=== PATIENT | male | born 1955 | race Caucasian/White ===

== ENCOUNTER 2025-07-20 14:23 | Inpatient (IN) | payer MEDICARE, MEDICAID, SELFPAY ==
[2025-07-20] VITALS (8 sets, daily range): BP systolic 110–138; BP diastolic 53–72; PULSE 79–101; RESP 16–20; TEMP 36.6–37.2; O2SAT 94–100; BMI 24.8
--- NOTE | ~2025-07-20 | FL_ITS ---
EXAMINATION: FL GUIDANCE ONLY HISTORY: stone COMPARISON: Correlation is made with an unenhanced CT of the abdomen and pelvis dated 07/20/2025. TECHNIQUE: Fluoroscopy time: 35 seconds. Cumulative Dose: 9.60 mGy. DAP: 1989.10 mGycm2 Images: 5. FINDINGS: A right ureterogram demonstrates an ovoid filling defect in the distal ureter consistent with the ureteral calculus noted on CT. The proximal ureter is not opacified. The final images demonstrate placement of a nephroureteral stent. FL/FL guidance in OR IMPRESSION: Fluoroscopy during procedure. Please see procedure report for additional information. Electronically signed by: Hipolito Johnson MD 08/05/2025 07:25 AM [place]
--- NOTE | ~2025-07-20 | CT_ITS ---
CLINICAL HISTORY: pronounced recat bleed, bright red CT angio abdomen pelvis with and without contrast. (GI bleed protocol) Comparison: None provided Findings: Lung bases: Clear. Liver: Subcentimeter hypodensity in inferior segment 3, too small to characterize. No biliary ductal dilatation. Patent portal vein. Gallbladder: Noninflamed gallbladder. Spleen: Splenomegaly measuring 15.4 cm Pancreas: No solid mass or main duct dilation. Adrenal glands: No nodules. Kidneys: Moderate right hydroureteronephrosis secondary to a 6 mm stone in the distal right ureter (series 15, image 597). Pelvic organs: Multiple layering stones in the bladder (series 15, image 669). Prostate calcifications. Peritoneum and Gastrointestinal: Hyperdense material within the rectum. Colonic diverticulosis without acute diverticulitis. No bowel obstruction, pneumoperitoneum, or ascites. Lymph nodes: No lymphadenopathy. Vessels: Atherosclerosis. Bones and soft tissues: Multilevel degenerative changes. IMPRESSION: Hyperdense material within the rectum likely represents hematoma. No true arterial phase was able to be obtained during the CT to evaluate for an active arterial bleed. Moderate right hydroureteronephrosis secondary to a 6 mm stone in the distal right ureter. Multiple layering stones in the bladder. This document has been electronically signed by: Dariana Milligan MD on 07/20/2025 19:39:29
--- NOTE | 2025-07-20 15:18 | ECG_ITS ---
Test Reason : AMS Blood Pressure : */* mmHG Vent. Rate : 89 BPM Atrial Rate : 89 BPM P-R Int : 140 ms QRS Dur : 96 ms QT Int : 368 ms P-R-T Axes : 50 27 43 degrees QTcB Int : 447 ms Normal sinus rhythm Normal ECG When compared with ECG of 19-Jan-2014 09:49, No significant change was found Referred By: Johanna Slater Electronically Signed By: JUAN KIM MD
--- OUTSIDE RECORDS SUMMARY | 2025-07-20 15:49 | XMS_ITS | Encounter Summary ---
Author Organization [facility] Address [address] [place] [address] Care Team Providers Care Book Repairer Name Role Phone Jacek Atwood MD Primary Care Provider [phone]- [phone] Encounter Details Date Type Department Care Team (Late st Contact Info) Description 12/03/2024 Lab Requisition [facility] - Main Lab [address] [facility] [place] [address] Jacek Atwood MD [address] [place] [id number] Type 2 diabetes mellitus without complications (CMS/HCC V24, CMS/HCC V28); Hypothyroidism, unspecified; Essential (primary) hypertension; Hyperlipidemia, unspecified; Encounter for screening for malignant neoplasm of prostate; Elevated prostate specific antigen (PSA) Social History Tobacco Use Types Packs/Day Years Used Date Smoking Tobacco: Never Assessed Sex and Gender Information Value Date Recorded Sex Assigned at Not on file Legal Sex Male 1:06 AM EST Gender Identity Not on file Sexual Orientation Not on file documented as of this encounter Plan of Treatment Not on file documented as of this encounter Procedures Procedure Name Priority Date/Time Associated Diagnosis Comments PSA TOTAL, FREE AND COMPLEXED, DIAGNOSTIC Routine 12/03/2024 8:32 AM EDT Type 2 diabetes mellitus without complications Hypothyroidism, unspecified Essential (primary) hypertension Hyperlipidemia, unspecified Encounter for screening for malignant neoplasm of prostate Elevated prostate specific antigen (PSA) SST - GOLD Routine 12/03/2024 8:32 AM EDT Type 2 diabetes mellitus without complications Hypothyroidism, unspecified Essential (primary) hypertension Hyperlipidemia, unspecified Encounter for screening for malignant neoplasm of prostate Elevated prostate specific antigen (PSA) LIPID PANEL WITH REFLEX TO DIRECT LDL Routine 12/03/2024 8:32 AM EDT Type 2 diabetes mellitus without complications Hypothyroidism, unspecified Essential (primary) hypertension Hyperlipidemia, unspecified Encounter for screening for malignant neoplasm of prostate Elevated prostate specific antigen (PSA) THYROID STIMULATING HORMONE Routine 12/03/2024 8:32 AM EDT Type 2 diabetes mellitus without complications Hypothyroidism, unspecified Essential (primary) hypertension Hyperlipidemia, unspecified Encounter for screening for malignant neoplasm of prostate Elevated prostate specific antigen (PSA) THYROXINE FREE Routine 12/03/2024 8:32 AM EDT Type 2 diabetes mellitus without complications Hypothyroidism, unspecified Essential (primary) hypertension Hyperlipidemia, unspecified Encounter for screening for malignant neoplasm of prostate Elevated prostate specific antigen (PSA) COMPREHENSIVE METABOLIC PANEL Routine 12/03/2024 8:32 AM EDT Type 2 diabetes mellitus without complications Hypothyroidism, unspecified Essential (primary) hypertension Hyperlipidemia, unspecified Encounter for screening for malignant neoplasm of prostate Elevated prostate specific antigen (PSA) documented in this encounter Results * SST tube (12/03/2024 8:32 AM EDT) Extra Tube Hold for add-ons. 12/03/2024 12:02 PM EDT [facility] Comment:Auto resulted. Blood Venous blood specimen / Unknown 12/03/2024 8:32 AM EDT 12/03/2024 10:57 AM EDT us Jacek Atwood MD LAB BLOOD ORDERABLES Final Result [facility] [address] [place] [address], * Thyroxine free (12/03/2024 8:32 AM EDT) Free T4 0.96 0.70 - 1.80 ng/dL LAB CHEMISTRY METHOD 12/03/2024 1:56 PM EDT [facility] Blood Venous blood specimen / Unknown Venipuncture / Unknown 12/03/2024 8:32 AM EDT 12/03/2024 10:38 AM EDT us Jacek Atwood MD LAB BLOOD ORDERABLES Final Result Performing Organization Address City/[facility]/ZIP Co de Phone Number [facility] [address] [place] [address], [place] [phone] * Thyroid stimulating hormone (12/03/2024 8:32 AM EDT) TSH 1.44 0.40 - 4.00 mcIU/mL LAB CHEMISTRY METHOD 12/03/2024 1:58 PM EDT [facility] Blood Venous blood specimen / Unknown Venipuncture / Unknown 12/03/2024 8:32 AM EDT 12/03/2024 10:38 AM EDT us Jacek Atwood MD LAB BLOOD ORDERABLES Final Result Performing Organization Address [facility]/ZIP Co de Phone Number [facility] [address] [place] [address], * PSA total, free and complexed (12/03/2024 8:32 AM EDT) PSA 1.47 0.00 - 4.00 ng/mL LAB CHEMISTRY METHOD 12/03/2024 1:58 PM EDT [facility] PSA, Complexed 0.85 0.00 - 3.00 ng/mL LAB CHEMISTRY METHOD 12/03/2024 1:58 PM EDT [facility] PSA, Free 0.6 ng/mL LAB CHEMISTRY METHOD 12/03/2024 1:58 PM EDT [facility] PSA, Free Pct 40.8 >25.0 % LAB CHEMISTRY METHOD 12/03/2024 1:58 PM EDT [facility] Blood Venous blood specimen / Unknown Venipuncture / Unknown 12/03/2024 8:32 AM EDT 12/03/2024 10:38 AM EDT Narrative [facility] - 12/03/2024 1:58 PM EDT Free PSA is a calculated value. The diagnostic usefulness of % free PSA has not been established in patients with Total PSA below 2.6 or above 10 ng/mL. This test was performed using the Centaur Chemiluminescent method. PSA values obtained with other methods cannot be used interchangeably. Jacek Atwood MD LAB BLOOD ORDERABLES Final Result [facility] [address] [place] [address], [place] [phone] * (ABNORMAL) Lipid panel with reflex to direct LDL (12/03/2024 8:32 AM EDT) Cholesterol 163 0 - 200 mg/dL LAB CHEMISTRY METHOD 12/03/2024 12:14 PM EDT [facility] Triglycerides 305(H) 0 - 150 mg/dL LAB CHEMISTRY METHOD 12/03/2024 12:14 PM [facility] HDL 31(L) >=40 mg/dL LAB CHEMISTRY METHOD 12/03/2024 12:14 PM [facility] LDL Calculated 71 0 - 100 mg/dL LAB CHEMISTRY METHOD 12/03/2024 12:14 PM EDT [facility] VLDL Cholesterol Lonnie 61 mg/dL LAB CHEMISTRY METHOD 12/03/2024 12:14 PM EDT [facility] Non HDL Chol. (LDL+VLDL) 132 <145 mg/dL LAB CHEMISTRY METHOD 12/03/2024 12:14 PM [facility] Chol/HDL Ratio 5.3(H) 0.0 - 4.4 LAB CHEMISTRY METHOD 12/03/2024 12:14 PM [facility] Blood Venous blood specimen / Unknown Venipuncture / Unknown 12/03/2024 8:32 AM EDT 12/03/2024 10:38 AM EDT us Jacek Atwood MD LAB BLOOD ORDERABLES Final Result [facility] [address] [place] [address], [place] [phone] * (ABNORMAL) Comprehensive metabolic panel (12/03/2024 8:32 AM EDT) Sodium 142 133 - 145 mmol/L LAB CHEMISTRY METHOD 12/03/2024 12:14 PM [facility] Potassium 4.1 3.5 - 5.5 mmol/L LAB CHEMISTRY METHOD 12/03/2024 12:14 PM [facility] Chloride 108 96 - 110 mmol/L LAB CHEMISTRY METHOD 12/03/2024 12:14 PM [facility] CO2 25 21 - 32 mmol/L LAB CHEMISTRY METHOD 12/03/2024 12:14 PM [facility] Anion Gap 9 3 - 11 LAB CHEMISTRY METHOD 12/03/2024 12:14 PM [facility] Glucose 112(H) 70 - 100 mg/dL LAB CHEMISTRY METHOD 12/03/2024 12:14 PM [facility] BUN 17 5 - 25 mg/dL LAB CHEMISTRY METHOD 12/03/2024 12:14 PM [facility] Creatinine 1.13 0.70 - 1.30 mg/dL LAB CHEMISTRY METHOD 12/03/2024 12:14 PM [facility] eGFR 70 >=60 mL/min/1. 73m2 LAB CHEMISTRY METHOD 12/03/2024 12:14 PM [facility] Comment:Calculation based on the Chronic Kidney Disease Epidemiology Collaboration (CKD-EPI) equation refit without adjustment for race. BUN/Creatinine Ratio 15.0 LAB CHEMISTRY METHOD 12/03/2024 12:14 PM [facility] Calcium 9.6 8.5 - 10.5 mg/dL LAB CHEMISTRY METHOD 12/03/2024 12:14 PM EDT [facility] AST (SGOT) 23 10 - 42 unit/L LAB CHEMISTRY METHOD 12/03/2024 12:14 PM T [facility] ALT (SGPT) 31 10 - 60 unit/L LAB CHEMISTRY METHOD 12/03/2024 12:14 PM EDT [facility] Alkaline Phosphatase 43 42 - 121 unit/L LAB CHEMISTRY METHOD 12/03/2024 12:14 PM EDT [facility] Total Protein 7.2 6.0 - 8.0 g/dL LAB CHEMISTRY METHOD 12/03/2024 12:14 PM T [facility] Albumin 4.2 3.2 - 5.0 g/dL LAB CHEMISTRY METHOD 12/03/2024 12:14 PM T [facility] Total Bilirubin 0.3 0.0 - 1.4 mg/dL LAB CHEMISTRY METHOD 12/03/2024 12:14 PM T [facility] Blood Venous blood specimen / Unknown Venipuncture / Unknown 12/03/2024 8:32 AM EDT 12/03/2024 10:38 AM EDT us Jacek Atwood MD LAB BLOOD ORDERABLES Final Result [facility] [address] [place] [address], documented in this encounter Visit Diagnoses Diagnosis Type 2 diabetes mellitus without complications (CMS/HCC V24, CMS/HCC V28) Hypothyroidism, unspecified Essential (primary) hypertension Unspecified essential hypertension Hyperlipidemia, unspecified Encounter for screening for malignant neoplasm of prostate Elevated prostate specific antigen (PSA) documented in this encounter Care Teams Book Repairer Relationship Specialty Start Date End Date Jacek Atwood MD [address] [place] [id number] PCP - General Internal Medicine 12/03/24 documented as of this encounter
--- OUTSIDE RECORDS SUMMARY | 2025-07-20 15:49 | XMS_ITS | Encounter Summary ---
Author Organization [facility] Address [address] [place] [address] Care Team Providers Care Chief Of Harbor Patrol Name Role Phone Jacek Atwood MD Primary Care Provider [phone]- [phone] Encounter Details Date Type Department Care Team (Latest Contact Info) Description 12/09/2024 Lab Requisition [facility] [address] [facility] [place] [address] Nubia Carmona MD [facility] [address] [place] [address] Type 2 diabetes mellitus without complications (CMS/HCC V24, CMS/HCC V28); Hypothyroidism, unspecified Social History Tobacco Use Types Packs/Day Years [...] Procedure Name Priority Date/Time Associated Diagnosis Comments COMPLETE BLOOD COUNT Routine 12/10/2024 7:12 AM EDT Type 2 diabetes mellitus without complications Hypothyroidism, unspecified HEMOGLOBIN A1C Routine 12/10/2024 7:12 AM EDT Type 2 diabetes mellitus without complications Hypothyroidism, unspecified documented in this encounter Results * Hemoglobin A1c (12/10/2024 7:12 AM EDT) Hemoglobin A1C 5.4 <6.5 % LAB CHEMISTRY METHOD 12/10/2024 2:21 PM EDT [facility] Mean Bld Glu Estim. 108 mg/dL LAB CHEMISTRY METHOD 12/10/2024 2:21 PM EDT [facility] Blood Venous blood specimen / Unknown Venipuncture / Unknown 12/10/2024 7:12 AM EDT 12/10/2024 9:20 AM EDT us Nubia Carmona MD LAB BLOOD ORDERABLES Final R esult [facility] [address] [place] [address], * (ABNORMAL) Complete blood count (12/10/2024 7:12 AM EDT) WBC 4.4(L) 4.8 - 10.8 K/mcL LAB HEMETOLOGY METHOD 12/10/2024 9:38 AM EDT [facility] RBC 4.20(L) 4.50 - 5.50 M/mcL LAB HEMETOLOGY METHOD 12/10/2024 9:38 AM EDT [facility] Hemoglobin 12.4(L) 13.5 - 17.5 g/dL LAB HEMETOLOGY METHOD 12/10/2024 9:38 AM EDT [facility] Hematocrit 37.8(L) 42.0 - 54.0 % LAB HEMETOLOGY METHOD 12/10/2024 9:38 AM EDT [facility] MCV 89.4 79.0 - 98.0 FL LAB HEMETOLOGY METHOD 12/10/2024 9:38 AM EDT [facility] MCH 29.3 27.0 - 32.0 pcg LAB HEMETOLOGY METHOD 12/10/2024 9:38 AM EDT [facility] MCHC 32.8 32.0 - 37.0 g/dL LAB HEMETOLOGY METHOD 12/10[facility] RDW 14.0 11.0 - 15.0 % LAB HEMETOLOGY METHOD 12/10/2024 9:38 AM EDT [facility] Platelets 134 130 - 400 K/mcL LAB HEMETOLOGY METHOD 12/10/2024 9:38 AM EDT [facility] MPV 10.8 7.0 - 11.0 FL LAB HEMETOLOGY METHOD 12/10/2024 9:38 AM EDT [facility] NRBC 0.0 <1.0 % LAB HEMETOLOGY METHOD 12/10/2024 9:38 AM EDT [facility] NRBC Absolute 0.00 <0.10 K/mcL LAB HEMETOLOGY METHOD 12/10/2024 9:38 AM EDT [facility] Blood Venous blood specimen / Unknown Venipuncture / Unknown 12/10/2024 7:12 AM EDT 12/10/2024 9:20 AM EDT us Nubia Carmona MD LAB BLOOD ORDERABLES Final R esult [facility] [address] [place] [address], documented in this encounter Visit Diagnoses Diagnosis Type 2 diabetes mellitus without complications (CMS/HCC V24, CMS/HCC V28) Hypothyroidism, unspecified documented in this encounter Care Teams Chief Of Harbor Patrol Relationship Specialty Start Date End Date Jacek Atwood MD [address] [place] [phone] PCP - General Internal Medicine 12/03/24 documented as of this encounter
--- OUTSIDE RECORDS SUMMARY | 2025-07-20 15:49 | XMS_ITS | Clinical Summary ---
Author Organization [address] [facility] Address [address] [place] [address] Phone Care Team Providers Care Bank Officer Name Role Phone Jacek Atwood MD Primary Care Provider +1- [phone] Social History Tobacco Use Types Packs/Day Years Used Date Smoking Tobacco: Never Assessed Sex and Gender Information Value Date Recorded Sex Assigned at Not on file Legal Sex Male 1:06 AM EST Gender Identity Not on file Sexual Orientation Not on file Plan of Treatment Health Maintenance Due Date Last Done Comments Colorectal Cancer Screening: Colonoscopy 1955 DTaP,Tdap,and Td Vaccines (1 - Tdap) 1974 Pneumococcal Vaccine: 50+ Ye ars (1 of 2 - PCV) 1974 Zoster Vaccines (1 of 2) 2005 Abdominal Aortic Aneurysm (A AA) Screen 08/14/2022 Falls Risk Assessment 08/14/2022 Hepatitis C Screening 08/14/2022 Medicare Annual Wellness Visit 08/14/2022 Social Influencers of Health Screening 08/14/2022 Depression Screening 09/11/2024 COVID-19 Vaccine (1 - 2023-2 5 season) 2025 Influenza Vaccine (#1) 2025 Cholesterol Screening (Lipid Panel) 12/03/2029 12/03/2024 RSV Immunization Adult Patie nts (1 - 1-dose 75+ series) 2030 HIB Vaccines Aged Out No longer eligi ble based on patient's age to complete this topic HPV Vaccines Aged Out No longer eligi ble based on patient's age to complete this topic Hepatitis A Vaccines Aged Out No long er eligible based on patient's age to complete this topic Hepatitis B Vaccines Aged Out No long er eligible based on patient's age to complete this topic IPV Vaccines Aged Out No longer eligi ble based on patient's age to complete this topic MMR Vaccines Aged Out No longer eligi ble based on patient's age to complete this topic Meningococcal ACWY Vaccine Aged Out N o longer eligible based on patient's age to complete this topic Meningococcal B Vaccine Aged Out No l onger eligible based on patient's age to complete this topic RSV Immunization Patients Un hilton 20 months Aged Out No longer eligible b ased on patient's age to complete this topic Varicella Vaccines Aged Out No longer eligible based on patient's age to complete this topic Procedures Procedure Name Priority Date/Time Associated Diagnosis Comments LIPID PANEL WITH REFLEX TO DIRECT LDL Routine 12/03/2024 8:32 AM EDT Type 2 diabetes mellitus without complications Hypothyroidism, unspecified Essential (primary) hypertension Hyperlipidemia, unspecified Encounter for screening for malignant neoplasm of prostate Elevated prostate specific antigen (PSA) from Last 3 Months or Most Recently Relevant to Health Maintenance Results * (ABNORMAL) Lipid panel with reflex to direct LDL (12/03/2024 8:32 AM EDT) Cholesterol 163 0 - 200 mg/dL LAB CHEMISTRY METHOD 12/03/2024 12:14 PM [facility] Triglycerides 305(H) 0 - 150 mg/dL LAB CHEMISTRY METHOD 12/03/2024 12:14 PM [facility] HDL 31(L) >=40 mg/dL LAB CHEMISTRY METHOD 12/03/2024 12:14 PM [facility] LDL Calculated 71 0 - 100 mg/dL LAB CHEMISTRY METHOD 12/03/2024 12:14 PM [facility] VLDL Cholesterol Lonnie 61 mg/dL LAB CHEMISTRY METHOD 12/03/2024 12:14 PM [facility] Non HDL Chol. (LDL+VLDL) 132 <145 mg/dL LAB CHEMISTRY METHOD 12/03/2024 12:14 PM [facility] Chol/HDL Ratio 5.3(H) 0.0 - 4.4 LAB CHEMISTRY METHOD 12/03/2024 12:14 PM [facility] Blood Venous blood specimen / Unknown Venipuncture / Unknown 12/03/2024 8:32 AM EDT 12/03/2024 10:38 AM EDT Jacek Atwood MD LAB BLOOD ORDERABLES Final Result [facility] [address] [place] [address], from Last 3 Months or Most Recently Relevant to Health Maintenance Insurance MEDICAID - [place] MEDICARE Care Teams Bank Officer Relationship Specialty Start Date End Date Jacek Atwood MD [address] [place] [address] PCP - General Internal Medicine 12/03/24
[2025-07-20 16:18] LABS: MANUAL DIFF FLAG NO
--- NOTE | 2025-07-20 16:35 | PC.NURSE ---
Patient's sister at bedside visiting. Dr. Huynh to evaluate the patient.
--- NOTE | 2025-07-20 16:38 | ED_ITS ---
HPI - General Adult General Chief complaint: Altered Mental Status Stated complaint: DIZZINESS Time Seen by Provider: 07/20/25 16:18 Source: patient and family (sister) Mode of arrival: EMS Limitations: other (Some degree of cognitive disability) History of Present Illness ED Provider: HPI narrative: 70-year-old male here with sister, they presented due to patient falling down and that he has had increased paranoia of his roommate without any SI or HI, he has been stable on his medications, patient states he feels better now, and not until his blood work revealed significant anemia did he disclosed that he has had rectal bleeding when he moves his bowels. Sounds like for the past 1 week. No abdominal pain. Related Data Allergies Allergy/AdvReac Type Severity Reaction Status Date / Time fluphenazine (From PROLIXIN) Allergy Severe SEIZURES Verified 07/20/25 14:58 proxlin AdvReac Unknown seizures Uncoded 07/20/25 14:58 Review of Systems 2 Constitutional: Constitutional: Reports as per [facility] Social History Social History Smoked in Last 30 Days: No Use of substances other than those prescribed or required for medical reasons: No Advance Directives: No Advance Directives Information Provided: Yes Physical Exam ED Exam Exam: General: ?Appears of stated age ? ?pale conjunctiva ? Neck: Supple, no LAD ? ?CV: RRR, no obvious murmurs appreciated ? ?Resp: ?No wheezing rales rhonchi no stridor moving air well ? Abd: ?Bowel sounds are present, no tenderness no rebound no rigidity Rectal exam with empty rectal vault as when I removed my digit there was some bright red blood squirted out of the anus ? ?MSK: FROM, strength 5/5 all extremities ? Skin: Warm, dry, intact, ? ?Neuro: ?Alert and oriented x3, moving upper and lower extremities symmetrically, no obvious facial asymmetry noted, cranial nerves 2-12 intact Vital Signs: Vital Signs - 24 hr 07/20/25 14:50 07/20/25 18:16 07/20/25 18:31 Temperature 97.8 F 97.8 F 98.7 F Pulse Rate 97 95 88 Respiratory Rate 18 18 16 Blood Pressure 122/62 115/53 L 122/62 Pulse Oximetry 94 Oxygen Delivery Method Room Air 07/20/25 18:31 07/20/25 20:02 07/20/25 20:25 Temperature 98.7 F 98.9 F 98.7 F Pulse Rate 88 88 87 Respiratory Rate 16 18 16 Blood Pressure 122/62 124/63 118/59 L Pulse Oximetry 100 Oxygen Delivery Method Room Air BMI result Body Mass Index 24.8 Medications Administered Discontinued Medications Generic Name Dose Route Start Last Admin Trade Name Ortegaq PRN Reason Stop Dose Admin Iohexol 100 ml 07/20/25 17:33 07/20/25 17:36 Iohexol 350 Mg/Ml 100 Ml Infus..Btl IV 07/20/25 17:34 80 ml ONCE ONE Administration Pantoprazole Sodium 80 mg 07/20/25 17:06 07/20/25 17:45 Pantoprazole Sodium 40 Mg/10 Ml Vial IVPUSH 07/20/25 17:07 80 mg ONCE ONE Administration Medical Decision Making Medical Decision Making [facility] Narrative: 5:13 PM 07/20/2025 (Dr. Ervin Huynh): Patient is presenting with what appears to be lower rectal bleeding, we will obtain CT angiography to evaluate for ongoing bleed that can be addressed with interventional radiology, I also sent tiger text to Dr. Townsend who acknowledged my plan for angiography, blood transfusion Blood consent obtained, patient is able to sign for self according to his sister 7:52 PM 07/20/2025 (Dr. Ervin Huynh): Incidental finding of 6 mm ureteral stone with hydro nephrosis, urine without infection, I would like Dr. Navas from Urology no, patient we will be consulted on tomorrow morning, I also updated GI Dr. Townsend regarding CT abdomen and pelvis, there is some collection in the rectum may represent hematoma but arterial phase did not go through, but patient is re-evaluated, he has not had any rectal bleeding. He is receiving blood, blood pressure stable, he is states he is feeling very well. We will repeat CBC after 1st unit and we will trend Differential Diagnosis Differential Diagnoses: The differential diagnosis associated with the presentation includes (Upper GI bleed, lower GI bleed, rectal mass, bleeding polyp) Admission/Observation Consideration of admission/observation: Escalation of care including admission/observation considered Consult Healthcare Provider Management of the patient was discussed with: Rn Obgyn (GI) Lab Data [facility] Lab Attestation statement: I reviewed the patient's lab results. 07/20/25 16:14 07/20/25 16:14 Labs: Lab Results 07/20/25 07/20/25 07/20/25 Range/Units 16:14 17:00 17:06 WBC 6.0 (4.8-10.8) X10*3/uL RBC 1.68 L (4.60-5.80) X10*6/uL Hgb 4.3 L* (14.0-18.0) g/dl Hct 14.0 L* (42.0-52.0) % MCV 83.3 (80.0-98.0) fL MCH 25.6 L (27.0-33.0) pg MCHC 30.7 L (31.0-36.0) g/dl RDW 15.1 (11.0-16.0) % Plt Count 169 (160-400) X10*3/uL MPV 11.4 (9.4-12.4) fL Immature Gran % (Auto) 0.8 H (0.0-0.4) % Neut % (Auto) 79.1 H (45-73) % Lymph % (Auto) 13.1 L (20-40) % [place] % (Auto) 6.8 (2-11) % Eos % (Auto) 0.0 (0-4) % Baso % (Auto) 0.2 (0-2) % Lymph # (Auto) 0.8 L (1.2-4.9) X10*3/uL [place] # (Auto) 0.4 (0.1-1.2) X10*3/uL Eos # (Auto) 0.0 (0.0-0.4) X10*3/uL Baso # (Auto) 0.0 (0.0-0.2) X10*3/uL Abs Immat Gran (auto) 0.05 H (0.00-0.03) X10*3/uL Absolute Neuts (auto) 4.8 (2.0-8.3) x10*3/uL Absolute Nucleated RBC 0.000 (0.0-0.012) X10*3/uL Nucleated RBC % (auto) 0.0 (0.0-0.2) /100WBC Sodium 144 (135-145) mmol/L Potassium 3.9 (3.3-5.1) mmol/L Chloride 116 H (96-108) mmol/L Carbon Dioxide 21 L (22-29) mmol/L Anion Gap 11 L (12-20) BUN 22 H (9-16) mg/dL Creatinine 1.53 H (0.5-1.4) mg/dL Estim Creat Clear Calc 52.2 Estimated GFR 45 Random Glucose 119 H (60-115) mg/dL Calcium 8.2 L (8.4-10.2) mg/dL Magnesium 2.1 (1.6-2.6) mg/dL Total Bilirubin 0.1 (0.0-1.0) mg/dL AST 23 (5-37) U/L ALT 16 (0-40) U/L Alkaline Phosphatase 35 L (39-117) U/L Total Protein 5.9 L (6.5-8.0) g/dL Albumin 4.0 (3.5-5.0) g/dL Urine Color Yellow Urine Appearance Clear Urine pH 7.0 (5.0-9.0) Ur Specific [place] 1.015 (1.005-1.025) Urine Protein Negative (Neg-Trace) mg/dL Urine Glucose (UA) Negative (Negative) mg/dL Urine Ketones Negative (Negative) mg/dL Urine Blood Negative (Negative) Urine Nitrite Negative (Negative) Ur Leukocyte Esterase Trace H (Negative) Urine RBC 0-2 (0-2) /HPF Urine WBC 0-5 (0-5) /HPF Ur Squamous Epith Cells 0-2 (0-2) /HPF Urine Bacteria None Seen (None Seen) Hyaline Casts 0-2 (0-2) /LPF Stool Occult Blood POSITIVE (NEGATIVE) Influenza Type A (PCR) NEGATIVE (Negative) Influenza Type B (PCR) NEGATIVE (Negative) RSV RNA Qual (PCR) NEGATIVE (Negative) SARS-CoV-2 RNA (RT-PCR) NEGATIVE (Negative) Blood Type A Negative Antibody Screen NEGATIVE Crossmatch See Detail Independent Interpretation I performed an independent interpretation of an: EKG (89 beats per minute otherwise normal ECG without dysrhythmia, AV scot blocks or ST-T changes to suspect underlying ACS, my independent interpretation) Radiology Impression Discussion of test interpretation with radiology: I have reviewed the radiologist's reading. ([address] [address] [address] Scan Report Signed with Ana Maríaenda Patient: Joe Morris MR#: [id number] : 1955 Acct:[id number] Age/Sex: 70 / M ADM Date: 07/20/25 Loc: HO.ED Attending Dr: Ordering Physician: Ervin Huynh DO Date of Service: 07/20/25 Pro) Independent Historian Clinical information obtained from an independent historian. History obtained from or confirmed by: Other (sister) Critical Care Time Critical Care Time Critical Care Time: Yes Total Critical Care Time: 45 Attestation: Time is exclusive of separately billable procedures. Time includes: direct patient care, patient reassessment, coordination of patient care, interpretation of data (laboratory data, pulse oximetry, arterial blood gases and chest xrays), review of patient's medical records, medical consultation and documentation of patient care. Procedures excluded from critical care time: central intravenous line placement and electrocardiography. Discharge Plan Discharge Clinical Impression: Bright red rectal bleeding, Anemia requiring transfusions, Hydroureteronephrosis Patient Disposition: Admitted As Inpatient Print Language: Latvian
[2025-07-20 16:42] LABS: Imm Gran Abs Auto 0.05 X10*3/uL (0.00-0.03); Imm Gran Pct Auto 0.8 % (0.0-0.4); Lymphocytes Absolute Auto 0.8 X10*3/uL (1.2-4.9); Mean Corpuscular HGB Conc 30.7 g/dl (31.0-36.0); Mean Corpuscular Hemoglobin 25.6 pg (27.0-33.0); Mean Corpuscular Volume 83.3 fL (80.0-98.0); NRBC Abs Auto 0.000 X10*3/uL (0.0-0.012); NRBC Pct Auto 0.0 /100WBC (0.0-0.2); Platelet Count 169 X10*3/uL (160-400); Red Blood Count 1.68 X10*6/uL (4.60-5.80); White Blood Count 6.0 X10*3/uL (4.8-10.8)
[2025-07-20 16:50] LABS: Alanine Aminotransferase 16 U/L (0-40); Albumin Level 4.0 g/dL (3.5-5.0); Alkaline Phosphatase 35 U/L (39-117); Anion Gap 11 (12-20); Aspartate Amino Transferase 23 U/L (5-37); Blood Urea Nitrogen 22 mg/dL (9-16); Calcium 8.2 mg/dL (8.4-10.2); Carbon Dioxide 21 mmol/L (22-29); Chloride 116 mmol/L (96-108); Creatinine Clr Calc Pharmacy 52.2; Estimated Glomerular Filt Rate 45; Magnesium 2.1 mg/dL (1.6-2.6); Potassium 3.9 mmol/L (3.3-5.1); Sodium 144 mmol/L (135-145); Total Protein 5.9 g/dL (6.5-8.0)
[2025-07-20 16:52] LABS: Hematocrit 14.0 % (42.0-52.0); Hemoglobin 4.3 g/dl (14.0-18.0)
--- NOTE | 2025-07-20 17:00 | PC.NURSE ---
Occult blood stool/rectal exam: positive. Rambo red blood squirted from rectum during rectal exam by Dr. Huynh. Pt reported oh yeah, I've had some blood in my poop for a couple of weeks . Forgetful, needs reminders. Sister reports he doesn't complain or tell people when something is wrong . Pale since arrival. Urine specimen, type & screen, OBSx1, and IV access obtained at this time. Care ongoing by this RN.
[2025-07-20 17:14] LABS: OBS Int Ctl Valid YES; OBS1 POSITIVE (NEGATIVE)
[2025-07-20 17:18] LABS: Appearance Urine Clear; Glucose Urine UA Negative (Negative); PH 7.0 (5.0-9.0); Specific Gravity - Urine 1.015 (1.005-1.025); UMIC TRIGGER UACC YES
[2025-07-20 17:24] LABS: Resp Syncy Virus RNA Qual PCR NEGATIVE (Negative); SARS COV2 PCR INHOUSE NEGATIVE (Negative)
--- NOTE | 2025-07-20 17:32 | PC.NURSE ---
IV access obtained to right forearm (20g) and left AC (20g). Away for CT scan at this time. Type & Screen drawn and sent for analysis at 17:00. Results pending. Plan to initiate blood transfusion upon notification from blood bank. Sister notified. Blood transfusion consent reviewed/signed. Protonix 80mg to be given upon return from CT scan. Care ongoing by this RN.
[2025-07-20] MEDS: iohexoL 350 MG/ML 100 ML INFUS..BTL IV (17:36)
--- NOTE | 2025-07-20 20:21 | P.HPHOSP_ITS ---
History of Present Illness Date of Service: 07/20/25 Attending physician on admission: Alvarado Wade Chief Complaint: fall pt is a 70 yo male with a pmhx significant for intellectual disability, HLD, schizophrenia, anxiety, T2DM s/p right toe amputation, HTN and OAB, who presented to the ED due to fall and altered mental status. the pt reportedly slid down the stairs and caught himself, no head strike. he has not been altered since arriving to the ED. the pt reports weakness and a fall 1 week ago as well. he did not mention rectal bleeding initially, but was found to be profoundly anemic and have active bright red rectal bleeding on exam in the ED. the pt then reported rectal bleeding with BMs for the past month. no abd pain, nausea or vomiting. Review of Systems 2 Constitutional: Constitutional: Denies body ache(s), Denies chills, Reports fatigue, Denies headache(s) and Reports weakness Eyes: Eyes: Denies change in vision ENT: Denies headache(s), Denies nasal congestion and Denies sore throat Cardiovascular: Cardiovascular: Denies chest pain, Denies rapid heart rate, Denies leg edema, Denies lightheadedness and Denies dyspnea Respiratory: Respiratory: Denies chest congestion, Denies cough, Denies dyspnea and Denies wheezing Gastrointestinal: Gastrointestinal: Reports as per HPI Genitourinary: Genitourinary: Denies dysuria, Denies urinary frequency and Denies urinary urgency Musculoskeletal: Musculoskeletal: Denies myalgias Integumentary/Breasts: Skin/Breast: Denies rash Neurologic: Denies confusion, Denies headache(s) and Reports weakness Psychiatric: Psychiatric: Denies confusion Endocrine: Endocrine: Reports fatigue Hematologic/Lymphatic: Hematologic/Lymphatic: Denies easy bruising Allergic/Immunologic: Allergic/Immunologic: Denies wheezing [facility] Medical History (Updated 07/20/25 @ 21:19 by Milena Atkinson PA-C) OAB (overactive bladder) HTN (hypertension) Type 2 diabetes mellitus without complications Anxiety Schizophrenia HLD (hyperlipidemia) Intellectual disability Functional capacity: independent ambulation Surgical History (Updated 07/20/25 @ 21:18 by Milena Atkinson PA-C) Status post amputation of toe of right foot Social History Smoked in Last 30 Days: No Use of substances other than those prescribed or required for medical reasons: No Advance Directives: No Advance Directives Information Provided: Yes Narrative: no smoking, etoh or drug use Meds Allergies Allergy/AdvReac Type Severity Reaction Status Date / Time fluphenazine (From PROLIXIN) Allergy Severe SEIZURES Verified 07/20/25 14:58 proxlin AdvReac Unknown seizures Uncoded 07/20/25 14:58 Physical Exam 2 Vital Signs and Narrative: Vital Signs: Last Vital Signs Temp 98.9 F 07/20/25 20:02 Pulse 88 07/20/25 20:02 Resp 18 07/20/25 20:02 BP 124/63 07/20/25 20:02 Pulse Ox 100 07/20/25 20:02 O2 Del Method Room Air 07/20/25 20:02 BMI result Body Mass Index 24.8 General: AOx3, no acute distress Resp: CTA bilaterally CVS: S1, S2, RRR GI: +BS, NT, no distention Skin: Warm, dry, pallor Neuro: Cranial nerves II-XII grossly intact bilaterally. Motor grossly intact bilaterally Extremities: No pitting edema Psych: Appropriate affect Const: General: No confusion Orientation/consciousness: No confusion Neuro: General: No confusion Results Labs 07/20/25 20:36 07/20/25 16:14 Labs: Laboratory Results - last 24 hr 07/20/25 07/20/25 07/20/25 16:14 17:00 17:06 MCV 83.3 MCH 25.6 L MCHC 30.7 L RDW 15.1 Plt Count 169 MPV 11.4 Immature Gran % (Auto) 0.8 H Neut % (Auto) 79.1 H Lymph % (Auto) 13.1 L [place] % (Auto) 6.8 Eos % (Auto) 0.0 Baso % (Auto) 0.2 Lymph # (Auto) 0.8 L [place] # (Auto) 0.4 Eos # (Auto) 0.0 Baso # (Auto) 0.0 Abs Immat Gran (auto) 0.05 H Absolute Neuts (auto) 4.8 Absolute Nucleated RBC 0.000 Nucleated RBC % (auto) 0.0 Anion Gap 11 L Estim Creat Clear Calc 52.2 Estimated GFR 45 Random Glucose 119 H Calcium 8.2 L Magnesium 2.1 Total Bilirubin 0.1 AST 23 ALT 16 Alkaline Phosphatase 35 L Total Protein 5.9 L Albumin 4.0 Urine Color Yellow Urine Appearance Clear Urine pH 7.0 Ur Specific [place] 1.015 Urine Protein Negative Urine Glucose (UA) Negative Urine Ketones Negative Urine Blood Negative Urine Nitrite Negative Ur Leukocyte Esterase Trace H Urine RBC 0-2 Urine WBC 0-5 Ur Squamous Epith Cells 0-2 Urine Bacteria None Seen Hyaline Casts 0-2 Stool Occult Blood POSITIVE Influenza Type A (PCR) NEGATIVE Influenza Type B (PCR) NEGATIVE RSV RNA Qual (PCR) NEGATIVE SARS-CoV-2 RNA (RT-PCR) NEGATIVE Blood Type A Negative Antibody Screen NEGATIVE Crossmatch See Detail Assessment and Plan (1) ABLA (acute blood loss anemia): Status: Acute (2) Bright red rectal bleeding: Status: Acute (3) Hydroureteronephrosis: Status: Acute (4) MIGUEL (acute kidney injury): Status: Acute Plan pt is a 70 yo male with a pmhx significant for intellectual disability, HLD, schizophrenia, anxiety, T2DM s/p right toe amputation, HTN and OAB, who presented to the ED due to fall and altered mental status. found to be significant anemic with active rectal bleeding. ABLA with BRBPR - hgb 4.3 --> 4.7 after 1U - order 2 additional units - pantoprazole - GI consult - monitor CBC hydroureteronehprosis - urologist reviewed scans in ED, likely incidental no flank pain - urology consult - monitor Is and Os - monior BMP MIGUEL, likely hypoperfusion - transfusion as above - monitor BMP HLD - continue home meds schizophrenia/anxiety - olanzapine T2DM - monitor POC, no home meds - diabetic diet - A1C OAB - continue home meds HTN - normotensive, hold home meds med rec pending DNR/DNI VTE prophy: SCDs Pt with acute blood loss anemia secondary to rectal bleeding, complicated by MIGUEL, requiring admission for at least 2 midnight stay for blood transfusion and specialist consultations. Quality Stroke Does the patient have a stroke diagnosis?: No VTE Prior VTE?: No VTE Risk Level:: Medical - moderate - high VTE Device Contraindication: N/A - Device Ordered VTE Drug Contraindication: Treatment Not Indicated
[2025-07-20 20:40] LABS: MANUAL DIFF FLAG NO
[2025-07-20 20:43] LABS: Imm Gran Abs Auto 0.02 X10*3/uL (0.00-0.03); Imm Gran Pct Auto 0.4 % (0.0-0.4); Lymphocytes Absolute Auto 0.8 X10*3/uL (1.2-4.9); Mean Corpuscular HGB Conc 30.9 g/dl (31.0-36.0); Mean Corpuscular Hemoglobin 26.6 pg (27.0-33.0); Mean Corpuscular Volume 85.9 fL (80.0-98.0); NRBC Abs Auto 0.000 X10*3/uL (0.0-0.012); NRBC Pct Auto 0.0 /100WBC (0.0-0.2); Platelet Count 132 X10*3/uL (160-400); Red Blood Count 1.77 X10*6/uL (4.60-5.80); White Blood Count 5.5 X10*3/uL (4.8-10.8)
[2025-07-20 20:46] LABS: Hematocrit 15.2 % (42.0-52.0); Hemoglobin 4.7 g/dl (14.0-18.0)
--- NOTE | 2025-07-20 23:48 | PC.NURSE ---
Addendum entered by Melissa Li RN 07/20/25 23:55: When attempting to reprocess error states; requisition [id number] locked. Please try again Original Note: TW continues to receive error message stating TAR is locked in BBK. Unable to end transfusion though unit has transfused in its entirety as of 2331. VSS- 123/68, 80hr, 98.4temp, 15rr and 98% RA. Lab work sent down by RAMESH Laughlin.
[2025-07-21] VITALS (15 sets, daily range): BP systolic 105–133; BP diastolic 49–69; PULSE 66–85; RESP 14–22; TEMP 36.4–37.2; O2SAT 96–100
[2025-07-21 01:02] LABS: MANUAL DIFF FLAG NO
[2025-07-21 01:04] LABS: Imm Gran Abs Auto 0.02 X10*3/uL (0.00-0.03); Imm Gran Pct Auto 0.3 % (0.0-0.4); Lymphocytes Absolute Auto 0.9 X10*3/uL (1.2-4.9); Mean Corpuscular HGB Conc 31.2 g/dl (31.0-36.0); Mean Corpuscular Hemoglobin 27.4 pg (27.0-33.0); Mean Corpuscular Volume 87.9 fL (80.0-98.0); NRBC Abs Auto 0.000 X10*3/uL (0.0-0.012); NRBC Pct Auto 0.0 /100WBC (0.0-0.2); Platelet Count 140 X10*3/uL (160-400); Red Blood Count 2.15 X10*6/uL (4.60-5.80); White Blood Count 6.6 X10*3/uL (4.8-10.8)
[2025-07-21 01:10] LABS: Hematocrit 18.9 % (42.0-52.0); Hemoglobin 5.9 g/dl (14.0-18.0); INTERNATIONAL NORM RATIO 1.2 (0.9-1.1); Prothrombin Time 14.1 SEC (11.2-13.5)
--- NOTE | 2025-07-21 01:11 | PC.NURSE ---
PT noted to be dripping blood while ambulating to bathroom and claire noted to be soiled in blood around pts bottom. Critical labs results back- h/h 5.9/18.9. Notified provider. Plan for additional units of RBC, and ICU consult
[2025-07-21] MEDS: 0.9 % Sodium Chloride Flush 3 ML SYRINGE IVFLUSH ×4 (01:38→22:51)
--- NOTE | 2025-07-21 01:53 | PC.NURSE ---
PT assisted on bedpan in attempt to pass bowel. No bm noted, minor amount of blood noted in bed pelaez. Notified provider
[2025-07-21 05:11] LABS: Hematocrit 21.8 % (42.0-52.0); Mean Corpuscular HGB Conc 32.1 g/dl (31.0-36.0); Mean Corpuscular Hemoglobin 28.3 pg (27.0-33.0); Mean Corpuscular Volume 88.3 fL (80.0-98.0); NRBC Abs Auto 0.000 X10*3/uL (0.0-0.012); NRBC Pct Auto 0.0 /100WBC (0.0-0.2); Platelet Count 146 X10*3/uL (160-400); Red Blood Count 2.47 X10*6/uL (4.60-5.80); White Blood Count 7.3 X10*3/uL (4.8-10.8)
[2025-07-21 05:21] LABS: Hemoglobin 7.0 g/dl (14.0-18.0)
[2025-07-21 05:25] LABS: Anion Gap 9 (12-20); Blood Urea Nitrogen 20 mg/dL (9-16); Calcium 8.1 mg/dL (8.4-10.2); Carbon Dioxide 20 mmol/L (22-29); Chloride 118 mmol/L (96-108); Creatinine Clr Calc Pharmacy 64.4; Estimated Glomerular Filt Rate 58; Potassium 4.2 mmol/L (3.3-5.1); Sodium 143 mmol/L (135-145)
--- NOTE | 2025-07-21 06:29 | P.CNGI_ITS ---
History of Present Illness Data of Consult Service Date: 07/21/25 Requesting physician: Milena Atkinson Primary Care Provider: Jacek Atwood MD HPI 70 YM with intellectual disability, HLD, schizophrenia, anxiety, T2DM s/p right toe amputation, HTN and OAB seen at [facility] on 07/20/25 after a fall and altered mental status. The pt reportedly slid down the stairs and caught himself, no head strike. he has not been altered since arriving to the ED. He reported weakness and a fall 1 week ago as well. Pt did not mention rectal bleeding initially, and was found to be profoundly anemic (H & H of 4.3 & 14) and have active bright red rectal bleeding on exam in the ED. He then reported rectal bleeding with BMs for the past month. Pt denied abd pain, nausea or vomiting. H& H improved to 7 & 21 after 3 Units PRBC Pt is receiving 4th unit of PRBC. 07/20/25 CTA SHOWED: Hyperdense material within the rectum likely represents hematoma. No true arterial phase was able to be obtained during the CT to evaluate for an active arterial bleed. Moderate right hydroureteronephrosis secondary to a 6 mm stone in the distal right ureter. Multiple layering stones in the bladder. Review of Systems 2 Review of Systems: Yes all other systems are reviewed and are negative PMFSH Past Medical History Medical History (Updated 07/20/25 @ 21:19 by Milena Atkinson PA-C) OAB (overactive bladder) HTN (hypertension) Type 2 diabetes mellitus without complications Anxiety Schizophrenia HLD (hyperlipidemia) Intellectual disability Surgical History Surgical History (Updated 07/20/25 @ 21:18 by Milena Atkinson PA-C) Status post amputation of toe of right foot Social History Social History Smoked in Last 30 Days: No Use of substances other than those prescribed or required for medical reasons: No Advance Directives: No Advance Directives Information Provided: Yes Meds Allergies Allergy/AdvReac Type Severity Reaction Status Date / Time fluphenazine (From PROLIXIN) Allergy Severe SEIZURES Verified 07/20/25 14:58 proxlin AdvReac Unknown seizures Uncoded 07/20/25 14:58 Active Medications: Current Medications Acetaminophen (Acetaminophen 325 Mg Tablet) 975 mg PO Q6H PRN PRN Reason: Pain, Mild 1-3,fever,headache Calcium Carbonate (Calcium Carbonate 750 Mg Tab.Chew) 750 mg PO Q4H PRN PRN Reason: Heartburn Magnesium Hydroxide (Milk Of Magnesia 30 Ml Oral.Susp) 30 ml PO DAILY PRN PRN Reason: Constipation Melatonin (Melatonin 3 Mg Tablet) 6 mg PO BEDTIME PRN PRN Reason: Insomnia Ondansetron HCl (Ondansetron Hcl 4 Mg/2 Ml Vial) 4 mg IVPUSH Q8H PRN PRN Reason: Nausea and Vomiting Oxycodone HCl (Oxycodone Hcl Immed Release 5 Mg Tablet) 5 mg PO Q6H PRN PRN Reason: Pain, Severe (Pain Scale 7-10) Pantoprazole Sodium (Pantoprazole Sodium 40 Mg/10 Ml Vial) 40 mg IVPUSH BID@0630,1630 [facility] Sodium Chloride (0.9 % Sodium Chloride Flush 3 Ml Syringe) 3 ml IVFLUSH QSHIFT [facility] Last Admin: 07/21/25 01:38 Dose: 3 ml Tramadol HCl (Tramadol Hcl 50 Mg Tablet) 50 mg PO Q6H PRN PRN Reason: Pain, Moderate(Pain Scale 4-6) Physical Exam 2 Vital Signs: Vital Signs: Last Vital Signs Temp 97.9 F 07/21/25 05:02 Pulse 74 07/21/25 05:02 Resp 17 07/21/25 05:02 BP 130/69 07/21/25 05:02 Pulse Ox 99 07/21/25 04:57 O2 Del Method Room Air 07/21/25 01:55 BMI result Body Mass Index 24.8 Const: General: no acute distress Nutritional Appearance: average body habitus Orientation/consciousness: patient oriented x3 Limitations: other limitations (Schizophrenia) HEENT: Head: Yes normal to inspection Ears: hearing grossly normal bilaterally Mouth: Normal oral and palatal mucosa present Eyes: Sclerae: sclerae normal Pupils: Equal, round and reactive pupils present Neck: Neck: Yes normal visual inspection Chest: Chest palpation & inspection: normal inspection of the chest Resp: Effort & Inspection: normal respiratory effort Auscultation: clear to auscultation bilaterally Cardio: Palpation: normal PMI Rate: regular rate Rhythm: regular rhythm Heart sounds: S1 normal heart sound present, S2 normal heart sound present and no murmurs GI: Palpation (GI): Soft to palpation, nontender and No hepatosplenomegaly present Auscultation: normal bowel sounds Rectal Exam - Male: Yes deferred Skin: General skin exam: no rashes or lesions noted Neuro: General: patient oriented x3, gait normal and moves all extremities Cranial nerves: Yes Equal, round and reactive pupils present Psych: Appearance: grossly normal Mental Status: mental status grossly normal Results Labs 07/21/25 04:58 07/21/25 04:58 Labs: Short CBC 07/20/25 07/20/25 07/21/25 Range/Units 16:14 20:36 00:58 WBC 6.0 5.5 6.6 (4.8-10.8) X10*3/uL Hgb 4.3 L* 4.7 L* 5.9 L* D (14.0-18.0) g/dl Hct 14.0 L* 15.2 L* 18.9 L* D (42.0-52.0) % Plt Count 169 132 L 140 L (160-400) X10*3/uL 07/21/25 Range/Units 04:58 WBC 7.3 (4.8-10.8) X10*3/uL Hgb 7.0 L* (14.0-18.0) g/dl Hct 21.8 L (42.0-52.0) % Plt Count 146 L (160-400) X10*3/uL BMP 07/20/25 07/21/25 16:14 04:58 Sodium 144 143 Potassium 3.9 4.2 Chloride 116 H 118 H Carbon Dioxide 21 L 20 L BUN 22 H 20 H Creatinine 1.53 H 1.24 Calcium 8.2 L 8.1 L Liver Function 07/20/25 Range/Units 16:14 Total Bilirubin 0.1 (0.0-1.0) mg/dL AST 23 (5-37) U/L ALT 16 (0-40) U/L Alkaline Phosphatase 35 L (39-117) U/L Albumin 4.0 (3.5-5.0) g/dL Urine 07/20/25 Range/Units 17:06 Urine Color Yellow Urine Appearance Clear Urine pH 7.0 (5.0-9.0) Ur Specific [place] 1.015 (1.005-1.025) Urine Protein Negative (Neg-Trace) mg/dL Urine Glucose (UA) Negative (Negative) mg/dL Assessment and Plan (1) Bright red rectal bleeding: Status: Acute (2) Anemia requiring transfusions: Status: Acute Plan 70 YM with intellectual disability, HLD, schizophrenia, anxiety, T2DM s/p right toe amputation, HTN and OAB admitted to [facility] on 07/[place] after a fall and altered mental status. Pt was found to be profoundly anemic (H & H of 4.3 & 14) and have active bright red rectal bleeding on exam in the ED. He then reported rectal bleeding with BMs for the past month. H& H improved to 7 & 21 after 3 Units PRBC. Pt is receiving 4th unit of PRBC. Abd CT scan showed hyperdense material within the rectum likely represents hematoma. No true arterial phase was able to be obtained during the CT to evaluate for an active arterial bleed. LGI bleeding with severe anemia likely from large colon polyp or mass, AVM. Less likely to be from diverticulosis given prolonged course. RECOMMENDATIONS: 1. Check CBC 1 hour post blood transfusion and then Q 12 hrly x 24 hrs 2. Agree with IV PPI and anti-emetics 3. Clear liquid diet and GoLYTELY prep today for colonoscopy tomorrow. Procedures Date of Service Date of Service: 07/21/25
[2025-07-21 07:43] LABS: Iron 13 mcg/dL (45-160); Percent Iron Saturation 4 % (15-50); Total Iron Binding Capacity 323 mcg/dL (228-428); Unsaturated Iron Binding 310 ug/dL
[2025-07-21 07:56] LABS: Ferritin 6 ng/mL (20-250)
--- NOTE | 2025-07-21 07:56 | PC.NURSE ---
Dr Townsend to bedside for eval/plan. Pt request for colonoscopy tomorrow instead of today at noon. Will initiate prep today. Pharmacy notified and will bring prep when available. Pt is alert/oriented. Denies pain with rest but reports some tenderness to abd with palpation. Able to make needs known. NSR on tele. RBC infusing at this time. Skin pale, warm and dry. Speaking full sentences.
--- NOTE | 2025-07-21 08:50 | P.PNIM_ITS ---
Subjective Subjective Date of Service: 07/21/25 Interval History: No new complaints Physical Exam 2 Exam: Exam: General: AO X 3, no acute distress, pallor Resp: CTA bilateral, no accessory muscles used CVS: S1,S2,RRR GI: soft, non tender, non distended Neuro: motor grossly intact, alert Psych: appropriate affect, poor insight Vital Signs: Vital Signs: Last Vital Signs Temp 98.4 F 07/21/25 06:48 Pulse 75 07/21/25 07:47 Resp 16 07/21/25 07:47 BP 124/66 07/21/25 07:47 Pulse Ox 100 07/21/25 07:47 O2 Del Method Room Air 07/21/25 07:47 BMI result Body Mass Index 24.8 Objective Data Active Medications Acetaminophen (Acetaminophen 325 Mg Tablet) 975 mg PO Q6H PRN PRN Reason: Pain, Mild 1-3,fever,headache Calcium Carbonate (Calcium Carbonate 750 Mg Tab.Chew) 750 mg PO Q4H PRN PRN Reason: Heartburn Magnesium Hydroxide (Milk Of Magnesia 30 Ml Oral.Susp) 30 ml PO DAILY PRN PRN Reason: Constipation Melatonin (Melatonin 3 Mg Tablet) 6 mg PO BEDTIME PRN PRN Reason: Insomnia Ondansetron HCl (Ondansetron Hcl 4 Mg/2 Ml Vial) 4 mg IVPUSH Q8H PRN PRN Reason: Nausea and Vomiting Oxycodone HCl (Oxycodone Hcl Immed Release 5 Mg Tablet) 5 mg PO Q6H PRN PRN Reason: Pain, Severe (Pain Scale 7-10) Pantoprazole Sodium (Pantoprazole Sodium 40 Mg/10 Ml Vial) 40 mg IVPUSH BID@0630,1630 [facility] Last Admin: 07/21/25 06:56 Dose: 40 mg Documented By: SADIE Sodium Chloride (0.9 % Sodium Chloride Flush 3 Ml Syringe) 3 ml IVFLUSH QSHIFT [facility] Last Admin: 07/21/25 07:47 Dose: 3 ml Documented By: MIKEL Tramadol HCl (Tramadol Hcl 50 Mg Tablet) 50 mg PO Q6H PRN PRN Reason: Pain, Moderate(Pain Scale 4-6) Labs 07/21/25 04:58 07/21/25 04:58 Labs: Laboratory Results - last 24 hr 07/20/25 07/20/2525 16:14 17:00 17:06 MCV 83.3 MCH 25.6 L MCHC 30.7 L RDW 15.1 Plt Count 169 MPV 11.4 Immature Gran % (Auto) 0.8 H Neut % (Auto) 79.1 H Lymph % (Auto) 13.1 L [place] % (Auto) 6.8 Eos % (Auto) 0.0 Baso % (Auto) 0.2 Lymph # (Auto) 0.8 L [place] # (Auto) 0.4 Eos # (Auto) 0.0 Baso # (Auto) 0.0 Abs Immat Gran (auto) 0.05 H Absolute Neuts (auto) 4.8 Absolute Nucleated RBC 0.000 Nucleated RBC % (auto) 0.0 PT INR Anion Gap 11 L Estim Creat Clear Calc 52.2 Estimated GFR 45 Random Glucose 119 H Estimat Average Glucose Hemoglobin A1c % Calcium 8.2 L Magnesium 2.1 Iron 13 L TIBC 323 % Saturation 4 L Unsat Iron Binding 310 Ferritin 6 L Total Bilirubin 0.1 AST 23 ALT 16 Alkaline Phosphatase 35 L Total Protein 5.9 L Albumin 4.0 Urine Color Yellow Urine Appearance Clear Urine pH 7.0 Ur Specific [place] 1.015 Urine Protein Negative Urine Glucose (UA) Negative Urine Ketones Negative Urine Blood Negative Urine Nitrite Negative Ur Leukocyte Esterase Trace H Urine RBC 0-2 Urine WBC 0-5 Ur Squamous Epith Cells 0-2 Urine Bacteria None Seen Hyaline Casts 0-2 Stool Occult Blood POSITIVE Influenza Type A (PCR) NEGATIVE Influenza Type B (PCR) NEGATIVE RSV RNA Qual (PCR) NEGATIVE SARS-CoV-2 RNA (RT-PCR) NEGATIVE Blood Type A Negative Antibody Screen NEGATIVE Crossmatch See Detail 07/20/25 07/21/25 07/21/25 20:36 00:58 04:58 MCV 85.9 87.9 88.3 MCH 26.6 L 27.4 28.3 MCHC 30.9 L 31.2 32.1 RDW 15.5 16.2 H 15.5 Plt Count 132 L 140 L 146 L MPV 11.2 11.6 11.4 Immature Gran % (Auto) 0.4 0.3 Neut % (Auto) 76.5 H 76.1 H Lymph % (Auto) 14.1 L 13.9 L [place] % (Auto) 8.8 9.4 Eos % (Auto) 0.0 0.0 Baso % (Auto) 0.2 0.3 Lymph # (Auto) 0.8 L 0.9 L [place] # (Auto) 0.5 0.6 Eos # (Auto) 0.0 0.0 Baso # (Auto) 0.0 0.0 Abs Immat Gran (auto) 0.02 0.02 Absolute Neuts (auto) 4.2 5.0 Absolute Nucleated RBC 0.000 0.000 0.000 Nucleated RBC % (auto) 0.0 0.0 0.0 PT 14.1 H INR 1.2 H Anion Gap 9 L Estim Creat Clear Calc 64.4 Estimated GFR 58 Random Glucose 106 Estimat Average Glucose TNP Hemoglobin A1c % TNP Calcium 8.1 L Magnesium Iron TIBC % Saturation Unsat Iron Binding Ferritin Total Bilirubin AST ALT Alkaline Phosphatase Total Protein Albumin Urine Color Urine Appearance Urine pH Ur Specific [place] Urine Protein Urine Glucose (UA) Urine Ketones Urine Blood Urine Nitrite Ur Leukocyte Esterase Urine RBC Urine WBC Ur Squamous Epith Cells Urine Bacteria Hyaline Casts Stool Occult Blood Influenza Type A (PCR) Influenza Type B (PCR) RSV RNA Qual (PCR) SARS-CoV-2 RNA (RT-PCR) Blood Type Antibody Screen Crossmatch Assessment and Plan (1) Schizophrenia: Status: Acute Plan 70M PMH intellectual disability, hyperlipidemia, schizophrenia, anxiety, diabetes status post right toe amputation, hypertension presented with fall, bright red blood per rectum, found to have severe anemia Acute on chronic blood loss anemia with bright red blood per rectum Hemoglobin improved after 3 units from 4.3 to 7 Plan for colonoscopy 07/22/2025 Monitor hemoglobin Continue PPI Right hydronephrosis due to obstructing stone Appears asymptomatic, monitor Acute kidney injury Due to hypoperfusion from anemia Monitored Schizophrenia Olanzapine Diabetes Insulin sliding scale DVT prophylaxis-mechanical due to severe anemia and bright red blood per rectum DNR/DNI reason for continued hospitalization: Working up GI bleed Quality Stroke Does the patient have a stroke diagnosis?: No VTE Prior VTE?: No VTE Risk Level:: Medical - moderate - high VTE Device Contraindication: N/A - Device Ordered VTE Drug Contraindication: Treatment Not Indicated
--- NOTE | 2025-07-21 08:51 | PM.UROCN ---
History of Present Illness Consult details Consult date: 07/21/25 Narrative: CC: Distal right ureteric stone 70-year-old male with past medical history significant for intellectual disability, schizophrenia, anxiety, type 2 diabetes. Admission through emergency room following fall and altered mental status During evaluation in emergency room a found to be profoundly anemic. Active bright red rectal bleeding on exam. Did report rectal bleeding for past month. No associated nausea or abdominal pain. Incidental finding on CT scan with 6 mm obstructing distal right ureteric stone. Bladder also shows calcium layering. Creatinine at evaluation 1.2 although baseline is unknown. BMI 24. CT scan - Moderate right hydroureteronephrosis secondary to a 6 mm stone in the distal right ureter. Multiple layering stones in the bladder. Has been admitted for transfusion and further investigation Would recommend stone intervention with minimum stent placement. Given creatinine 1.2 would suggest completing blood transfusion and colonoscopy prior. Review of Systems Constitutional: Constitutional: Reports as per HPI and Reports no additional constitutional complaints Cardiovascular: Cardiovascular: Reports as per HPI and Reports no additional cardiovascular complaints Respiratory: Respiratory: Reports as per HPI and Reports no additional respiratory complaints Gastrointestinal: Gastrointestinal: Reports as per HPI and Reports no additional gastrointestinal complaints Genitourinary: Genitourinary: Reports as per HPI Musculoskeletal: Musculoskeletal: Reports no additional musculoskeletal complaints and Reports as per HPI Neurologic: Reports system reviewed and no additional complaints, except as documented and Reports as per HPI PMFSH Past Medical History Medical History (Updated 07/20/25 @ 21:19 by Milena Atkinson PA-C) OAB (overactive bladder) HTN (hypertension) Type 2 diabetes mellitus without complications Anxiety Schizophrenia HLD (hyperlipidemia) Intellectual disability Surgical History Surgical History (Updated 07/20/25 @ 21:18 by Milena Atkinson PA-C) Status post amputation of toe of right foot Social History Social History Smoked in Last 30 Days: No Use of substances other than those prescribed or required for medical reasons: No Advance Directives: No Advance Directives Information Provided: Yes Meds Allergies Allergy/AdvReac Type Severity Reaction Status Date / Time fluphenazine (From PROLIXIN) Allergy Severe SEIZURES Verified 07/20/25 14:58 proxlin AdvReac Unknown seizures Uncoded 07/20/25 14:58 Active Medications: Current Medications Acetaminophen (Acetaminophen 325 Mg Tablet) 975 mg PO Q6H PRN PRN Reason: Pain, Mild 1-3,fever,headache Calcium Carbonate (Calcium Carbonate 750 Mg Tab.Chew) 750 mg PO Q4H PRN PRN Reason: Heartburn Magnesium Hydroxide (Milk Of Magnesia 30 Ml Oral.Susp) 30 ml PO DAILY PRN PRN Reason: Constipation Melatonin (Melatonin 3 Mg Tablet) 6 mg PO BEDTIME PRN PRN Reason: Insomnia Ondansetron HCl (Ondansetron Hcl 4 Mg/2 Ml Vial) 4 mg IVPUSH Q8H PRN PRN Reason: Nausea and Vomiting Oxycodone HCl (Oxycodone Hcl Immed Release 5 Mg Tablet) 5 mg PO Q6H PRN PRN Reason: Pain, Severe (Pain Scale 7-10) Pantoprazole Sodium (Pantoprazole Sodium 40 Mg/10 Ml Vial) 40 mg IVPUSH BID@0630,1630 [facility] Last Admin: 07/21/25 06:56 Dose: 40 mg Sodium Chloride (0.9 % Sodium Chloride Flush 3 Ml Syringe) 3 ml IVFLUSH QSHIFT [facility] Last Admin: 07/21/25 07:47 Dose: 3 ml Tramadol HCl (Tramadol Hcl 50 Mg Tablet) 50 mg PO Q6H PRN PRN Reason: Pain, Moderate(Pain Scale 4-6) Physical Exam Vital Signs: Vital Signs: Last Vital Signs Temp 98.4 F 07/21/25 06:48 Pulse 75 07/21/25 07:47 Resp 16 07/21/25 07:47 BP 124/66 07/21/25 07:47 Pulse Ox 100 07/21/25 07:47 O2 Del Method Room Air 07/21/25 07:47 BMI result Body Mass Index 24.8 Const: General: cooperative, healthy appearing, comfortable and no acute distress Orientation/consciousness: patient oriented x3 HEENT: Face and sinus: Yes normal facial exam Mouth: moist mucous membranes Neck: Neck: Yes normal visual inspection, Yes full ROM and Yes trachea midline Chest: Chest palpation & inspection: normal inspection of the chest Resp: Effort & Inspection: normal respiratory effort, able to speak in complete sentences and no respiratory distress GI: Inspection: Yes normal to inspection Back/Spine/Pelvis: Cervical Spine: normal cervical lordosis Thoracic/Lumbar Spine: thoracic and lumbar spine normal to inspection Skin: General skin exam: no rashes or lesions noted Neuro: General: patient oriented x3, tone normal and moves all extremities Extrem: General: Yes normal to inspection and Yes capillary refill normal Results Labs 07/21/25 04:58 07/21/25 04:58 Labs: Abnormal lab results 07/20/25 07/20/25 07/20/25 Range/Units 16:14 17:00 17:06 RBC 1.68 L (4.60-5.80) X10*6/uL Hgb 4.3 L* (14.0-18.0) g/dl Hct 14.0 L* (42.0-52.0) % MCH 25.6 L (27.0-33.0) pg MCHC 30.7 L (31.0-36.0) g/dl RDW (11.0-16.0) % Plt Count (160-400) X10*3/uL Immature Gran % (Auto) 0.8 H (0.0-0.4) % Neut % (Auto) 79.1 H (45-73) % Lymph % (Auto) 13.1 L (20-40) % Lymph # (Auto) 0.8 L (1.2-4.9) X10*3/uL Abs Immat Gran (auto) 0.05 H (0.00-0.03) X10*3/uL PT (11.2-13.5) SEC INR (0.9-1.1) Chloride 116 H (96-108) mmol/L Carbon Dioxide 21 L (22-29) mmol/L Anion Gap 11 L (12-20) BUN 22 H (9-16) mg/dL Creatinine 1.53 H (0.5-1.4) mg/dL Random Glucose 119 H (60-115) mg/dL Calcium 8.2 L (8.4-10.2) mg/dL Iron 13 L (45-160) mcg/dL % Saturation 4 L (15-50) % Ferritin 6 L (20-250) ng/mL Alkaline Phosphatase 35 L (39-117) U/L Total Protein 5.9 L (6.5-8.0) g/dL Ur Leukocyte Esterase Trace H (Negative) Crossmatch See Detail 07/20/25 07/21/25 07/21/25 Range/Units 20:36 00:58 04:58 RBC 1.77 L 2.15 L D 2.47 L (4.60-5.80) X10*6/uL Hgb 4.7 L* 5.9 L* D 7.0 L* (14.0-18.0) g/dl Hct 15.2 L* 18.9 L* D 21.8 L (42.0-52.0) % MCH 26.6 L (27.0-33.0) pg MCHC 30.9 L (31.0-36.0) g/dl RDW 16.2 H (11.0-16.0) % Plt Count 132 L 140 L 146 L (160-400) X10*3/uL Immature Gran % (Auto) (0.0-0.4) % Neut % (Auto) 76.5 H 76.1 H (45-73) % Lymph % (Auto) 14.1 L 13.9 L (20-40) % Lymph # (Auto) 0.8 L 0.9 L (1.2-4.9) X10*3/uL Abs Immat Gran (auto) (0.00-0.03) X10*3/uL PT 14.1 H (11.2-13.5) SEC INR 1.2 H (0.9-1.1) Chloride 118 H (96-108) mmol/L Carbon Dioxide 20 L (22-29) mmol/L Anion Gap 9 L (12-20) BUN 20 H (9-16) mg/dL Creatinine (0.5-1.4) mg/dL Random Glucose (60-115) mg/dL Calcium 8.1 L (8.4-10.2) mg/dL Iron (45-160) mcg/dL % Saturation (15-50) % Ferritin (20-250) ng/mL Alkaline Phosphatase (39-117) U/L Total Protein (6.5-8.0) g/dL Ur Leukocyte Esterase (Negative) Crossmatch Short CBC 07/20/25 07/20/25 07/21/25 Range/Units 16:14 20:36 00:58 WBC 6.0 5.5 6.6 (4.8-10.8) X10*3/uL Hgb 4.3 L* 4.7 L* 5.9 L* D (14.0-18.0) g/dl Hct 14.0 L* 15.2 L* 18.9 L* D (42.0-52.0) % Plt Count 169 132 L 140 L (160-400) X10*3/uL 07/21/25 Range/Units 04:58 WBC 7.3 (4.8-10.8) X10*3/uL Hgb 7.0 L* (14.0-18.0) g/dl Hct 21.8 L (42.0-52.0) % Plt Count 146 L (160-400) X10*3/uL BMP 07/20/25 07/21/25 16:14 04:58 Sodium 144 143 Potassium 3.9 4.2 Chloride 116 H 118 H Carbon Dioxide 21 L 20 L BUN 22 H 20 H Creatinine 1.53 H 1.24 Calcium 8.2 L 8.1 L Liver Function 07/20/25 Range/Units 16:14 Total Bilirubin 0.1 (0.0-1.0) mg/dL AST 23 (5-37) U/L ALT 16 (0-40) U/L Alkaline Phosphatase 35 L (39-117) U/L Albumin 4.0 (3.5-5.0) g/dL Urine 07/20/25 Range/Units 17:06 Urine Color Yellow Urine Appearance Clear Urine pH 7.0 (5.0-9.0) Ur Specific [place] 1.015 (1.005-1.025) Urine Protein Negative (Neg-Trace) mg/dL Urine Glucose (UA) Negative (Negative) mg/dL All other labs normal. Assessment and Plan (1) Hydroureteronephrosis: Status: Acute Plan Cystoscopy with right retrograde and stent placement following completion of GI evaluation and blood transfusion Procedures Date of Service Date of Service: 07/21/25
--- NOTE | 2025-07-21 09:07 | PC.NURSE ---
Repeat hemoglobin and hematocrit ordered, phelb called and made aware
--- NOTE | 2025-07-21 09:09 | PHA.MEDREC ---
Pharmacy Consult ? Medication Reconciliation Pharmacy has completed the medication reconciliation.UTILIZED CLAIM HISTORY AND LSIT FROM [facility]
[2025-07-21 09:50] LABS: Hematocrit 23.3 % (42.0-52.0); Hemoglobin 7.5 g/dl (14.0-18.0)
[2025-07-21] MEDS: PEG 3350/Na Sulf,Bicarb,Cl/KCL 4,000 ML SOLN.RECON 4000 ML PO (12:46)
--- NOTE | 2025-07-21 12:53 | HO.ANESPROP2 ---
Documented by User: Kaylin Blanca NP 07/22/25 07:47 HPI - Anesthesia Eval Consult details Narrative: 70 yr old male for colonoscopy *DNR/DNI Acute anemia 2/2 rectal bleeding: came to [facility] ED 07/20/25 after fall, H/H 4.3/14.0; s/p 4 units PRBCs; labs 07/22: H/H 7.9/24.1, platelets 141 Intellectual disability PMF Active Problems Active Problems: All Active Problems MIGUEL (acute kidney injury) (Acute) OAB (overactive bladder) (Acute) HTN (hypertension) (Acute) Status post amputation of toe of right foot (Acute) Type 2 diabetes mellitus without complications (Acute) Anxiety (Acute) Schizophrenia (Acute) HLD (hyperlipidemia) (Acute) Intellectual disability (Acute) ABLA (acute blood loss anemia) (Acute) Hydroureteronephrosis (Acute) Anemia requiring transfusions (Acute) Bright red rectal bleeding (Acute) Past Medical History Medical History OAB (overactive bladder) HTN (hypertension) Type 2 diabetes mellitus without complications Anxiety Schizophrenia HLD (hyperlipidemia) Intellectual disability Functional capacity: independent ambulation Surgical History Surgical History Hx of cholecystectomy Status post amputation of toe of right foot Social History Social History Household Members: Other Household Members Other:: [facility] Housing: Snf Housing Other:: [facility] Patient Tobacco Use Status: Never used Tobacco service: No Meds Allergies Allergy/AdvReac Type Severity Reaction Status Date / Time fluphenazine (From PROLIXIN) Allergy Severe SEIZURES Verified 07/20/25 14:58 proxlin AdvReac Unknown seizures Uncoded 07/20/25 14:58 Active Medications: Current Medications Acetaminophen (Acetaminophen 325 Mg Tablet) 975 mg PO Q6H PRN PRN Reason: Pain, Mild 1-3,fever,headache Calcium Carbonate (Calcium Carbonate 750 Mg Tab.Chew) 750 mg PO Q4H PRN PRN Reason: Heartburn Fenofibrate (Fenofibrate 54 Mg Tablet) 54 mg PO DAILY [facility] Magnesium Hydroxide (Milk Of Magnesia 30 Ml Oral.Susp) 30 ml PO DAILY PRN PRN Reason: Constipation Melatonin (Melatonin 3 Mg Tablet) 6 mg PO BEDTIME PRN PRN Reason: Insomnia Olanzapine (Olanzapine 10 Mg Tablet) 20 mg PO BEDTIME [facility] Ondansetron HCl (Ondansetron Hcl 4 Mg/2 Ml Vial) 4 mg IVPUSH Q8H PRN PRN Reason: Nausea and Vomiting Oxycodone HCl (Oxycodone Hcl Immed Release 5 Mg Tablet) 5 mg PO Q6H PRN PRN Reason: Pain, Severe (Pain Scale 7-10) Pantoprazole Sodium (Pantoprazole Sodium 40 Mg/10 Ml Vial) 40 mg IVPUSH BID@0630,1630 [facility] Last Admin: 07/21/25 06:56 Dose: 40 mg Pravastatin Sodium (Pravastatin Sodium 40 Mg Tablet) 40 mg PO DAILY [facility] Sertraline HCl (Sertraline Hcl 100 Mg Tablet) 100 mg PO DAILY [facility] Sertraline HCl (Sertraline Hcl 25 Mg Tablet) 25 mg PO DAILY [facility] Sodium Chloride (0.9 % Sodium Chloride Flush 3 Ml Syringe) 3 ml IVFLUSH QSHIFT [facility] Last Admin: 07/21/25 07:47 Dose: 3 ml Tramadol HCl (Tramadol Hcl 50 Mg Tablet) 50 mg PO Q6H PRN PRN Reason: Pain, Moderate(Pain Scale 4-6) Home Medications ?Medication ?Instructions ?Recorded ?Confirmed ?Last Taken ?Type acetaminophen 500 mg tablet 500 mg PO Q6H PRN Pain 07/21/25 07/21/25 Unknown History aluminum-mag hydroxide-simethicone 30 ml PO Q4H PRN GI DISTRESS 07/21/25 07/21/25 Unknown History 200 mg-200 mg-20 mg/5 mL oral susp aspirin 81 mg tablet,delayed 81 mg PO DAILY 07/21/25 07/21/25 Unknown History release fenofibrate 54 mg tablet 54 mg PO DAILY 07/21/25 07/21/25 Unknown History icosapent ethyl 1 gram capsule 1 g PO DAILY 07/21/25 07/21/25 Unknown History (Vascepa) lisinopril 5 mg tablet 5 mg PO DAILY 07/21/25 07/21/25 Unknown History loperamide 2 mg tablet 2 mg PO Q4H PRN Diarrhea 07/21/25 07/21/25 Unknown History lovastatin 40 mg tablet 40 mg PO DAILY 07/21/25 07/21/25 Unknown History magnesium hydroxide 400 mg/5 mL 30 ml PO DAILY PRN Constipation 07/21/25 07/21/25 Unknown History oral suspension (Milk of Magnesia) olanzapine 20 mg tablet 20 mg PO BEDTIME 07/21/25 07/21/25 Unknown History oxybutynin chloride 5 mg tablet 5 mg PO BID 07/21/25 07/21/25 Unknown History sertraline 100 mg tablet 100 mg PO DAILY 07/21/25 07/21/25 Unknown History sertraline 50 mg tablet 25 mg PO DAILY 07/21/25 07/21/25 Unknown History Exam Height,Weight and Vital Signs: Height 6 ft 2 in Weight 87.7 kg Last Vital Signs Temp 98.6 F 07/21/25 09:09 Pulse 68 07/21/25 09:09 Resp 14 07/21/25 09:09 BP 114/64 07/21/25 09:09 Pulse Ox 100 07/21/25 08:55 O2 Del Method Room Air 07/21/25 08:55 Pertinent Lab Results Pertinent Lab Results: Laboratory Tests 07/20/25 07/20/25 07/20/25 16:14 17:00 17:06 WBC 6.0 RBC 1.68 L Hgb 4.3 L* Hct 14.0 L* MCV 83.3 MCH 25.6 L MCHC 30.7 L RDW 15.1 Plt Count 169 MPV 11.4 Immature Gran % (Auto) 0.8 H Neut % (Auto) 79.1 H Lymph % (Auto) 13.1 L Mcdonough % (Auto) 6.8 Eos % (Auto) 0.0 Baso % (Auto) 0.2 Lymph # (Auto) 0.8 L Mcdonough # (Auto) 0.4 Eos # (Auto) 0.0 Baso # (Auto) 0.0 Abs Immat Gran (auto) 0.05 H Absolute Neuts (auto) 4.8 Absolute Nucleated RBC 0.000 Nucleated RBC % (auto) 0.0 Smear Path Review SEE NOTE PT INR Sodium 144 Potassium 3.9 Chloride 116 H Carbon Dioxide 21 L Anion Gap 11 L BUN 22 H Creatinine 1.53 H Estim Creat Clear Calc 52.2 Estimated GFR 45 Random Glucose 119 H Estimat Average Glucose Hemoglobin A1c % Calcium 8.2 L Magnesium 2.1 Iron 13 L TIBC 323 % Saturation 4 L Unsat Iron Binding 310 Ferritin 6 L Total Bilirubin 0.1 AST 23 ALT 16 Alkaline Phosphatase 35 L Total Protein 5.9 L Albumin 4.0 Urine Color Yellow Urine Appearance Clear Urine pH 7.0 Ur Specific [place] 1.015 Urine Protein Negative Urine Glucose (UA) Negative Urine Ketones Negative Urine Blood Negative Urine Nitrite Negative Ur Leukocyte Esterase Trace H Urine RBC 0-2 Urine WBC 0-5 Ur Squamous Epith Cells 0-2 Urine Bacteria None Seen Hyaline Casts 0-2 Stool Occult Blood POSITIVE Influenza Type A (PCR) NEGATIVE Influenza Type B (PCR) NEGATIVE RSV RNA Qual (PCR) NEGATIVE SARS-CoV-2 RNA (RT-PCR) NEGATIVE Blood Type A Negative Antibody Screen NEGATIVE Crossmatch See Detail 07/20/25 07/21/25 07/21/25 20:36 00:58 04:58 WBC 5.5 6.6 7.3 RBC 1.77 L 2.15 L D 2.47 L Hgb 4.7 L* 5.9 L* D 7.0 L* Hct 15.2 L* 18.9 L* D 21.8 L MCV 85.9 87.9 88.3 MCH 26.6 L 27.4 28.3 MCHC 30.9 L 31.2 32.1 RDW 15.5 16.2 H 15.5 Plt Count 132 L 140 L 146 L MPV 11.2 11.6 11.4 Immature Gran % (Auto) 0.4 0.3 Neut % (Auto) 76.5 H 76.1 H Lymph % (Auto) 14.1 L 13.9 L Mcdonough % (Auto) 8.8 9.4 Eos % (Auto) 0.0 0.0 Baso % (Auto) 0.2 0.3 Lymph # (Auto) 0.8 L 0.9 L Mcdonough # (Auto) 0.5 0.6 Eos # (Auto) 0.0 0.0 Baso # (Auto) 0.0 0.0 Abs Immat Gran (auto) 0.02 0.02 Absolute Neuts (auto) 4.2 5.0 Absolute Nucleated RBC 0.000 0.000 0.000 Nucleated RBC % (auto) 0.0 0.0 0.0 Smear Path Review PT 14.1 H INR 1.2 H Sodium 143 Potassium 4.2 Chloride 118 H Carbon Dioxide 20 L Anion Gap 9 L BUN 20 H Creatinine 1.24 Estim Creat Clear Calc 64.4 Estimated GFR 58 Random Glucose 106 Estimat Average Glucose TNP Hemoglobin A1c % TNP Calcium 8.1 L Magnesium Iron TIBC % Saturation Unsat Iron Binding Ferritin Total Bilirubin AST ALT Alkaline Phosphatase Total Protein Albumin Urine Color Urine Appearance Urine pH Ur Specific [place] Urine Protein Urine Glucose (UA) Urine Ketones Urine Blood Urine Nitrite Ur Leukocyte Esterase Urine RBC Urine WBC Ur Squamous Epith Cells Urine Bacteria Hyaline Casts Stool Occult Blood Influenza Type A (PCR) Influenza Type B (PCR) RSV RNA Qual (PCR) SARS-CoV-2 RNA (RT-PCR) Blood Type Antibody Screen Crossmatch 07/21/25 09:33 WBC RBC Hgb 7.5 L Hct 23.3 L MCV MCH MCHC RDW Plt Count MPV Immature Gran % (Auto) Neut % (Auto) Lymph % (Auto) Mcdonough % (Auto) Eos % (Auto) Baso % (Auto) Lymph # (Auto) Mcdonough # (Auto) Eos # (Auto) Baso # (Auto) Abs Immat Gran (auto) Absolute Neuts (auto) Absolute Nucleated RBC Nucleated RBC % (auto) Smear Path Review PT INR Sodium Potassium Chloride Carbon Dioxide Anion Gap BUN Creatinine Estim Creat Clear Calc Estimated GFR Random Glucose Estimat Average Glucose Hemoglobin A1c % Calcium Magnesium Iron TIBC % Saturation Unsat Iron Binding Ferritin Total Bilirubin AST ALT Alkaline Phosphatase Total Protein Albumin Urine Color Urine Appearance Urine pH Ur Specific [place] Urine Protein Urine Glucose (UA) Urine Ketones Urine Blood Urine Nitrite Ur Leukocyte Esterase Urine RBC Urine WBC Ur Squamous Epith Cells Urine Bacteria Hyaline Casts Stool Occult Blood Influenza Type A (PCR) Influenza Type B (PCR) RSV RNA Qual (PCR) SARS-CoV-2 RNA (RT-PCR) Blood Type Antibody Screen Crossmatch Narrative Narrative: EKG 07/20/25 Vent. Rate : 89 BPM Atrial Rate : 89 BPM P-R Int : 140 ms QRS Dur : 96 ms QT Int : 368 ms P-R-T Axes : 50 27 43 degrees QTcB Int : 447 ms Normal sinus rhythm Normal ECG When compared with ECG of 19-Jan-2014 09:49, No significant change was found Documented by User: Arthur Palmer MD 07/22/25 12:24 [facility] Past Medical History Medical History OAB (overactive bladder) HTN (hypertension) Type 2 diabetes mellitus without complications Anxiety Schizophrenia HLD (hyperlipidemia) Intellectual disability Family History Family history of problems with anesthesia: No Surgical History Surgical History Hx of cholecystectomy Status post amputation of toe of right foot History of Problems with Anesthesia: No Social History Social History Household Members: Other Household Members Other:: [facility] Housing: Snf Housing Other:: [facility] Patient Tobacco Use Status: Never used Tobacco service: No Meds Allergies Allergy/AdvReac Type Severity Reaction Status Date / Time fluphenazine (From PROLIXIN) Allergy Severe SEIZURES Verified 07/20/25 14:58 proxlin AdvReac Unknown seizures Uncoded 07/20/25 14:58 Home Medications ?Medication ?Instructions ?Recorded ?Confirmed ?Last Taken ?Type acetaminophen 500 mg tablet 500 mg PO Q6H PRN Pain 07/21/25 07/21/25 Unknown History aluminum-mag hydroxide-simethicone 30 ml PO Q4H PRN GI DISTRESS 07/21/25 07/21/25 Unknown History 200 mg-200 mg-20 mg/5 mL oral susp aspirin 81 mg tablet,delayed 81 mg PO DAILY 07/21/25 07/21/25 Unknown History release fenofibrate 54 mg tablet 54 mg PO DAILY 07/21/25 07/21/25 Unknown History icosapent ethyl 1 gram capsule 1 g PO DAILY 07/21/25 07/21/25 Unknown History (Vascepa) lisinopril 5 mg tablet 5 mg PO DAILY 07/21/25 07/21/25 Unknown History loperamide 2 mg tablet 2 mg PO Q4H PRN Diarrhea 07/21/25 07/21/25 Unknown History lovastatin 40 mg tablet 40 mg PO DAILY 07/21/25 07/21/25 Unknown History magnesium hydroxide 400 mg/5 mL 30 ml PO DAILY PRN Constipation 07/21/25 07/21/25 Unknown History oral suspension (Milk of Magnesia) olanzapine 20 mg tablet 20 mg PO BEDTIME 07/21/25 07/21/25 Unknown History oxybutynin chloride 5 mg tablet 5 mg PO BID 07/21/25 07/21/25 Unknown History sertraline 100 mg tablet 100 mg PO DAILY 07/21/25 07/21/25 Unknown History sertraline 50 mg tablet 25 mg PO DAILY 07/21/25 07/21/25 Unknown History Exam Exam Date and Time: 07/22/2025 Airway Neck ROM: Full Loose/Missing/Broken Teeth: Yes (only 2 teeth remaining) Heart: normal Lungs: normal Other: normal Assessment and Plan Assessment Anesthesia Assessment: Anesthesia Plan Discussed and Chart Reviewed Final Anesthetic Review Family History of Problems with Anesthesia: No History of Problems with Anesthesia: No Final Preanesthetic Review: DNR Form (If Appl.) (suspended for the hospitalization . consent from sister) Patient Risk: Low Procedure Risk: Low Anesthetic Plan Anesthetic Plan: MAC: Disposition: Standard PACU
--- NOTE | 2025-07-21 12:54 | PC.NURSE ---
Colonoscopy prep started. Pt alert and oriented, tolerating well so far.
--- NOTE | 2025-07-21 13:52 | PC.NURSE ---
Pt had one bowel movement so far, bloody.
--- NOTE | 2025-07-21 17:17 | HO.NURTONUR ---
PER MD: pt is a 70 yo male with a pmhx significant for intellectual disability, HLD, schizophrenia, anxiety, T2DM s/p right toe amputation, HTN and OAB, who presented to the ED due to fall and altered mental status. the pt reportedly slid down the stairs and caught himself, no head strike. he has not been altered since arriving to the ED. the pt reports weakness and a fall 1 week ago as well. he did not mention rectal bleeding initially, but was found to be profoundly anemic and have active bright red rectal bleeding on exam in the ED. the pt then reported rectal bleeding with BMs for the past month. no abd pain, nausea or vomiting. PER RN: Alert and oriented but has some confusion and repetition (intellectual disability) 1 assist to commode or uses urinal in bed IV: 20 G in right AC, 20G in left AC. Nothing running right now Admit: Rectal hematoma, blood in stool, low H/H (received 4 units RBCs). GI consult. Kidney stone on right side Plan: Colonoscopy tomorrow, currently still drinking the prep (needs lots of encouragement), Went to bathroom twice, bloody stool. Plan for cysto and stent after colonoscopy No pain VSS
--- NOTE | 2025-07-21 17:58 | PC.NURSE ---
Pt reporting the prep is hard to drink large volume of, upsetting his stomach. Pt drinking slowly, needs lots of encouragement.
--- NOTE | 2025-07-21 18:28 | PC.NURSE ---
Pt medicated with zofran to help with nausea, still drinking prep slowly
[2025-07-22] VITALS (10 sets, daily range): BP systolic 99–137; BP diastolic 54–68; PULSE 64–93; RESP 14–20; TEMP 36–37.2; O2SAT 94–100
[2025-07-22 07:03] LABS: Hematocrit 24.1 % (42.0-52.0); Hemoglobin 7.9 g/dl (14.0-18.0); Mean Corpuscular HGB Conc 32.8 g/dl (31.0-36.0); Mean Corpuscular Hemoglobin 29.2 pg (27.0-33.0); Mean Corpuscular Volume 88.9 fL (80.0-98.0); NRBC Abs Auto 0.000 X10*3/uL (0.0-0.012); NRBC Pct Auto 0.0 /100WBC (0.0-0.2); Platelet Count 141 X10*3/uL (160-400); Red Blood Count 2.71 X10*6/uL (4.60-5.80); White Blood Count 4.7 X10*3/uL (4.8-10.8)
[2025-07-22 07:16] LABS: Anion Gap 11 (12-20); Blood Urea Nitrogen 17 mg/dL (9-16); Calcium 7.9 mg/dL (8.4-10.2); Carbon Dioxide 21 mmol/L (22-29); Chloride 116 mmol/L (96-108); Creatinine Clr Calc Pharmacy 80.7; Estimated Glomerular Filt Rate > 60; Potassium 3.8 mmol/L (3.3-5.1); Sodium 144 mmol/L (135-145)
[2025-07-22] MEDS: 0.9 % Sodium Chloride Flush 3 ML SYRINGE IVFLUSH ×3 (11:05→22:01)
--- NOTE | 2025-07-22 11:14 | P.PNIM_ITS ---
Subjective Subjective Date of Service: 07/22/25 Interval History: no further bleeding Physical Exam 2 Vital Signs: Vital Signs: Last Vital Signs Temp 96.8 F 07/22/25 07:56 Pulse 75 07/22/25 07:56 Resp 20 07/22/25 07:56 BP 105/56 L 07/22/25 07:56 Pulse Ox 96 07/22/25 07:56 O2 Del Method Room Air 07/22/25 07:56 BMI result Body Mass Index 24.8 Const: General: cooperative, healthy appearing, comfortable and no acute distress Orientation/consciousness: patient oriented x3 HEENT: Face and sinus: Yes normal facial exam Mouth: moist mucous membranes Neck: Neck: Yes normal visual inspection, Yes full ROM and Yes trachea midline Chest: Chest palpation & inspection: normal inspection of the chest Resp: Effort & Inspection: normal respiratory effort, able to speak in complete sentences and no respiratory distress GI: Inspection: Yes normal to inspection Back/Spine/Pelvis: Cervical Spine: normal cervical lordosis Thoracic/Lumbar Spine: thoracic and lumbar spine normal to inspection Skin: General skin exam: no rashes or lesions noted Neuro: General: patient oriented x3, tone normal and moves all extremities Extrem: General: Yes normal to inspection and Yes capillary refill normal Objective Data Active Medications Acetaminophen (Acetaminophen 325 Mg Tablet) 975 mg PO Q6H PRN PRN Reason: Pain, Mild 1-3,fever,headache Calcium Carbonate (Calcium Carbonate 750 Mg Tab.Chew) 750 mg PO Q4H PRN PRN Reason: Heartburn Fenofibrate (Fenofibrate 54 Mg Tablet) 54 mg PO DAILY [facility] Last Admin: 07/22/25 10:56 Dose: 54 mg Documented By: JAYJAY Magnesium Hydroxide (Milk Of Magnesia 30 Ml Oral.Susp) 30 ml PO DAILY PRN PRN Reason: Constipation Melatonin (Melatonin 3 Mg Tablet) 6 mg PO BEDTIME PRN PRN Reason: Insomnia Olanzapine (Olanzapine 10 Mg Tablet) 20 mg PO BEDTIME [facility] Last Admin: 07/21/25 22:50 Dose: 20 mg Documented By: IVELISSE Ondansetron HCl (Ondansetron Hcl 4 Mg/2 Ml Vial) 4 mg IVPUSH Q8H PRN PRN Reason: Nausea and Vomiting Last Admin: 07/21/25 18:10 Dose: 4 mg Documented By: RIMMA Oxycodone HCl (Oxycodone Hcl Immed Release 5 Mg Tablet) 5 mg PO Q6H PRN PRN Reason: Pain, Severe (Pain Scale 7-10) Pantoprazole Sodium (Pantoprazole Sodium 40 Mg/10 Ml Vial) 40 mg IVPUSH BID@0630,1630 [facility] Last Admin: 07/22/25 05:59 Dose: 40 mg Documented By: IVELISSE Pravastatin Sodium (Pravastatin Sodium 40 Mg Tablet) 40 mg PO DAILY [facility] Last Admin: 07/22/25 10:56 Dose: 40 mg Documented By: JAYJAY Sertraline HCl (Sertraline Hcl 100 Mg Tablet) 100 mg PO DAILY [facility] Last Admin: 07/22/25 10:56 Dose: 100 mg Documented By: JAYJAY Sertraline HCl (Sertraline Hcl 25 Mg Tablet) 25 mg PO DAILY [facility] Last Admin: 07/22/25 10:56 Dose: 25 mg Documented By: JAYJAY Sodium Biphosphate/Sodium Phosphate (Sodium Phosphate,[place]-Dibasic 133 Ml Enema) 133 ml HI ONCE PRN PRN Reason: Poor Colonoscopy Prep Results Last Admin: 07/22/25 10:59 Dose: 133 ml Documented By: JAYJAY Sodium Biphosphate/Sodium Phosphate (Sodium Phosphate,[place]-Dibasic 133 Ml Enema) 133 ml HI ONCE PRN PRN Reason: Poor Colonoscopy Prep Results Sodium Chloride (0.9 % Sodium Chloride Flush 3 Ml Syringe) 3 ml IVFLUSH QSHIFT [facility] Last Admin: 07/22/25 11:05 Dose: 3 ml Documented By: JAYJAY Tramadol HCl (Tramadol Hcl 50 Mg Tablet) 50 mg PO Q6H PRN PRN Reason: Pain, Moderate(Pain Scale 4-6) Labs 07/22/25 06:40 07/22/25 06:40 Labs: Laboratory Results - last 24 hr 07/22/25 06:40 MCV 88.9 MCH 29.2 MCHC 32.8 RDW 15.9 Plt Count 141 L MPV 11.2 Absolute Nucleated RBC 0.000 Nucleated RBC % (auto) 0.0 Anion Gap 11 L Estim Creat Clear Calc 80.7 Estimated GFR > 60 Random Glucose 92 Calcium 7.9 L Assessment and Plan (1) Schizophrenia: Status: Acute Plan 70M PMH intellectual disability, hyperlipidemia, schizophrenia, anxiety, diabetes status post right toe amputation, hypertension presented with fall, bright red blood per rectum, found to have severe anemia Acute on chronic blood loss anemia with bright red blood per rectum Hemoglobin improved after 3 units from 4.3 to 7, now 7.9 Plan for colonoscopy 07/22/2025 had no bleeding after prep Monitor hemoglobin Continue PPI Right hydronephrosis due to obstructing stone Appears asymptomatic, planning on eventual cysto Acute kidney injury Due to hypoperfusion from anemia Monitored Schizophrenia Olanzapine Diabetes Insulin sliding scale DVT prophylaxis-mechanical due to severe anemia and bright red blood per rectum DNR/DNI reason for continued hospitalization: Working up GI bleed Quality Stroke Does the patient have a stroke diagnosis?: No VTE Prior VTE?: No VTE Risk Level:: Medical - moderate - high VTE Device Contraindication: N/A - Device Ordered VTE Drug Contraindication: Treatment Not Indicated
--- NOTE | 2025-07-22 11:36 | MHC.CM.PN ---
IMM 07/22/25, Pt. lives at [facility], he said they assist him with personal care. HCP is his sister, Josi. Pt. said he does not use DME, or VNA services at this time. Transport home may be by his sister. DCP: home, resume rest home care. CM to follow for DC needs.
[2025-07-22] MEDS: Lactated Ringers 1,000 ML 50 ML IVCONT (12:04)
--- NOTE | 2025-07-22 12:14 | MHC.SHP ---
Pre-Procedural Eval Section A - 24 Hr Update-Section A only Date of Service: 07/22/25 The patient is an INPATIENT: Yes The patient has been examined within 24 hours of the surgical procedure. The History & Physical has been completed within 30 days and I have reviewed it.: Yes Section B - Complete if H&P > 30 days Chief Complaint: GI Bleed Allergies: Allergies Allergy/AdvReac Type Severity Reaction Status Date / Time fluphenazine (From PROLIXIN) Allergy Severe SEIZURES Verified 07/20/25 14:58 proxlin AdvReac Unknown seizures Uncoded 07/20/25 14:58 Plan Diagnosis/Plan: Unchanged I have reviewed the history and physical and performed a pertinent physical examination on my patient. No changes have occurred unless specified. Consent obtained over the phone with Josi (sister/legal guardian) as per pt's preference. Time Spent With Patient Time: Total time managing care of this patient today ____ minutes.
--- NOTE | 2025-07-22 12:15 | P.OPN-COLO_ITS ---
Colonoscopy Operative Note Operative Note Date of Service: 07/22/25 Narrative: Procedure: Colonoscopy Indication: Rectal bleeding Endoscopist: Martha Mott MD Anesthesia Provider: Dr Palmer Anesthesia type: MAC Instrument: Olympus [id number] Consent: Indication, risks vs benefits, and alternatives were discussed with the patient who gave written informed consent to proceed. EKG, pulse, pulse oximetry and blood pressure were monitored throughout the procedure. Please see anesthesia flowsheet. Procedure: The patient was brought to the procedure room and placed in the left lateral decubitus position. IV medications were administered by the anesthesia provider in attendance. A digital rectal exam was performed which was abnormal for nodular mass in the posterior rectum. A distal attachment cap was affixed to the tip of the colonoscope which was then inserted through the anus and adv anced through the colon to the cecum at 75 cm, and terminal ileum. Appendiceal orifice and ileocecal valve were identified. Mucosa was carefully examined under high definition white light as the instrument was slowly withdrawn in a retrograde panoramic fashion. Retroflexion was performed in rectum. The procedure was not difficult. There were no immediate obvious complications. The quality of the prep was BBPS: 1+1+2 = inadequate Withdrawal time 15 minutes. Limitations: Poor prep. Findings: Mucosa: Villous appearing friable and ulcerated mass with spontaneous bleeding extending from 3 cm to 13 cm from the anal verge. Nonobstructing, involving at least 1/3rd circumference. Mass does not appear to be arising from the dentate line. Cold forceps biopsies were taken for histology. Protruding lesions: * 1 sessile polyp of size 5 mm in ascending colon. Cold snare polypectomy was performed. The polyp was completely removed and retrieved. Additional intervention: At the end of the procedure, hemospray was applied to the bleeding mass to temporize the bleeding. Impression: 1. 10 cm bleeding, low lying rectal mass (biopsy, hemospray) 2. Additionally a polyp was removed as well 3.Internal hemorrhoids 4. Poor prep Recommendations: - Follow path results. - IV iron 200 mg once - Monitor H/H and transfuse to keep goal Hb 8. - Avoid MT interventions such as temps, suppositories, enema etc. - Surgery consult requested - Please keep the pt on clears for now until evaluated by surgery team - Sister updated over the phone. Of note- sister reports hx of breast ca in her 40s and is pos for BRCA gene. - Depending on overall clinical course, pt will need a completion colonoscopy within 6-12 months
--- NOTE | 2025-07-22 13:53 | P.CONGS_ITS ---
History of Present Illness Consult details Consult date: 07/22/25 <Eve Tong PA-C - Last Filed: 07/22/25 14:42> Requesting physician: Martha Mott <ELVER Hart Last Filed: 07/22/25 14:42> Narrative: 70 year old male with PMH significant for intellectual disability, HLD, schizophrenia, anxiety, T2DM, HTN and OAB who presented to the ED following a fall with altered mental status. In the ED he was found to be profoundly anemic with a Hgb of 4.3 and had active bright red rectal bleeding on exam. He was admitted to the hospitalist service for further work up and treatment of the acute blood loss anemia and LGIB. He has received 4U PRBC since admission now with a stable H/H of 7.9/24.1. CT scan on admission showed hyperdense material within the rectum, suggestive of hematoma. He was seen by GI and underwent colonoscopy today with Dr. Mott and was found to have a villous appearing friable and ulcerated mass with spontaneous bleeding extending from 3 cm to 13 cm from the anal verge, nonobstructing. Patient reports he has bleeding for maybe a year. He denies any abdominal pain. He has been tolerating a solid diet with good intake and has been passing flatus and moving his bowels normally at home prior to presentation. He is a somewhat of a poor historian and history is obtained from him as well as the EMR. He reports his grandmother has a history of colon CA. His sister has a history of breast CA and tested positive for BRCA. He has a history of laparoscopic cholecystectomy and right toe amputation. <ELVER Hart Last Filed: 07/22/25 14:42> Review of Systems 2 Constitutional: Constitutional: Denies chills, Denies fever(s) and Denies malaise <ELVER Hart Last Filed: 07/22/25 14:42> ENT: Denies dizziness <ELVER Hart Last Filed: 07/22/25 14:42> Cardiovascular: Cardiovascular: Denies chest pain and Denies dyspnea < ELVER Hart Last Filed: 07/22/25 14:42> Respiratory: Respiratory: Denies dyspnea <Eve Tong PA-C Last Filed: 07/22/25 14:42> Gastrointestinal: Gastrointestinal: Reports as per HPI <Eve Tong PA-C Last Filed: 07/22/25 14:42> Integumentary/Breasts: Skin/Breast: Denies rash <ELVER Hart Last Filed: 07/22/25 14:42> Neurologic: Denies dizziness <Eve Tong PA-C Last Filed: 07/22/25 14:42> [facility] Past Medical History Medical History: Medical History OAB (overactive bladder) HTN (hypertension) Type 2 diabetes mellitus without complications Anxiety Schizophrenia HLD (hyperlipidemia) Intellectual disability <Eve Tong PA-C Last Filed: 07/22/25 14:42> Surgical History Surgical History: Surgical History Hx of cholecystectomy Status post amputation of toe of right foot <ELVER Hart Last Filed: 07/22/25 14:42> Social History Social History: Social History Household Members: Other Household Members Other:: [facility] Housing: Senior Living Housing Other:: [facility] Patient Tobacco Use Status: Never used Tobacco service: No <Eve Tong PA-C Last Filed: 07/22/25 14:42> Meds Allergies/Adverse reactions: Allergies Allergy/AdvReac Type Severity Reaction Status Date / Time fluphenazine (From PROLIXIN) Allergy Severe SEIZURES Verified 07/20/25 14:58 proxlin AdvReac Unknown seizures Uncoded 07/20/25 14:58 <ELVER Hart Last Filed: 07/22/25 14:42> Active Medications: Current Medications Acetaminophen (Acetaminophen 325 Mg Tablet) 975 mg PO Q6H PRN PRN Reason: Pain, Mild 1-3,fever,headache Calcium Carbonate (Calcium Carbonate 750 Mg Tab.Chew) 750 mg PO Q4H PRN PRN Reason: Heartburn Fenofibrate (Fenofibrate 54 Mg Tablet) 54 mg PO DAILY [facility] Last Admin: 07/22/25 10:56 Dose: 54 mg Lactated Ringer's (Lr) 1,000 mls @ 50 mls/hr IVCONT .Q20H [facility] Last Admin: 07/22/25 12:04 Dose: 50 mls/hr Magnesium Hydroxide (Milk Of Magnesia 30 Ml Oral.Susp) 30 ml PO DAILY PRN PRN Reason: Constipation Melatonin (Melatonin 3 Mg Tablet) 6 mg PO BEDTIME PRN PRN Reason: Insomnia Naloxone HCl (Naloxone Hcl 0.4 Mg/Ml Vial) 0.04 mg IVPUSH Q5M PRN PRN Reason: Excessive sedation or RR < 8 Olanzapine (Olanzapine 10 Mg Tablet) 20 mg PO BEDTIME [facility] Last Admin: 07/21/25 22:50 Dose: 20 mg Ondansetron HCl (Ondansetron Hcl 4 Mg/2 Ml Vial) 4 mg IVPUSH Q8H PRN PRN Reason: Nausea and Vomiting Last Admin: 07/21/25 18:10 Dose: 4 mg Oxycodone HCl (Oxycodone Hcl Immed Release 5 Mg Tablet) 5 mg PO Q6H PRN PRN Reason: Pain, Severe (Pain Scale 7-10) Pantoprazole Sodium (Pantoprazole Sodium 40 Mg/10 Ml Vial) 40 mg IVPUSH BID@0630,1630 [facility] Last Admin: 07/22/25 05:59 Dose: 40 mg Pravastatin Sodium (Pravastatin Sodium 40 Mg Tablet) 40 mg PO DAILY [facility] Last Admin: 07/22/25 10:56 Dose: 40 mg Sertraline HCl (Sertraline Hcl 100 Mg Tablet) 100 mg PO DAILY [facility] Last Admin: 07/22/25 10:56 Dose: 100 mg Sertraline HCl (Sertraline Hcl 25 Mg Tablet) 25 mg PO DAILY [facility] Last Admin: 07/22/25 10:56 Dose: 25 mg Sodium Biphosphate/Sodium Phosphate (Sodium Phosphate,[place]-Dibasic 133 Ml Enema) 133 ml [place] ONCE PRN PRN Reason: Poor Colonoscopy Prep Results Last Admin: 07/22/25 10:59 Dose: 133 ml Sodium Biphosphate/Sodium Phosphate (Sodium Phosphate,[place]-Dibasic 133 Ml Enema) 133 ml [place] ONCE PRN PRN Reason: Poor Colonoscopy Prep Results Sodium Chloride (0.9 % Sodium Chloride Flush 3 Ml Syringe) 3 ml IVFLUSH QSHIFT [facility] Last Admin: 07/22/25 11:05 Dose: 3 ml Tramadol HCl (Tramadol Hcl 50 Mg Tablet) 50 mg PO Q6H PRN PRN Reason: Pain, Moderate(Pain Scale 4-6) <Eve Tong PA-C - Last Filed: 07/22/25 14:42> Home medications: Home Medications ?Medication ?Instructions ?Recorded ?Confirmed ?Last Taken ?Type acetaminophen 500 mg tablet 500 mg PO Q6H PRN Pain 07/0507/21/25 Unknown History aluminum-mag hydroxide-simethicone 30 ml PO Q4H PRN GI DISTRESS 07/21/25 07/21/25 Unknown History 200 mg-200 mg-20 mg/5 mL oral susp aspirin 81 mg tablet,delayed 81 mg PO DAILY 07/21/25 1 09/20/24 Unknown History release fenofibrate 54 mg tablet 54 mg PO DAILY 07/21/2507/12 Unknown History icosapent ethyl 1 gram capsule 1 g PO DAILY 07/21/25 1 09/20/24 Unknown History (Vascepa) lisinopril 5 mg tablet 5 mg PO DAILY 07/21/2507/21 Unknown History loperamide 2 mg tablet 2 mg PO Q4H PRN Diarrhea 07/0507/21/25 Unknown History lovastatin 40 mg tablet 40 mg PO DAILY 07/21/2507/12 Unknown History magnesium hydroxide 400 mg/5 mL 30 ml PO DAILY PRN Con stipation 07/21/25 07/21/25 Unknown History oral suspension (Milk of Magnesia) olanzapine 20 mg tablet 20 mg PO BEDTIME 07/21/25 Unknown History oxybutynin chloride 5 mg tablet 5 mg PO BID 07/21/25 1 09/20/24 Unknown History sertraline 100 mg tablet 100 mg PO DAILY 07/21/2507/05 Unknown History sertraline 50 mg tablet 25 mg PO DAILY 07/21/2507/12 Unknown History <Eve Tong PA-C - Last Filed: 07/22/25 14:42> Physical Exam 2 Vital Signs: Vital Signs: Last Vital Signs Temp 99 F 07/22/25 13:30 Pulse 64 07/22/25 13:30 Resp 16 07/22/25 13:30 BP 123/68 07/22/25 13:30 Pulse Ox 100 07/22/25 13:30 O2 Del Method Room Air 07/22/25 13:30 BMI result Body Mass Index 24.8 <Eve Tong PA-C - Last Filed: 07/22/25 14:42> Const: General: comfortable, no acute distress and alert <Eve Tong PA-C - Last Filed: 07/22/25 14:42> Orientation/consciousness: patient oriented x3 <Eve Tong PA-C - Last Filed: 07/22/25 14:42> Resp: Effort & Inspection: normal respiratory effort <ELVER Hart Last Filed: 07/22/25 14:42> GI: Inspection: No distended and No scar (no visible scars) <Eve Tong PA-C - Last Filed: 07/22/25 14:42> Palpation (GI): Soft to palpation, nontender, no guarding and not rigid < Eve Tong PA-C - Last Filed: 07/22/25 14:42> Rectal Exam - Male: Yes visual inspection normal and Yes mass (palpable mass at about 3-4cm from anal verge, no blood noted on exam ) <ELVER Hart Last Filed: 07/22/25 14:42> Skin: Other: warm and dry <ELVER Hart Last Filed: 07/22/25 14:42> General skin exam: no rashes or lesions noted <ELVER Hart Last Filed: 07/22/25 14:42> Neuro: General: patient oriented x3 and moves all extremities <Eve Tong PA-C - Last Filed: 07/22/25 14:42> Extrem: General: Yes no clubbing, cyanosis or edema <ELVER Hart Last Filed: 07/22/25 14:42> Results Labs Result diagrams: 07/23/25 06:27 07/23/25 06:27 <Eve Tong PA-C - Last Filed: 07/22/25 14:42> Labs: Abnormal lab results 07/22/25 Range/Units 06:40 WBC 4.7 L (4.8-10.8) X10*3/uL RBC 2.71 L (4.60-5.80) X10*6/uL Hgb 7.9 L (14.0-18.0) g/dl Hct 24.1 L (42.0-52.0) % Plt Count 141 L (160-400) X10*3/uL Chloride 116 H (96-108) mmol/L Carbon Dioxide 21 L (22-29) mmol/L Anion Gap 11 L (12-20) BUN 17 H (9-16) mg/dL Calcium 7.9 L (8.4-10.2) mg/dL Short CBC 07/22/25 Range/Units 06:40 WBC 4.7 L (4.8-10.8) X10*3/uL Hgb 7.9 L (14.0-18.0) g/dl Hct 24.1 L (42.0-52.0) % Plt Count 141 L (160-400) X10*3/uL BMP 07/22/25 06:40 Sodium 144 Potassium 3.8 Chloride 116 H Carbon Dioxide 21 L BUN 17 H Creatinine 0.99 Calcium 7.9 L Urine 07/20/25 Range/Units 17:06 Urine Color Yellow Urine Appearance Clear Urine pH 7.0 (5.0-9.0) Ur Specific [place] 1.015 (1.005-1.025) Urine Protein Negative (Neg-Trace) mg/dL Urine Glucose (UA) Negative (Negative) mg/dL All other labs normal. <Eve Tong PA-C - Last Filed: 07/22/25 14:42> Imaging Abdomen CT scan report/results: report reviewed and image reviewed <ELVER Hart Last Filed: 07/22/25 14:42> Additional studies: labs reviewed <ELVER Hart Last Filed: 07/22/25 14:42> Assessment and Plan (1) ABLA (acute blood loss anemia): Status: Acute <Eve Tong PA-C - Last Filed: 07/22/25 14:42> (2) Intellectual disability: Status: Acute <Eve Tong PA-C - Last Filed: 07/22/25 14:42> (3) Rectal mass: Status: Acute <Eve Togn PA-C - Last Filed: 07/22/25 14:42> 70-year-old male admitted for anemia with blood per rectum Colonoscopy shows large low-lying rectal mass, suggestive of adenocarcinoma Abdomen is soft and benign Await path report Would start metastatic workup We will follow Seen and examined independently <Jefferson Anderson MD - Last Filed: 07/23/25 09:24> 70 year old male with PMH significant for intellectual disability, HLD, schizophrenia, anxiety, T2DM, HTN and OAB presenting with acute blood loss anemia and LGIB found to have low lying rectal mass on colonoscopy today. CT scan reviewed which does not show much as it was without IV contrast. He does not appear to be obstructing and H/H is currently stable. Will await biopsy results. Ideally he would undergo neoadjuvant treatment prior to any surgical resection. Would recommend oncology consult as he may need chemo/radiation on a more urgent basis if he has continued symptoms. Can consult IR for embolization as well if he has continued bleeding from the rectal mass. Will continue to follow. <Eve Tong PA-C - Last Filed: 07/22/25 14:42> Procedures Date of Service Date of Service: 07/22/25 <Eve Tong PA-C - Last Filed: 07/22/25 14:42> 07/23/25 <Jefferson Anderson MD - Last Filed: 07/23/25 09:24>
--- NOTE | 2025-07-22 13:53 | PM.EVENT ---
Event Note Date of Service: 07/22/25 Event Note: rectal mass, surgery eval, defer cysto for now Time Spent With Patient Time: Total time managing care of this patient today ____ minutes.
[2025-07-23] VITALS (7 sets, daily range): BP systolic 96–123; BP diastolic 44–60; PULSE 61–87; RESP 16–20; TEMP 36.2–37.1; O2SAT 95–99
[2025-07-23 07:03] LABS: Hematocrit 24.1 % (42.0-52.0); Hemoglobin 7.9 g/dl (14.0-18.0); Mean Corpuscular HGB Conc 32.8 g/dl (31.0-36.0); Mean Corpuscular Hemoglobin 29.0 pg (27.0-33.0); Mean Corpuscular Volume 88.6 fL (80.0-98.0); NRBC Abs Auto 0.000 X10*3/uL (0.0-0.012); NRBC Pct Auto 0.0 /100WBC (0.0-0.2); Platelet Count 135 X10*3/uL (160-400); Red Blood Count 2.72 X10*6/uL (4.60-5.80); White Blood Count 4.4 X10*3/uL (4.8-10.8)
[2025-07-23 07:18] LABS: Anion Gap 9 (12-20); Blood Urea Nitrogen 15 mg/dL (9-16); Calcium 7.9 mg/dL (8.4-10.2); Carbon Dioxide 22 mmol/L (22-29); Chloride 115 mmol/L (96-108); Creatinine Clr Calc Pharmacy 79.1; Estimated Glomerular Filt Rate > 60; Potassium 3.7 mmol/L (3.3-5.1); Sodium 142 mmol/L (135-145)
[2025-07-23] MEDS: 0.9 % Sodium Chloride Flush 3 ML SYRINGE IVFLUSH ×2 (08:05→20:41)
--- NOTE | 2025-07-23 08:09 | HO.POSTANES ---
Post Anesthesia Evaluation Post Anesthesia Evaluation Date of Service: 07/23/25 Vital Signs: Vital Signs Temp Pulse Resp BP Pulse Ox O2 Del Method 07/23/25 07:40 97.8 F 69 18 123/60 97 Room Air 07/23/25 03:44 97.2 F 61 18 103/52 L 99 Room Air 07/23/25 00:00 97.4 F 68 18 104/60 98 Room Air Anesthesia: Monitored Mental Status: Sedated (resting comfortably) Pain Control: Satisfactory Nausea/Vomiting: None Hydration: Adequate Anesthesia-Related Issues: No Anes. Related Issues
--- NOTE | 2025-07-23 09:24 | PM.PNGS ---
Subjective Subjective Date of Service: 07/23/25 Interval history: The patient says he feels well Describes episode of bright blood per rectum at 06:00 this morning Denies abdominal pain No denies nausea or vomiting Physical Exam Vital Signs: Vital Signs: Last Vital Signs Temp 97.8 F 07/23/25 07:40 Pulse 69 07/23/25 07:40 Resp 18 07/23/25 07:40 BP 123/60 07/23/25 07:40 Pulse Ox 97 07/23/25 07:40 O2 Del Method Room Air 07/23/25 07:40 BMI result Body Mass Index 24.8 Const: Other: Answers simple questions General: comfortable and no acute distress Resp: Effort & Inspection: normal respiratory effort Cardio: Rate: regular rate GI: Palpation (GI): Soft to palpation, not firm and nontender Objective Data Active Medications Acetaminophen (Acetaminophen 325 Mg Tablet) 975 mg PO Q6H PRN PRN Reason: Pain, Mild 1-3,fever,headache Calcium Carbonate (Calcium Carbonate 750 Mg Tab.Chew) 750 mg PO Q4H PRN PRN Reason: Heartburn Fenofibrate (Fenofibrate 54 Mg Tablet) 54 mg PO DAILY [facility] Last Admin: 07/23/25 08:06 Dose: 54 mg Documented By: CHRISTIANO Magnesium Hydroxide (Milk Of Magnesia 30 Ml Oral.Susp) 30 ml PO DAILY PRN PRN Reason: Constipation Melatonin (Melatonin 3 Mg Tablet) 6 mg PO BEDTIME PRN PRN Reason: Insomnia Naloxone HCl (Naloxone Hcl 0.4 Mg/Ml Vial) 0.04 mg IVPUSH Q5M PRN PRN Reason: Excessive sedation or RR < 8 Olanzapine (Olanzapine 10 Mg Tablet) 20 mg PO BEDTIME [facility] Last Admin: 07/22/25 22:01 Dose: 20 mg Documented By: EDY Ondansetron HCl (Ondansetron Hcl 4 Mg/2 Ml Vial) 4 mg IVPUSH Q8H PRN PRN Reason: Nausea and Vomiting Last Admin: 07/21/25 18:10 Dose: 4 mg Documented By: RIMMA Oxycodone HCl (Oxycodone Hcl Immed Release 5 Mg Tablet) 5 mg PO Q6H PRN PRN Reason: Pain, Severe (Pain Scale 7-10) Pantoprazole Sodium (Pantoprazole Sodium 40 Mg/10 Ml Vial) 40 mg IVPUSH BID@0630,1630 [facility] Last Admin: 07/23/25 05:37 Dose: 40 mg Documented By: EDY Pravastatin Sodium (Pravastatin Sodium 40 Mg Tablet) 40 mg PO DAILY [facility] Last Admin: 07/23/25 08:06 Dose: 40 mg Documented By: CHRISTIANO Sertraline HCl (Sertraline Hcl 100 Mg Tablet) 100 mg PO DAILY [facility] Last Admin: 07/23/25 08:06 Dose: 100 mg Documented By: CHRISTIANO Sertraline HCl (Sertraline Hcl 25 Mg Tablet) 25 mg PO DAILY [facility] Last Admin: 07/23/25 08:06 Dose: 25 mg Documented By: CHRISTIANO Sodium Biphosphate/Sodium Phosphate (Sodium Phosphate,[place]-Dibasic 133 Ml Enema) 133 ml [place] ONCE PRN PRN Reason: Poor Colonoscopy Prep Results Last Admin: 07/22/25 10:59 Dose: 133 ml Documented By: JAYJAY Sodium Biphosphate/Sodium Phosphate (Sodium Phosphate,[place]-Dibasic 133 Ml Enema) 133 ml [place] ONCE PRN PRN Reason: Poor Colonoscopy Prep Results Sodium Chloride (0.9 % Sodium Chloride Flush 3 Ml Syringe) 3 ml IVFLUSH QSHIFT [facility] Last Admin: 07/23/25 08:05 Dose: 3 ml Documented By: CHRISTIANO Tramadol HCl (Tramadol Hcl 50 Mg Tablet) 50 mg PO Q6H PRN PRN Reason: Pain, Moderate(Pain Scale 4-6) Labs 07/23/25 06:27 07/23/25 06:27 Labs: Laboratory Results - last 24 hr 07/23/25 06:27 MCV 88.6 MCH 29.0 MCHC 32.8 RDW 16.2 H Plt Count 135 L MPV 11.3 Absolute Nucleated RBC 0.000 Nucleated RBC % (auto) 0.0 Anion Gap 9 L Estim Creat Clear Calc 79.1 Estimated GFR > 60 Random Glucose 90 Calcium 7.9 L Procedures Date of Service Date of Service: 07/23/25 Progress Note: A&P Assessment and plan (1) Rectal mass: Status: Acute Assessment and Plan: With passage of blood per rectum Suspicious for rectal adenocarcinoma Await path report Follow H&H Metastatic workup; also, MRI of pelvis to evaluate extent of tumor Likely to benefit from neoadjuvant treatment if adenocarcinoma confirmed Oncology consult If bleeding secondary to trauma from BMs, may benefit from diverting stoma If with severe bleeding, IR may be beneficial I will discuss the above with the healthcare proxy We will follow along Time Spent With Patient Time: Total time managing care of this patient today ____ minutes. Quality Stroke Does the patient have a stroke diagnosis?: No VTE Prior VTE?: No VTE Risk Level:: Medical - moderate - high VTE Device Contraindication: N/A - Device Ordered VTE Drug Contraindication: Treatment Not Indicated
--- NOTE | 2025-07-23 12:16 | P.CNHO_ITS ---
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 Patient was found to be extremely anemic he was admitted for blood transfusions and further management. Patient now admits to ongoing rectal bleeding since the summer. He also reports difficulty moving his bowel on occasions. He had CT abdomen which revealed hyperdense material within rectum likely represents hematoma. Moderate right hydroureteronephrosis secondary to a 6 mm stone in the distal right ureter. Multiple stones in the bladder. He underwent colonoscopy on 07/22/2025 which revealed low-lying 10 cm rectal mass which was bleeding, 3 cm to 13 cm from the anal verge. This was nonobstructing, involving at least 1/3 circumference. Patient states that his sister is his guardian. His mother was also treated for some type of cancer. He has never had a previous colonoscopy. Review of Systems - Constitutional Reports as per HPI, Reports fatigue, Reports malaise, Reports poor appetite, Reports weight loss - Cardiovascular Reports no additional cardiovascular complaints - Respiratory Reports no additional respiratory complaints - Gastrointestinal Reports no additional gastrointestinal complaints, Reports bright, red blood in stools, Reports change in bowel habits, Reports constipation - Neurologic Reports no additional neurologic complaints, Reports as per HPI, Denies confusion, Denies dizziness, Denies headache(s), Reports weakness Oncology Screenings - ECOG Performance Status ECOG Performance Status: 2 [facility] Medical History: Medical History (Last Reviewed 07/22/25 @ 12:21 by Arthur Palmer MD) Anxiety HLD (hyperlipidemia) HTN (hypertension) Intellectual disability OAB (overactive bladder) Schizophrenia Type 2 diabetes mellitus without complications Functional capacity: independent ambulation Surgical History: Surgical History (Last Reviewed 07/22/25 @ 12:21 by Arthur Palmer MD) Hx of cholecystectomy Status post amputation of toe of right foot Social History: Social History (Last Reviewed 07/22/25 @ 12:21 by Arthur Palmer MD) Living Situation History: Household Members: Other Household Members Other:: [facility] Housing: Prison Housing Other:: [facility] Tobacco History: Patient Tobacco Use Status: Never used Tobacco Occupation Assessmet: service: No Home Medications and Allergies Current Medications: Current Medications Acetaminophen (Acetaminophen 325 Mg Tablet) 975 mg PO Q6H PRN PRN Reason: Pain, Mild 1-3,fever,headache Calcium Carbonate (Calcium Carbonate 750 Mg Tab.Chew) 750 mg PO Q4H PRN PRN Reason: Heartburn Fenofibrate (Fenofibrate 54 Mg Tablet) 54 mg PO DAILY [facility] Last Admin: 07/23/25 08:06 Dose: 54 mg Magnesium Hydroxide (Milk Of Magnesia 30 Ml Oral.Susp) 30 ml PO DAILY PRN PRN Reason: Constipation Melatonin (Melatonin 3 Mg Tablet) 6 mg PO BEDTIME PRN PRN Reason: Insomnia Naloxone HCl (Naloxone Hcl 0.4 Mg/Ml Vial) 0.04 mg IVPUSH Q5M PRN PRN Reason: Excessive sedation or RR < 8 Olanzapine (Olanzapine 10 Mg Tablet) 20 mg PO BEDTIME [facility] Last Admin: 07/22/25 22:01 Dose: 20 mg Ondansetron HCl (Ondansetron Hcl 4 Mg/2 Ml Vial) 4 mg IVPUSH Q8H PRN PRN Reason: Nausea and Vomiting Last Admin: 07/21/25 18:10 Dose: 4 mg Oxycodone HCl (Oxycodone Hcl Immed Release 5 Mg Tablet) 5 mg PO Q6H PRN PRN Reason: Pain, Severe (Pain Scale 7-10) Pantoprazole Sodium (Pantoprazole Sodium 40 Mg/10 Ml Vial) 40 mg IVPUSH BID@0630,1630 [facility] Last Admin: 07/23/25 05:37 Dose: 40 mg Pravastatin Sodium (Pravastatin Sodium 40 Mg Tablet) 40 mg PO DAILY [facility] Last Admin: 07/23/25 08:06 Dose: 40 mg Sertraline HCl (Sertraline Hcl 100 Mg Tablet) 100 mg PO DAILY [facility] Last Admin: 07/23/25 08:06 Dose: 100 mg Sertraline HCl (Sertraline Hcl 25 Mg Tablet) 25 mg PO DAILY [facility] Last Admin: 07/23/25 08:06 Dose: 25 mg Sodium Biphosphate/Sodium Phosphate (Sodium Phosphate,[place]-Dibasic 133 Ml Enema) 133 ml [place] ONCE PRN PRN Reason: Poor Colonoscopy Prep Results Last Admin: 07/22/25 10:59 Dose: 133 ml Sodium Biphosphate/Sodium Phosphate (Sodium Phosphate,[place]-Dibasic 133 Ml Enema) 133 ml [place] ONCE PRN PRN Reason: Poor Colonoscopy Prep Results Sodium Chloride (0.9 % Sodium Chloride Flush 3 Ml Syringe) 3 ml IVFLUSH QSHIFT [facility] Last Admin: 07/23/25 08:05 Dose: 3 ml Tramadol HCl (Tramadol Hcl 50 Mg Tablet) 50 mg PO Q6H PRN PRN Reason: Pain, Moderate(Pain Scale 4-6) Home Medications ?Medication ?Instructions ?Recorded ?Confirmed ?Type acetaminophen 500 mg tablet 500 mg PO Q6H PRN Pain 07/21/25 07/21/25 History aluminum-mag hydroxide-simethicone 30 ml PO Q4H PRN GI DISTRESS 07/21/25 07/21/25 History 200 mg-200 mg-20 mg/5 mL oral susp aspirin 81 mg tablet,delayed 81 mg PO DAILY 07/21/25 07/21/25 History release fenofibrate 54 mg tablet 54 mg PO DAILY 07/21/25 07/21/25 History icosapent ethyl 1 gram capsule 1 g PO DAILY 07/21/25 07/21/25 History (Vascepa) lisinopril 5 mg tablet 5 mg PO DAILY 07/21/25 07/21/25 History loperamide 2 mg tablet 2 mg PO Q4H PRN Diarrhea 07/21/25 History lovastatin 40 mg tablet 40 mg PO DAILY 07/21/25 07/21/25 History magnesium hydroxide 400 mg/5 mL 30 ml PO DAILY PRN Constipation 07/21/25 07/21/25 History oral suspension (Milk of Magnesia) olanzapine 20 mg tablet 20 mg PO BEDTIME 07/21/25 07/21/25 Histo ry oxybutynin chloride 5 mg tablet 5 mg PO BID 07/21/25 07/21/25 History sertraline 100 mg tablet 100 mg PO DAILY 07/21/25 07/21/25 Histor y sertraline 50 mg tablet 25 mg PO DAILY 07/21/25 07/21/25 History Allergies Allergy/AdvReac Type Severity Reaction Status Date / Time fluphenazine (From PROLIXIN) Allergy Severe SEIZURES Verified 07/20/25 14:58 proxlin AdvReac Unknown seizures Uncoded 07/20/25 14:58 Physical Exam Vital signs: Vital Signs Temp 97.8 F 07/23/25 07:40 Pulse 69 07/23/25 07:40 Resp 18 07/23/25 07:40 BP 123/60 07/23/25 07:40 Pulse Ox 97 07/23/25 07:40 O2 Del Method Room Air 07/23/25 07:40 Intake & Output 07/22/25 07/23/25 07/23/25 18:59 06:59 18:59 Intake Total 250 / 250 0 / 250 1000 / 1000 Output Total 200 / 200 Balance 250 / 50 -200 / 50 1000 / 1000 Urine Output (Average ml/kg/hr) 0.19 0.19 Intake: Intake, Oral Amount 0 / 0 IV Intake, Intraoperative 250 / 250 Amount Intake, IV Amount 1000 / 1000 Lactated Ringers 1,000 ml @ 50 1000 / 1000 mls/hr IVCONT .Q20H [facility] Rx#: [id number] Output: Output, Urine Amount 200 / 200 Other: Meal Refused No NPO No Number of Unmeasured Voids 0 Number of Bowel Movements 0 Last Bowel Movement 07/22/25 07/22/25 07/23/25 Weight 87.7 kg - Constitutional Present: no acute distress, average body habitus, chronically ill appearing - Routine HEENT Exam Head: Present: normal inspection Eye: Present: conjunctivae pale - Routine Neck Exam Present: supple. Absent: lymphadenopathy - Routine Respiratory Exam Present: CTAB. Absent: wheezes - Routine Cardiovascular Exam Cardiovascular: Present: RRR, S1, S2 - Routine Abdominal Exam Present: soft - Routine Extremities Exam Present: pulses intact. Absent: pedal edema - Routine Skin Exam Present: intact - Routine Neurological Exam Present: alert, oriented X3 Hem/Onc Consult Result - Labs CBC & Chem 7: 07/23/25 06:27 07/23/25 06:27 Labs: Short CBC 07/23/25 Range/Units 06:27 WBC 4.4 L (4.8-10.8) X10*3/uL Hgb 7.9 L (14.0-18.0) g/dl Hct 24.1 L (42.0-52.0) % Plt Count 135 L (160-400) X10*3/uL BMP 07/23/25 06:27 Sodium 142 Potassium 3.7 Chloride 115 H Carbon Dioxide 22 BUN 15 Creatinine 1.01 Calcium 7.9 L Assessment and Plan Patient Active problem list reviewed?: Yes (1) Rectal mass Status: Acute Assessment and plan: 1. This is a 78-year-old male presenting with large rectal mass, severe iron- deficiency anemia secondary to rectal bleeding and weight loss worrisome for malignancy. He has undergone colonoscopy on 07/22/2025 which revealed low-lying 10 cm rectal mass which was bleeding, 3 cm to 13 cm from the anal verge. This was nonobstructing, involving at least 1/3 circumference. Biopsy results pending. CEA level elevated at 10.90 NG/mL. Patient is a nonsmoker. Once biopsy is confirmed treatment plan can be determined. He will also need a staging workup with chest CT or PET scan. If tumor is confined to rectum, neoadjuvant chemotherapy or immunotherapy depending on molecular markers followed by chemo RT/surgery as definitive treatment for localized disease would be planned. If he has metastatic disease, palliative systemic therapy will be offered. I have explained this briefly with the patient. I will get in touch with his sister who is the guardian to discuss further once biopsy is confirmed. Thank you for the consultation. - Time Spent With Patient Time Spent with Patient (in minutes): 30 Additional Coding: - Additional E/M codes Complex E/M visit Add On: CPT G2211
[2025-07-23 12:56] LABS: Carcinoembryonic Antigen 10.90 ng/mL
--- NOTE | 2025-07-23 15:11 | MHC.CM.PN ---
Per rounds, pt is not yet ready to DC, he will be seen by surgery and oncology.
--- NOTE | 2025-07-23 17:10 | P.PNIM_ITS ---
Subjective Subjective Date of Service: 07/24/25 Interval History: rectal mass Describes episode of bright blood per rectum at 06:00 this morning Review of Systems as above. asking for food Review of Systems: Yes all other systems are reviewed and are negative Physical Exam 2 Exam: Exam: Appearance: Alert.? Oriented X3.? cvs: rrr, [id number] . res: clear to auscultation ,no rhonchii or wheezing abd: no rebound or guarding ,nt, bs present. ext pulses present , no cyanosis . neuro: axo3 , nonfocal. For Vital Signs: Vital Signs: Last Vital Signs Temp 98.8 F 07/23/25 16:00 Pulse 73 07/23/25 16:00 Resp 20 07/23/25 16:00 BP 96/55 L 07/23/25 16:00 Pulse Ox 96 07/23/25 16:00 O2 Del Method Room Air 07/23/25 16:00 BMI result Body Mass Index 24.8 Objective Data Active Medications Acetaminophen (Acetaminophen 325 Mg Tablet) 975 mg PO Q6H PRN PRN Reason: Pain, Mild 1-3,fever,headache Calcium Carbonate (Calcium Carbonate 750 Mg Tab.Chew) 750 mg PO Q4H PRN PRN Reason: Heartburn Fenofibrate (Fenofibrate 54 Mg Tablet) 54 mg PO DAILY [facility] Last Admin: 07/23/25 08:06 Dose: 54 mg Documented By: CHRISTIANO Magnesium Hydroxide (Milk Of Magnesia 30 Ml Oral.Susp) 30 ml PO DAILY PRN PRN Reason: Constipation Melatonin (Melatonin 3 Mg Tablet) 6 mg PO BEDTIME PRN PRN Reason: Insomnia Naloxone HCl (Naloxone Hcl 0.4 Mg/Ml Vial) 0.04 mg IVPUSH Q5M PRN PRN Reason: Excessive sedation or RR < 8 Olanzapine (Olanzapine 10 Mg Tablet) 20 mg PO BEDTIME [facility] Last Admin: 07/22/25 22:01 Dose: 20 mg Documented By: EDY Ondansetron HCl (Ondansetron Hcl 4 Mg/2 Ml Vial) 4 mg IVPUSH Q8H PRN PRN Reason: Nausea and Vomiting Last Admin: 07/21/25 18:10 Dose: 4 mg Documented By: RIMMA Oxycodone HCl (Oxycodone Hcl Immed Release 5 Mg Tablet) 5 mg PO Q6H PRN PRN Reason: Pain, Severe (Pain Scale 7-10) Pantoprazole Sodium (Pantoprazole Sodium 40 Mg/10 Ml Vial) 40 mg IVPUSH BID@0630,1630 [facility] Last Admin: 07/23/25 16:30 Dose: 40 mg Documented By: CHRISTIANO Pravastatin Sodium (Pravastatin Sodium 40 Mg Tablet) 40 mg PO DAILY [facility] Last Admin: 07/23/25 08:06 Dose: 40 mg Documented By: CHRISTIANO Sertraline HCl (Sertraline Hcl 100 Mg Tablet) 100 mg PO DAILY [facility] Last Admin: 07/23/25 08:06 Dose: 100 mg Documented By: CHRISTIANO Sertraline HCl (Sertraline Hcl 25 Mg Tablet) 25 mg PO DAILY [facility] Last Admin: 07/23/25 08:06 Dose: 25 mg Documented By: CHRISTIANO Sodium Biphosphate/Sodium Phosphate (Sodium Phosphate,[place]-Dibasic 133 Ml Enema) 133 ml [place] ONCE PRN PRN Reason: Poor Colonoscopy Prep Results Last Admin: 07/22/25 10:59 Dose: 133 ml Documented By: JAYJAY Sodium Biphosphate/Sodium Phosphate (Sodium Phosphate,[place]-Dibasic 133 Ml Enema) 133 ml [place] ONCE PRN PRN Reason: Poor Colonoscopy Prep Results Sodium Chloride (0.9 % Sodium Chloride Flush 3 Ml Syringe) 3 ml IVFLUSH QSHIFT [facility] Last Admin: 07/23/25 15:00 Dose: Not Given Documented By: CHRISTIANO Non-Admin Reason: Previously Administered Tramadol HCl (Tramadol Hcl 50 Mg Tablet) 50 mg PO Q6H PRN PRN Reason: Pain, Moderate(Pain Scale 4-6) Labs 07/23/25 06:27 07/23/25 06:27 Labs: Laboratory Results - last 24 hr 07/23/25 06:27 MCV 88.6 MCH 29.0 MCHC 32.8 RDW 16.2 H Plt Count 135 L MPV 11.3 Absolute Nucleated RBC 0.000 Nucleated RBC % (auto) 0.0 Anion Gap 9 L Estim Creat Clear Calc 79.1 Estimated GFR > 60 Random Glucose 90 Calcium 7.9 L Lactate Dehydrogenase 132 Carcinoembryonic Ag 10.90 Assessment and Plan (1) Rectal mass: Status: Acute Assessment and Plan: 70M PMH intellectual disability, hyperlipidemia, schizophrenia, anxiety, diabetes status post right toe amputation, hypertension presented with fall, bright red blood per rectum, found to have severe anemia Acute on chronic blood loss anemia with bright red blood per rectum Hemoglobin improved after 3 units from 4.3 to 7, now 7.9 Plan for colonoscopy 07/22/2025 had no bleeding after prep Monitor hemoglobin Continue PPI surgery eval noted:Suspicious for rectal adenocarcinoma Await path report Follow H&H Metastatic workup; also, MRI of pelvis to evaluate extent of tumor Likely to benefit from neoadjuvant treatment if adenocarcinoma confirmed Oncology consult If bleeding secondary to trauma from BMs, may benefit from diverting stoma If with severe bleeding, IR may be beneficial Right hydronephrosis due to obstructing stone Appears asymptomatic, planning on eventual cysto Acute kidney injury Due to hypoperfusion from anemia Monitored Schizophrenia Olanzapine Diabetes Insulin sliding scale DVT prophylaxis-mechanical due to severe anemia and bright red blood per rectum DNR/DNI reason for continued hospitalization: Working up GI bleed Quality Stroke Does the patient have a stroke diagnosis?: No VTE Prior VTE?: No VTE Risk Level:: Medical - moderate - high VTE Device Contraindication: N/A - Device Ordered VTE Drug Contraindication: Treatment Not Indicated
[2025-07-24 03:15] VITALS: BP 114/66; PULSE 79; RESP 18; TEMP 36.5; O2SAT 98
[2025-07-24 07:01] VITALS: BP 123/63; PULSE 79; RESP 18; TEMP 36.4; O2SAT 95
[2025-07-24] MEDS: 0.9 % Sodium Chloride Flush 3 ML SYRINGE IVFLUSH ×3 (08:55→21:58)
[2025-07-24 10:58] VITALS: BP 108/63; PULSE 74; RESP 18; TEMP 37.2; O2SAT 92
--- NOTE | 2025-07-24 15:33 | P.PNGS_ITS ---
Subjective Subjective Date of Service: 07/24/25 Interval history: Denies new complaints Says he has had no bleeding today He feels well overall Physical Exam 2 Vital Signs: Vital Signs: Last Vital Signs Temp 98.9 F 07/24/25 10:58 Pulse 74 07/24/25 10:58 Resp 18 07/24/25 10:58 BP 108/63 07/24/25 10:58 Pulse Ox 92 07/24/25 10:58 O2 Del Method Room Air 07/24/25 10:58 BMI result Body Mass Index 24.8 Const: Other: Mental status was unchanged General: comfortable and no acute distress Resp: Effort & Inspection: normal respiratory effort GI: Palpation (GI): Soft to palpation, not firm and nontender Objective Data Active Medications Acetaminophen (Acetaminophen 325 Mg Tablet) 975 mg PO Q6H PRN PRN Reason: Pain, Mild 1-3,fever,headache Calcium Carbonate (Calcium Carbonate 750 Mg Tab.Chew) 750 mg PO Q4H PRN PRN Reason: Heartburn Fenofibrate (Fenofibrate 54 Mg Tablet) 54 mg PO DAILY [facility] Last Admin: 07/24/25 08:54 Dose: 54 mg Documented By: YRIS Magnesium Hydroxide (Milk Of Magnesia 30 Ml Oral.Susp) 30 ml PO DAILY PRN PRN Reason: Constipation Melatonin (Melatonin 3 Mg Tablet) 6 mg PO BEDTIME PRN PRN Reason: Insomnia Naloxone HCl (Naloxone Hcl 0.4 Mg/Ml Vial) 0.04 mg IVPUSH Q5M PRN PRN Reason: Excessive sedation or RR < 8 Olanzapine (Olanzapine 10 Mg Tablet) 20 mg PO BEDTIME [facility] Last Admin: 07/23/25 20:40 Dose: 20 mg Documented By: ARNOLD Ondansetron HCl (Ondansetron Hcl 4 Mg/2 Ml Vial) 4 mg IVPUSH Q8H PRN PRN Reason: Nausea and Vomiting Last Admin: 07/21/25 18:10 Dose: 4 mg Documented By: RIMMA Oxycodone HCl (Oxycodone Hcl Immed Release 5 Mg Tablet) 5 mg PO Q6H PRN PRN Reason: Pain, Severe (Pain Scale 7-10) Pantoprazole Sodium (Pantoprazole Sodium 40 Mg/10 Ml Vial) 40 mg IVPUSH BID@0630,1630 [facility] Last Admin: 07/24/25 05:52 Dose: 40 mg Documented By: ARNOLD Pravastatin Sodium (Pravastatin Sodium 40 Mg Tablet) 40 mg PO DAILY [facility] Last Admin: 07/24/25 08:55 Dose: 40 mg Documented By: YRIS Sertraline HCl (Sertraline Hcl 100 Mg Tablet) 100 mg PO DAILY [facility] Last Admin: 07/24/25 08:54 Dose: 100 mg Documented By: YRIS Sertraline HCl (Sertraline Hcl 25 Mg Tablet) 25 mg PO DAILY [facility] Last Admin: 07/24/25 08:54 Dose: 25 mg Documented By: YRIS Sodium Biphosphate/Sodium Phosphate (Sodium Phosphate,[place]-Dibasic 133 Ml Enema) 133 ml [place] ONCE PRN PRN Reason: Poor Colonoscopy Prep Results Last Admin: 07/22/25 10:59 Dose: 133 ml Documented By: JAYJAY Sodium Biphosphate/Sodium Phosphate (Sodium Phosphate,[place]-Dibasic 133 Ml Enema) 133 ml [place] ONCE PRN PRN Reason: Poor Colonoscopy Prep Results Sodium Chloride (0.9 % Sodium Chloride Flush 3 Ml Syringe) [facility] Admin: 07/24/25 08:55 Dose: 3 ml Documented By: YRIS Tramadol HCl (Tramadol Hcl 50 Mg Tablet) 50 mg PO Q6H PRN PRN Reason: Pain, Moderate(Pain Scale 4-6) Labs 07/23/25 06:27 07/23/25 06:27 Procedures Date of Service Date of Service: 07/24/25 Progress Note: A&P Assessment and plan (1) Rectal mass: Status: Acute Assessment and Plan: Likely adenocarcinoma Await path report of biopsy Hemoglobin has been stable Oncology consult for neoadjuvant treatment Abdomen is soft and benign We will follow okay to advance diet as tolerated Stool softeners Time Spent With Patient Time: Total time managing care of this patient today ____ minutes. Quality Stroke Does the patient have a stroke diagnosis?: No VTE Prior VTE?: No VTE Risk Level:: Medical - moderate - high VTE Device Contraindication: N/A - Device Ordered VTE Drug Contraindication: Treatment Not Indicated
[2025-07-24 15:37] VITALS: BP 131/71; PULSE 80; RESP 18; TEMP 37.1; O2SAT 95
--- NOTE | 2025-07-24 16:32 | HO.PM.IMPN ---
Subjective Subjective Date of Service: 07/24/25 Interval History: Rectal mass. Review of Systems No new bleeding Denies abdominal pain or nausea vomiting Review of Systems: Yes all other systems are reviewed and are negative Physical Exam Exam: Exam: Appearance: Alert.? Oriented X3.? cvs: rrr, [id number] . res: clear to auscultation ,no rhonchii or wheezing abd: no rebound or guarding ,nt, bs present. ext pulses present , no cyanosis . neuro: axo3 , nonfocal. Vital Signs: Vital Signs: Last Vital Signs Temp 98.8 F 07/24/25 15:37 Pulse 80 07/24/25 15:37 Resp 18 07/24/25 15:37 BP 131/71 07/24/25 15:37 Pulse Ox 95 07/24/25 15:37 O2 Del Method Room Air 07/24/25 15:37 BMI result Body Mass Index 24.8 Objective Data Active Medications Acetaminophen (Acetaminophen 325 Mg Tablet) 975 mg PO Q6H PRN PRN Reason: Pain, Mild 1-3,fever,headache Calcium Carbonate (Calcium Carbonate 750 Mg Tab.Chew) 750 mg PO Q4H PRN PRN Reason: Heartburn Fenofibrate (Fenofibrate 54 Mg Tablet) 54 mg PO DAILY [facility] Last Admin: 07/24/25 08:54 Dose: 54 mg Documented By: YRIS Magnesium Hydroxide (Milk Of Magnesia 30 Ml Oral.Susp) 30 ml PO DAILY PRN PRN Reason: Constipation Melatonin (Melatonin 3 Mg Tablet) 6 mg PO BEDTIME PRN PRN Reason: Insomnia Naloxone HCl (Naloxone Hcl 0.4 Mg/Ml Vial) 0.04 mg IVPUSH Q5M PRN PRN Reason: Excessive sedation or RR < 8 Olanzapine (Olanzapine 10 Mg Tablet) 20 mg PO BEDTIME [facility] Last Admin: 07/23/25 20:40 Dose: 20 mg Documented By: ARNOLD Ondansetron HCl (Ondansetron Hcl 4 Mg/2 Ml Vial) 4 mg IVPUSH Q8H PRN PRN Reason: Nausea and Vomiting Last Admin: 07/21/25 18:10 Dose: 4 mg Documented By: RIMMA Oxycodone HCl (Oxycodone Hcl Immed Release 5 Mg Tablet) 5 mg PO Q6H PRN PRN Reason: Pain, Severe (Pain Scale 7-10) Pantoprazole Sodium (Pantoprazole Sodium 40 Mg/10 Ml Vial) 40 mg IVPUSH BID@0630,1630 [facility] Last Admin: 07/24/25 15:34 Dose: 40 mg Documented By: YRIS Pravastatin Sodium (Pravastatin Sodium 40 Mg Tablet) 40 mg PO DAILY [facility] Last Admin: 07/24/25 08:55 Dose: 40 mg Documented By: YRIS Sertraline HCl (Sertraline Hcl 100 Mg Tablet) 100 mg PO DAILY [facility] Last Admin: 07/24/25 08:54 Dose: 100 mg Documented By: YRIS Sertraline HCl (Sertraline Hcl 25 Mg Tablet) 25 mg PO DAILY [facility] Last Admin: 07/24/25 08:54 Dose: 25 mg Documented By: YRIS Sodium Biphosphate/Sodium Phosphate (Sodium Phosphate,[place]-Dibasic 133 Ml Enema) 133 ml [place] ONCE PRN PRN Reason: Poor Colonoscopy Prep Results Last Admin: 07/22/25 10:59 Dose: 133 ml Documented By: JAYJAY Sodium Biphosphate/Sodium Phosphate (Sodium Phosphate,[place]-Dibasic 133 Ml Enema) 133 ml [place] ONCE PRN PRN Reason: Poor Colonoscopy Prep Results Sodium Chloride (0.9 % Sodium Chloride Flush 3 Ml Syringe) 3 ml IVFLUSH QSHIFT [facility] Last Admin: 07/24/25 15:42 Dose: 3 ml Documented By: YRIS Tramadol HCl (Tramadol Hcl 50 Mg Tablet) 50 mg PO Q6H PRN PRN Reason: Pain, Moderate(Pain Scale 4-6) Labs 07/23/25 06:27 07/23/25 06:27 Assessment and Plan (1) Rectal mass: Status: Acute Assessment and Plan: 70M PMH intellectual disability, hyperlipidemia, schizophrenia, anxiety, diabetes status post right toe amputation, hypertension presented with fall, bright red blood per rectum, found to have severe anemia Acute on chronic blood loss anemia with bright red blood per rectum Hemoglobin improved after 3 units from 4.3 to 7, now 7.9 Plan for colonoscopy 07/22/2025 had no bleeding after prep Monitor hemoglobin Continue PPI surgery eval noted:Suspicious for rectal adenocarcinoma Await path report Follow H&H Metastatic workup; also, MRI of pelvis to evaluate extent of tumor Likely to benefit from neoadjuvant treatment if adenocarcinoma confirmed Oncology consult If bleeding secondary to trauma from BMs, may benefit from diverting stoma If with severe bleeding, IR may be beneficial Right hydronephrosis due to obstructing stone Appears asymptomatic, planning on eventual cysto Acute kidney injury Due to hypoperfusion from anemia Monitored Schizophrenia Olanzapine Diabetes Insulin sliding scale DVT prophylaxis-mechanical due to severe anemia and bright red blood per rectum DNR/DNI reason for continued hospitalization: Working up GI bleed/hemonc eval ,path pending Quality Stroke Does the patient have a stroke diagnosis?: No VTE Prior VTE?: No VTE Risk Level:: Medical - moderate - high VTE Device Contraindication: N/A - Device Ordered VTE Drug Contraindication: Treatment Not Indicated
[2025-07-24 19:28] VITALS: BP 132/74; PULSE 73; RESP 16; TEMP 37; O2SAT 97
[2025-07-24 22:58] VITALS: BP 100/55; PULSE 71; RESP 18; TEMP 36.6; O2SAT 95
[2025-07-25 03:24] VITALS: BP 133/67; PULSE 71; RESP 16; TEMP 36.7; O2SAT 96
[2025-07-25 07:42] VITALS: BP 102/59; PULSE 73; RESP 18; TEMP 36.7; O2SAT 95
[2025-07-25] MEDS: 0.9 % Sodium Chloride Flush 3 ML SYRINGE IVFLUSH ×3 (07:59→21:16)
[2025-07-25 11:52] VITALS: BP 100/63; PULSE 87; RESP 20; TEMP 37.2; O2SAT 96
--- NOTE | 2025-07-25 13:22 | P.PNGS_ITS ---
Subjective Subjective Date of Service: 07/25/25 Interval history: Denies complaints No further bleeding he says Denies abdominal pain Physical Exam 2 Vital Signs: Vital Signs: Last Vital Signs Temp 98.9 F 07/25/25 11:52 Pulse 87 07/25/25 11:52 Resp 20 07/25/25 11:52 BP 100/63 07/25/25 11:52 Pulse Ox 96 07/25/25 11:52 O2 Del Method Room Air 07/25/25 11:52 BMI result Body Mass Index 24.8 Const: General: comfortable and no acute distress Resp: Effort & Inspection: normal respiratory effort GI: Other: Refused rectal exam Palpation (GI): Soft to palpation, not firm and nontender Objective Data Active Medications Acetaminophen (Acetaminophen 325 Mg Tablet) 975 mg PO Q6H PRN PRN Reason: Pain, Mild 1-3,fever,headache Calcium Carbonate (Calcium Carbonate 750 Mg Tab.Chew) 750 mg PO Q4H PRN PRN Reason: Heartburn Fenofibrate (Fenofibrate 54 Mg Tablet) 54 mg PO DAILY [facility] Last Admin: 07/25/25 07:58 Dose: 54 mg Documented By: YRIS Magnesium Hydroxide (Milk Of Magnesia 30 Ml Oral.Susp) 30 ml PO DAILY PRN PRN Reason: Constipation Melatonin (Melatonin 3 Mg Tablet) 6 mg PO BEDTIME PRN PRN Reason: Insomnia Naloxone HCl (Naloxone Hcl 0.4 Mg/Ml Vial) 0.04 mg IVPUSH Q5M PRN PRN Reason: Excessive sedation or RR < 8 Olanzapine (Olanzapine 10 Mg Tablet) 20 mg PO BEDTIME [facility] Last Admin: 07/24/25 21:55 Dose: 20 mg Documented By: GENOVEVA Ondansetron HCl (Ondansetron Hcl 4 Mg/2 Ml Vial) 4 mg IVPUSH Q8H PRN PRN Reason: Nausea and Vomiting Last Admin: 07/21/25 18:10 Dose: 4 mg Documented By: RIMMA Oxycodone HCl (Oxycodone Hcl Immed Release 5 Mg Tablet) 5 mg PO Q6H PRN PRN Reason: Pain, Severe (Pain Scale 7-10) Pantoprazole Sodium (Pantoprazole Sodium 40 Mg/10 Ml Vial) 40 mg IVPUSH BID@0630,1630 [facility] Last Admin: 07/25/25 05:45 Dose: 40 mg Documented By: ARNOLD Pravastatin Sodium (Pravastatin Sodium 40 Mg Tablet) 40 mg PO DAILY [facility] Last Admin: 07/25/25 07:59 Dose: 40 mg Documented By: YRIS Sertraline HCl (Sertraline Hcl 100 Mg Tablet) 100 mg PO DAILY [facility] Last Admin: 07/25/25 07:58 Dose: 100 mg Documented By: YRIS Sertraline HCl (Sertraline Hcl 25 Mg Tablet) 25 mg PO DAILY [facility] Last Admin: 07/25/25 07:59 Dose: 25 mg Documented By: YRIS Sodium Biphosphate/Sodium Phosphate (Sodium Phosphate,[place]-Dibasic 133 Ml Enema) 133 ml [place] ONCE PRN PRN Reason: Poor Colonoscopy Prep Results Last Admin: 07/22/25 10:59 Dose: 133 ml Documented By: JAYJAY Sodium Biphosphate/Sodium Phosphate (Sodium Phosphate,[place]-Dibasic 133 Ml Enema) 133 ml [place] ONCE PRN PRN Reason: Poor Colonoscopy Prep Results Sodium Chloride (0.9 % Sodium Chloride Flush 3 Ml Syringe) 3 ml IVFLUSH QSHIFT [facility] Last Admin: 07/25/25 07:59 Dose: 3 ml Documented By: YRIS Tramadol HCl (Tramadol Hcl 50 Mg Tablet) 50 mg PO Q6H PRN PRN Reason: Pain, Moderate(Pain Scale 4-6) Labs 07/23/25 06:27 07/23/25 06:27 Procedures Date of Service Date of Service: 07/25/25 Progress Note: A&P Assessment and plan (1) Rectal mass: Status: Acute Assessment and Plan: Appearance of the rectal mass on colonoscopy was suggestive of adenocarcinoma However path report shows tubulovillous adenoma We will plan on doing an exam under anesthesia and more biopsies Probably will do this early next week Continue to follow H&H No further significant bleeding episodes as per patient Avoid anticoagulation Time Spent With Patient Time: Total time managing care of this patient today ____ minutes. Quality Stroke Does the patient have a stroke diagnosis?: No VTE Prior VTE?: No VTE Risk Level:: Medical - moderate - high VTE Device Contraindication: N/A - Device Ordered VTE Drug Contraindication: Treatment Not Indicated
--- NOTE | 2025-07-25 15:23 | HO.PM.IMPN ---
Subjective Subjective Date of Service: 07/25/25 Interval History: rectal mass ,bleed Review of Systems no new episode of bleeding no abd pain Physical Exam Exam: Exam: Appearance: Alert.? Oriented X3.? cvs: [id number], [id number] . res: clear to auscultation ,no rhonchii or wheezing abd: no rebound or guarding ,nt, bs present. ext pulses present , no cyanosis . neuro: axo3 , nonfocal. Vital Signs: Vital Signs: Last Vital Signs Temp 98.9 F 07/25/25 11:52 Pulse 87 07/25/25 11:52 Resp 20 07/25/25 11:52 BP 100/63 07/25/25 11:52 Pulse Ox 96 07/25/25 11:52 O2 Del Method Room Air 07/25/25 11:52 BMI result Body Mass Index 24.8 Objective Data Active Medications Acetaminophen (Acetaminophen 325 Mg Tablet) 975 mg PO Q6H PRN PRN Reason: Pain, Mild 1-3,fever,headache Last Admin: 07/25/25 15:02 Dose: 975 mg Documented By: YRIS Calcium Carbonate (Calcium Carbonate 750 Mg Tab.Chew) 750 mg PO Q4H PRN PRN Reason: Heartburn Fenofibrate (Fenofibrate 54 Mg Tablet) 54 mg PO DAILY [facility] Last Admin: 07/25/25 07:58 Dose: 54 mg Documented By: YRIS Magnesium Hydroxide (Milk Of Magnesia 30 Ml Oral.Susp) 30 ml PO DAILY PRN PRN Reason: Constipation Melatonin (Melatonin 3 Mg Tablet) 6 mg PO BEDTIME PRN PRN Reason: Insomnia Naloxone HCl (Naloxone Hcl 0.4 Mg/Ml Vial) 0.04 mg IVPUSH Q5M PRN PRN Reason: Excessive sedation or RR < 8 Olanzapine (Olanzapine 10 Mg Tablet) 20 mg PO BEDTIME [facility] Last Admin: 07/24/25 21:55 Dose: 20 mg Documented By: GENOVEVA Ondansetron HCl (Ondansetron Hcl 4 Mg/2 Ml Vial) 4 mg IVPUSH Q8H PRN PRN Reason: Nausea and Vomiting Last Admin: 07/21/25 18:10 Dose: 4 mg Documented By: RIMMA Oxycodone HCl (Oxycodone Hcl Immed Release 5 Mg Tablet) 5 mg PO Q6H PRN PRN Reason: Pain, Severe (Pain Scale 7-10) Pantoprazole Sodium (Pantoprazole Sodium 40 Mg/10 Ml Vial) 40 mg IVPUSH BID@0630,1630 [facility] Last Admin: 07/25/25 05:45 Dose: 40 mg Documented By: ARNOLD Pravastatin Sodium (Pravastatin Sodium 40 Mg Tablet) 40 mg PO DAILY [facility] Last Admin: 07/25/25 07:59 Dose: 40 mg Documented By: YRIS Sertraline HCl (Sertraline Hcl 100 Mg Tablet) 100 mg PO DAILY [facility] Last Admin: 07/25/25 07:58 Dose: 100 mg Documented By: YRIS Sertraline HCl (Sertraline Hcl 25 Mg Tablet) 25 mg PO DAILY [facility] Last Admin: 07/25/25 07:59 Dose: 25 mg Documented By: YRIS Sodium Biphosphate/Sodium Phosphate (Sodium Phosphate,[place]-Dibasic 133 Ml Enema) 133 ml [place] ONCE PRN PRN Reason: Poor Colonoscopy Prep Results Last Admin: 07/22/25 10:59 Dose: 133 ml Documented By: JAYJAY Sodium Biphosphate/Sodium Phosphate (Sodium Phosphate,[place]-Dibasic 133 Ml Enema) 133 ml [place] ONCE PRN PRN Reason: Poor Colonoscopy Prep Results Sodium Chloride (0.9 % Sodium Chloride Flush 3 Ml Syringe) 3 ml IVFLUSH QSHIFT [facility] Last Admin: 07/25/25 07:59 Dose: 3 ml Documented By: YRIS Tramadol HCl (Tramadol Hcl 50 Mg Tablet) 50 mg PO Q6H PRN PRN Reason: Pain, Moderate(Pain Scale 4-6) Labs 07/23/25 06:27 07/23/25 06:27 Assessment and Plan (1) Rectal mass: Status: Acute Assessment and Plan: 70M PMH intellectual disability, hyperlipidemia, schizophrenia, anxiety, diabetes status post right toe amputation, hypertension presented with fall, bright red blood per rectum, found to have severe anemia Acute on chronic blood loss anemia with bright red blood per rectum Hemoglobin improved after 3 units from 4.3 to 7, now 7.9 Plan for colonoscopy 07/22/2025 had no bleeding after prep h/h stable Continue PPI surgery eval noted:Suspicious for rectal adenocarcinoma However path report shows tubulovillous adenoma Patient will need another biopsy earlier next week. Right hydronephrosis due to obstructing stone Appears asymptomatic, planning on eventual cysto Acute kidney injury Due to hypoperfusion from anemia Monitored Schizophrenia Olanzapine Diabetes Insulin sliding scale DVT prophylaxis-mechanical due to severe anemia and bright red blood per rectum DNR/DNI reason for continued hospitalization: Working up GI bleed/hemonc eval ,path pending, awaiting repeat biopsy Quality Stroke Does the patient have a stroke diagnosis?: No VTE Prior VTE?: No VTE Risk Level:: Medical - moderate - high VTE Device Contraindication: N/A - Device Ordered VTE Drug Contraindication: Treatment Not Indicated
[2025-07-25 15:55] VITALS: BP 100/66; PULSE 97; RESP 18; TEMP 37.2; O2SAT 96
[2025-07-25 19:43] VITALS: BP 120/64; PULSE 85; RESP 18; TEMP 36.7; O2SAT 94
[2025-07-26] VITALS (7 sets, daily range): BP systolic 101–148; BP diastolic 53–75; PULSE 70–88; RESP 15–18; TEMP 36–36.6; O2SAT 93–99
[2025-07-26] MEDS: 0.9 % Sodium Chloride Flush 3 ML SYRINGE IVFLUSH ×3 (07:35→19:57)
--- NOTE | 2025-07-26 09:10 | P.PNGS_ITS ---
Subjective Subjective Date of Service: 07/27/25 Interval history: pt doing ok says no further bleeding -knows scheduled for bx early next week and agrees Physical Exam 2 Vital Signs: Vital Signs: Last Vital Signs Temp 96.8 F 07/26/25 07:38 Pulse 70 07/26/25 07:38 Resp 16 07/26/25 07:38 BP 108/55 L 07/26/25 07:38 Pulse Ox 96 07/26/25 07:38 O2 Del Method Room Air 07/26/25 07:38 BMI result Body Mass Index 24.8 GI: Other: abdomen - benign Objective Data Active Medications Acetaminophen (Acetaminophen 325 Mg Tablet) 975 mg PO Q6H PRN PRN Reason: Pain, Mild 1-3,fever,headache Last Admin: 07/26/25 07:34 Dose: 975 mg Documented By: KATINA Calcium Carbonate (Calcium Carbonate 750 Mg Tab.Chew) 750 mg PO Q4H PRN PRN Reason: Heartburn Fenofibrate (Fenofibrate 54 Mg Tablet) 54 mg PO DAILY [facility] Last Admin: 07/26/25 07:34 Dose: 54 mg Documented By: KATINA Magnesium Hydroxide (Milk Of Magnesia 30 Ml Oral.Susp) 30 ml PO DAILY PRN PRN Reason: Constipation Melatonin (Melatonin 3 Mg Tablet) 6 mg PO BEDTIME PRN PRN Reason: Insomnia Naloxone HCl (Naloxone Hcl 0.4 Mg/Ml Vial) 0.04 mg IVPUSH Q5M PRN PRN Reason: Excessive sedation or RR < 8 Olanzapine (Olanzapine 10 Mg Tablet) 20 mg PO BEDTIME [facility] Last Admin: 07/25/25 21:14 Dose: 20 mg Documented By: JR Ondansetron HCl (Ondansetron Hcl 4 Mg/2 Ml Vial) 4 mg IVPUSH Q8H PRN PRN Reason: Nausea and Vomiting Last Admin: 07/21/25 18:10 Dose: 4 mg Documented By: RIMMA Oxycodone HCl (Oxycodone Hcl Immed Release 5 Mg Tablet) 5 mg PO Q6H PRN PRN Reason: Pain, Severe (Pain Scale 7-10) Pantoprazole Sodium (Pantoprazole Sodium 40 Mg/10 Ml Vial) 40 mg IVPUSH BID@0630,1630 [facility] Last Admin: 07/26/25 05:56 Dose: 40 mg Documented By: EVERARDO Pravastatin Sodium (Pravastatin Sodium 40 Mg Tablet) 40 mg PO DAILY [facility] Last Admin: 07/26/25 07:34 Dose: 40 mg Documented By: KATINA Sertraline HCl (Sertraline Hcl 100 Mg Tablet) 100 mg PO DAILY [facility] Last Admin: 07/26/25 07:34 Dose: 100 mg Documented By: KATINA Sertraline HCl (Sertraline Hcl 25 Mg Tablet) 25 mg PO DAILY [facility] Last Admin: 07/26/25 07:34 Dose: 25 mg Documented By: KTAINA Sodium Biphosphate/Sodium Phosphate (Sodium Phosphate,[place]-Dibasic 133 Ml Enema) 133 ml [place] ONCE PRN PRN Reason: Poor Colonoscopy Prep Results Last Admin: 07/22/25 10:59 Dose: 133 ml Documented By: JAYJAY Sodium Biphosphate/Sodium Phosphate (Sodium Phosphate,[place]-Dibasic 133 Ml Enema) 133 ml [place] ONCE PRN PRN Reason: Poor Colonoscopy Prep Results Sodium Chloride (0.9 % Sodium Chloride Flush 3 Ml Syringe) 3 ml IVFLUSH QSHIFT [facility] Last Admin: 07/26/25 07:35 Dose: 3 ml Documented By: KATINA Tramadol HCl (Tramadol Hcl 50 Mg Tablet) 50 mg PO Q6H PRN PRN Reason: Pain, Moderate(Pain Scale 4-6) Labs 07/23/25 06:27 07/23/25 06:27 Procedures Date of Service Date of Service: 07/27/25 Progress Note: A&P Assessment and plan (1) Rectal mass: Status: Acute Assessment and Plan: pt with signifiant rectal mass but bx only showing TVA - will need EUA and biopsies in OR and he agrees. will make npo after midnight Monday Time Spent With Patient Time: Total time managing care of this patient today ____ minutes. Quality Stroke Does the patient have a stroke diagnosis?: No VTE Prior VTE?: No VTE Risk Level:: Medical - moderate - high VTE Device Contraindication: N/A - Device Ordered VTE Drug Contraindication: Treatment Not Indicated
--- NOTE | 2025-07-26 15:34 | P.PNIM_ITS ---
Subjective Subjective Date of Service: 07/26/25 Interval History: rectal mass ,bleed Review of Systems no new episode of bleeding no abd pain Review of Systems: Yes all other systems are reviewed and are negative Physical Exam 2 Exam: Exam: Appearance: Alert.? Oriented X3.? cvs: [id number], [id number] . res: clear to auscultation ,no rhonchii or wheezing abd: no rebound or guarding ,nt, bs present. ext pulses present , no cyanosis . neuro: axo3 , nonfocal. Vital Signs: Vital Signs: Last Vital Signs Temp 97.4 F 07/26/25 12:00 Pulse 80 07/26/25 12:00 Resp 16 07/26/25 12:00 BP 148/75 H 07/26/25 12:00 Pulse Ox 97 07/26/25 12:00 O2 Del Method Room Air 07/26/25 12:00 BMI result Body Mass Index 24.8 Objective Data Active Medications Acetaminophen (Acetaminophen 325 Mg Tablet) 975 mg PO Q6H PRN PRN Reason: Pain, Mild 1-3,fever,headache Last Admin: 07/26/25 07:34 Dose: 975 mg Documented By: KATINA Calcium Carbonate (Calcium Carbonate 750 Mg Tab.Chew) 750 mg PO Q4H PRN PRN Reason: Heartburn Fenofibrate (Fenofibrate 54 Mg Tablet) 54 mg PO DAILY [facility] Last Admin: 07/26/25 07:34 Dose: 54 mg Documented By: KATINA Magnesium Hydroxide (Milk Of Magnesia 30 Ml Oral.Susp) 30 ml PO DAILY PRN PRN Reason: Constipation Melatonin (Melatonin 3 Mg Tablet) 6 mg PO BEDTIME PRN PRN Reason: Insomnia Naloxone HCl (Naloxone Hcl 0.4 Mg/Ml Vial) 0.04 mg IVPUSH Q5M PRN PRN Reason: Excessive sedation or RR < 8 Olanzapine (Olanzapine 10 Mg Tablet) 20 mg PO BEDTIME [facility] Last Admin: 07/25/25 21:14 Dose: 20 mg Documented By: JR Ondansetron HCl (Ondansetron Hcl 4 Mg/2 Ml Vial) 4 mg IVPUSH Q8H PRN PRN Reason: Nausea and Vomiting Last Admin: 07/21/25 18:10 Dose: 4 mg Documented By: RIMMA Oxycodone HCl (Oxycodone Hcl Immed Release 5 Mg Tablet) 5 mg PO Q6H PRN PRN Reason: Pain, Severe (Pain Scale 7-10) Pantoprazole Sodium (Pantoprazole Sodium 40 Mg/10 Ml Vial) 40 mg IVPUSH BID@0630,1630 [facility] Last Admin: 07/26/25 05:56 Dose: 40 mg Documented By: EVERARDO Pravastatin Sodium (Pravastatin Sodium 40 Mg Tablet) 40 mg PO DAILY [facility] Last Admin: 07/26/25 07:34 Dose: 40 mg Documented By: KATINA Sertraline HCl (Sertraline Hcl 100 Mg Tablet) 100 mg PO DAILY [facility] Last Admin: 07/26/25 07:34 Dose: 100 mg Documented By: KATINA Sertraline HCl (Sertraline Hcl 25 Mg Tablet) 25 mg PO DAILY [facility] Last Admin: 07/26/25 07:34 Dose: 25 mg Documented By: KATINA Sodium Biphosphate/Sodium Phosphate (Sodium Phosphate,[place]-Dibasic 133 Ml Enema) 133 ml [place] ONCE PRN PRN Reason: Poor Colonoscopy Prep Results Last Admin: 07/22/25 10:59 Dose: 133 ml Documented By: JAYJAY Sodium Biphosphate/Sodium Phosphate (Sodium Phosphate,[place]-Dibasic 133 Ml Enema) 133 ml [place] ONCE PRN PRN Reason: Poor Colonoscopy Prep Results Sodium Chloride (0.9 % Sodium Chloride Flush 3 Ml Syringe) 3 ml IVFLUSH QSHIFT [facility] Last Admin: 07/26/25 07:35 Dose: 3 ml Documented By: KATINA Tramadol HCl (Tramadol Hcl 50 Mg Tablet) 50 mg PO Q6H PRN PRN Reason: Pain, Moderate(Pain Scale 4-6) Labs 07/23/25 06:27 07/23/25 06:27 Assessment and Plan (1) Rectal mass: Status: Acute Assessment and Plan: 70M PMH intellectual disability, hyperlipidemia, schizophrenia, anxiety, diabetes status post right toe amputation, hypertension presented with fall, bright red blood per rectum, found to have severe anemia Acute on chronic blood loss anemia with bright red blood per rectum Hemoglobin improved after 3 units from 4.3 to 7, now 7.9 Plan for colonoscopy 07/22/2025 had no bleeding after prep h/h stable Continue PPI surgery eval noted:Suspicious for rectal adenocarcinoma However path report shows tubulovillous adenoma Patient will need another biopsy earlier next week. Right hydronephrosis due to obstructing stone Appears asymptomatic, planning on eventual cysto Acute kidney injury Due to hypoperfusion from anemia Monitored Schizophrenia Olanzapine Diabetes Insulin sliding scale DVT prophylaxis-mechanical due to severe anemia and bright red blood per rectum DNR/DNI reason for continued hospitalization: Working up GI bleed/hemonc eval ,awaiting repeat biopsy Quality Stroke Does the patient have a stroke diagnosis?: No VTE Prior VTE?: No VTE Risk Level:: Medical - moderate - high VTE Device Contraindication: N/A - Device Ordered VTE Drug Contraindication: Treatment Not Indicated
--- NOTE | 2025-07-26 16:14 | PC.NURSE ---
Sister Josi requesting call from Dr Turner with update either tonight or tomorrow. Dr Turner notified via text message and stated he will call
[2025-07-27 03:20] VITALS: BP 112/55; PULSE 89; RESP 18; TEMP 36.1; O2SAT 93
[2025-07-27] MEDS: oxyCODONE HCl Immed Release 5 MG TABLET PO ×3 (05:28→21:37)
[2025-07-27 07:12] VITALS: BP 132/68; PULSE 75; RESP 14; TEMP 36.4; O2SAT 97
[2025-07-27] MEDS: 0.9 % Sodium Chloride Flush 3 ML SYRINGE IVFLUSH ×3 (08:01→19:56)
[2025-07-27 11:36] VITALS: BP 117/58; PULSE 76; RESP 16; TEMP 36.7; O2SAT 97
--- NOTE | 2025-07-27 12:13 | HO.PM.IMPN ---
Subjective Subjective Date of Service: 07/27/25 Interval History: rectal mass Review of Systems no new rectal bleed Review of Systems: Yes all other systems are reviewed and are negative Physical Exam Exam: Exam: Appearance: Alert.? Oriented X3.? cvs: rrr, [id number] . res: clear to auscultation ,no rhonchii or wheezing abd: no rebound or guarding ,nt, bs present. ext pulses present , no cyanosis . neuro: axo3 , nonfocal. Vital Signs: Vital Signs: Last Vital Signs Temp 98.0 F 07/27/25 11:36 Pulse 76 07/27/25 11:36 Resp 16 07/27/25 11:36 BP 117/58 L 07/27/25 11:36 Pulse Ox 97 07/27/25 11:36 O2 Del Method Room Air 07/27/25 11:36 BMI result Body Mass Index 24.8 Objective Data Active Medications Acetaminophen (Acetaminophen 325 Mg Tablet) 975 mg PO Q6H PRN PRN Reason: Pain, Mild 1-3,fever,headache Last Admin: 07/27/25 08:01 Dose: 975 mg Documented By: ROBEL Calcium Carbonate (Calcium Carbonate 750 Mg Tab.Chew) 750 mg PO Q4H PRN PRN Reason: Heartburn Fenofibrate (Fenofibrate 54 Mg Tablet) 54 mg PO DAILY [facility] Last Admin: 07/27/25 08:01 Dose: 54 mg Documented By: ROBEL Magnesium Hydroxide (Milk Of Magnesia 30 Ml Oral.Susp) 30 ml PO DAILY PRN PRN Reason: Constipation Melatonin (Melatonin 3 Mg Tablet) 6 mg PO BEDTIME PRN PRN Reason: Insomnia Naloxone HCl (Naloxone Hcl 0.4 Mg/Ml Vial) 0.04 mg IVPUSH Q5M PRN PRN Reason: Excessive sedation or RR < 8 Olanzapine (Olanzapine 10 Mg Tablet) 20 mg PO BEDTIME [facility] Last Admin: 07/26/25 19:53 Dose: 20 mg Documented By: EVERARDO Ondansetron HCl (Ondansetron Hcl 4 Mg/2 Ml Vial) 4 mg IVPUSH Q8H PRN PRN Reason: Nausea and Vomiting Last Admin: 07/21/25 18:10 Dose: 4 mg Documented By: RIMMA Oxycodone HCl (Oxycodone Hcl Immed Release 5 Mg Tablet) 5 mg PO Q6H PRN PRN Reason: Pain, Severe (Pain Scale 7-10) Last Admin: 07/27/25 12:03 Dose: 5 mg Documented By: ROBEL Pantoprazole Sodium (Pantoprazole Sodium 40 Mg/10 Ml Vial) 40 mg IVPUSH BID@0630,1630 [facility] Last Admin: 07/27/25 05:25 Dose: 40 mg Documented By: ROBERT Pravastatin Sodium (Pravastatin Sodium 40 Mg Tablet) 40 mg PO DAILY [facility] Last Admin: 07/27/25 08:01 Dose: 40 mg Documented By: ROBEL Sertraline HCl (Sertraline Hcl 100 Mg Tablet) 100 mg PO DAILY [facility] Last Admin: 07/27/25 08:01 Dose: 100 mg Documented By: ROBEL Sertraline HCl (Sertraline Hcl 25 Mg Tablet) 25 mg PO DAILY [facility] Last Admin: 07/27/25 08:01 Dose: 25 mg Documented By: ROBEL Sodium Biphosphate/Sodium Phosphate (Sodium Phosphate,[place]-Dibasic 133 Ml Enema) 133 ml [place] ONCE PRN PRN Reason: Poor Colonoscopy Prep Results Last Admin: 07/22/25 10:59 Dose: 133 ml Documented By: JAYJAY Sodium Biphosphate/Sodium Phosphate (Sodium Phosphate,[place]-Dibasic 133 Ml Enema) 133 ml [place] ONCE PRN PRN Reason: Poor Colonoscopy Prep Results Sodium Chloride (0.9 % Sodium Chloride Flush 3 Ml Syringe) 3 ml IVFLUSH QSHIFT [facility] Last Admin: 07/27/25 08:01 Dose: 3 ml Documented By: ROBEL Tramadol HCl (Tramadol Hcl 50 Mg Tablet) 50 mg PO Q6H PRN PRN Reason: Pain, Moderate(Pain Scale 4-6) Labs 07/23/25 06:27 07/23/25 06:27 Assessment and Plan (1) Rectal mass: Status: Acute Assessment and Plan: 70M PMH intellectual disability, hyperlipidemia, schizophrenia, anxiety, diabetes status post right toe amputation, hypertension presented with fall, bright red blood per rectum, found to have severe anemia Acute on chronic blood loss anemia with bright red blood per rectum Hemoglobin improved after 3 units from 4.3 to 7, last h/h 7.9 Plan for colonoscopy 07/22/2025 had no bleeding after prep h/h stable Continue PPI surgery eval noted:Suspicious for rectal adenocarcinoma However path report shows tubulovillous adenoma Patient will need another biopsy earlier next week. Right hydronephrosis due to obstructing stone Appears asymptomatic, planning on eventual cysto Acute kidney injury Due to hypoperfusion from anemia Monitored Schizophrenia Olanzapine Diabetes Insulin sliding scale DVT prophylaxis-mechanical due to severe anemia and bright red blood per rectum DNR/DNI reason for continued hospitalization: Working up GI bleed/hemonc eval ,awaiting repeat biopsy Quality Stroke Does the patient have a stroke diagnosis?: No VTE Prior VTE?: No VTE Risk Level:: Medical - moderate - high VTE Device Contraindication: N/A - Device Ordered VTE Drug Contraindication: Treatment Not Indicated
[2025-07-27 15:31] VITALS: BP 133/73; PULSE 80; RESP 14; TEMP 36.2; O2SAT 96
[2025-07-27 20:00] VITALS: BP 129/66; PULSE 107; RESP 18; TEMP 36.3; O2SAT 94
[2025-07-27] MEDS: Lactated Ringers 1,000 ML 80 ML IVCONT (23:27)
[2025-07-28] VITALS (7 sets, daily range): BP systolic 112–147; BP diastolic 58–65; PULSE 74–94; RESP 16–18; TEMP 36.3–36.9; O2SAT 95–100
[2025-07-28] MEDS: oxyCODONE HCl Immed Release 5 MG TABLET PO ×3 (04:06→19:43)
[2025-07-28 06:22] LABS: Hematocrit 23.5 % (42.0-52.0); Hemoglobin 7.3 g/dl (14.0-18.0); Mean Corpuscular HGB Conc 31.1 g/dl (31.0-36.0); Mean Corpuscular Hemoglobin 27.5 pg (27.0-33.0); Mean Corpuscular Volume 88.7 fL (80.0-98.0); NRBC Abs Auto 0.000 X10*3/uL (0.0-0.012); NRBC Pct Auto 0.0 /100WBC (0.0-0.2); Platelet Count 123 X10*3/uL (160-400); Red Blood Count 2.65 X10*6/uL (4.60-5.80); White Blood Count 4.5 X10*3/uL (4.8-10.8)
[2025-07-28 06:41] LABS: Anion Gap 10 (12-20); Blood Urea Nitrogen 12 mg/dL (9-16); Calcium 8.2 mg/dL (8.4-10.2); Carbon Dioxide 22 mmol/L (22-29); Chloride 114 mmol/L (96-108); Creatinine Clr Calc Pharmacy 81.5; Estimated Glomerular Filt Rate > 60; Potassium 4.0 mmol/L (3.3-5.1); Sodium 142 mmol/L (135-145)
[2025-07-28] MEDS: 0.9 % Sodium Chloride Flush 3 ML SYRINGE IVFLUSH ×3 (08:40→19:43)
--- NOTE | 2025-07-28 10:48 | PM.PNGS ---
Subjective Subjective Date of Service: 07/29/25 Interval history: No further bleeding according to patient He says he feels well He is refusing any examination of the rectum currently He says he does not want to do any biopsy today. Physical Exam Vital Signs: Vital Signs: Last Vital Signs Temp 98.5 F 07/28/25 06:52 Pulse 81 07/28/25 06:52 Resp 17 07/28/25 06:52 BP 147/65 H 07/28/25 06:52 Pulse Ox 100 07/28/25 06:52 O2 Del Method Room Air 07/28/25 06:52 BMI result Body Mass Index 24.8 Const: General: comfortable and no acute distress Resp: Effort & Inspection: normal respiratory effort Cardio: Rate: regular rate GI: Palpation (GI): Soft to palpation Objective Data Active Medications Acetaminophen (Acetaminophen 325 Mg Tablet) 975 mg PO Q6H PRN PRN Reason: Pain, Mild 1-3,fever,headache Last Admin: 07/27/25 08:01 Dose: 975 mg Documented By: ROBEL Calcium Carbonate (Calcium Carbonate 750 Mg Tab.Chew) 750 mg PO Q4H PRN PRN Reason: Heartburn Fenofibrate (Fenofibrate 54 Mg Tablet) 54 mg PO DAILY [facility] Last Admin: 07/28/25 08:39 Dose: 54 mg Documented By: JAYJAY Lactated Ringer's (Lr) 1,000 mls @ 80 mls/hr IVCONT .[id number] [facility] Last Admin: 07/27/25 23:27 Dose: 80 mls/hr Documented By: JAE Magnesium Hydroxide (Milk Of Magnesia 30 Ml Oral.Susp) 30 ml PO DAILY PRN PRN Reason: Constipation Melatonin (Melatonin 3 Mg Tablet) 6 mg PO BEDTIME PRN PRN Reason: Insomnia Naloxone HCl (Naloxone Hcl 0.4 Mg/Ml Vial) 0.04 mg IVPUSH Q5M PRN PRN Reason: Excessive sedation or RR < 8 Olanzapine (Olanzapine 10 Mg Tablet) 20 mg PO BEDTIME [facility] Last Admin: 07/27/25 19:56 Dose: 20 mg Documented By: JAE Ondansetron HCl (Ondansetron Hcl 4 Mg/2 Ml Vial) 4 mg IVPUSH Q8H PRN PRN Reason: Nausea and Vomiting Last Admin: 07/28/25 03:49 Dose: 4 mg Documented By: JAE Oxycodone HCl (Oxycodone Hcl Immed Release 5 Mg Tablet) 5 mg PO Q6H PRN PRN Reason: Pain, Severe (Pain Scale 7-10) Last Admin: 07/28/25 10:33 Dose: 5 mg Documented By: LAURA Pantoprazole Sodium (Pantoprazole Sodium 40 Mg/10 Ml Vial) 40 mg IVPUSH BID@0630,1630 [facility] Last Admin: 07/28/25 05:24 Dose: 40 mg Documented By: JAE Pravastatin Sodium (Pravastatin Sodium 40 Mg Tablet) 40 mg PO DAILY [facility] Last Admin: 07/28/25 08:39 Dose: 40 mg Documented By: JAYJAY Sertraline HCl (Sertraline Hcl 100 Mg Tablet) 100 mg PO DAILY [facility] Last Admin: 07/28/25 08:39 Dose: 100 mg Documented By: JAYJAY Sertraline HCl (Sertraline Hcl 25 Mg Tablet) 25 mg PO DAILY [facility] Last Admin: 07/28/25 08:39 Dose: 25 mg Documented By: JAYJAY Sodium Biphosphate/Sodium Phosphate (Sodium Phosphate,[place]-Dibasic 133 Ml Enema) 133 ml [place] ONCE PRN PRN Reason: Poor Colonoscopy Prep Results Last Admin: 07/22/25 10:59 Dose: 133 ml Documented By: JAYJAY Sodium Biphosphate/Sodium Phosphate (Sodium Phosphate,[place]-Dibasic 133 Ml Enema) 133 ml [place] ONCE PRN PRN Reason: Poor Colonoscopy Prep Results Sodium Chloride (0.9 % Sodium Chloride Flush 3 Ml Syringe) [facility] Last Admin: 07/28/25 08:40 Dose: 3 ml Documented By: JAYJAY Tramadol HCl (Tramadol Hcl 50 Mg Tablet) 50 mg PO Q6H PRN PRN Reason: Pain, Moderate(Pain Scale 4-6) Labs 07/28/25 05:53 07/28/25 05:53 Labs: Laboratory Results - last 24 hr 07/28/25 07/28/25 05:53 08:23 MCV 88.7 MCH 27.5 MCHC 31.1 RDW 15.6 Plt Count 123 L MPV 12.1 Absolute Nucleated RBC 0.000 Nucleated RBC % (auto) 0.0 Anion Gap 10 L Estim Creat Clear Calc 81.5 Estimated GFR > 60 Random Glucose 101 Calcium 8.2 L Blood Type A Positive Antibody Screen NEGATIVE Procedures Date of Service Date of Service: 07/29/25 Progress Note: A&P Assessment and plan (1) Rectal mass: Status: Acute Assessment and Plan: No further bleeding Biopsy showing tubulovillous adenoma However, colonoscopically, mass very suspicious for invasive adenocarcinoma I had explained to the patient that it may be best to do an exam under anesthesia and try to get better tissue for pathology He says that he does not want any procedure today Refusing rectal exam I had discussed this with Josi, his healthcare proxy and sister She says that she will try to discuss this with him again Patient asking to have food Time Spent With Patient Time: Total time managing care of this patient today ____ minutes. Quality Stroke Does the patient have a stroke diagnosis?: No VTE Prior VTE?: No VTE Risk Level:: Medical - moderate - high VTE Device Contraindication: N/A - Device Ordered VTE Drug Contraindication: Treatment Not Indicated
[2025-07-28] MEDS: Lactated Ringers 1,000 ML 80 ML IVCONT (11:37)
--- NOTE | 2025-07-28 14:32 | HO.PM.IMPN ---
Subjective Subjective Date of Service: 07/28/25 Interval History: rectal mass Review of Systems patient is hesitant to get biopsy today has episode of diarrhea No abdominal pain Review of Systems: Yes all other systems are reviewed and are negative Physical Exam Exam: Exam: Appearance: Alert.? Oriented X3.? cvs: [id number], [id number]. res: clear to auscultation ,no rhonchii or wheezing abd: no rebound or guarding ,nt, bs present. ext pulses present , no cyanosis. neuro: axo3 , nonfocal. Vital Signs: Vital Signs: Last Vital Signs Temp 98 F 07/28/25 11:10 Pulse 74 07/28/25 11:10 Resp 16 07/28/25 11:10 BP 132/64 07/28/25 11:10 Pulse Ox 99 07/28/25 11:10 O2 Del Method Room Air 07/28/25 11:10 BMI result Body Mass Index 24.8 Objective Data Active Medications Acetaminophen (Acetaminophen 325 Mg Tablet) 975 mg PO Q6H PRN PRN Reason: Pain, Mild 1-3,fever,headache Last Admin: 07/27/25 08:01 Dose: 975 mg Documented By: ROBEL Calcium Carbonate (Calcium Carbonate 750 Mg Tab.Chew) 750 mg PO Q4H PRN PRN Reason: Heartburn Fenofibrate (Fenofibrate 54 Mg Tablet) 54 mg PO DAILY [facility] Last Admin: 07/28/25 08:39 Dose: 54 mg Documented By: JAYJAY Lactated Ringer's (Lr) 1,000 mls @ 80 mls/hr IVCONT .[id number] [facility] Last Admin: 07/28/25 11:37 Dose: 80 mls/hr Documented By: JAYJAY Magnesium Hydroxide (Milk Of Magnesia 30 Ml Oral.Susp) 30 ml PO DAILY PRN PRN Reason: Constipation Melatonin (Melatonin 3 Mg Tablet) 6 mg PO BEDTIME PRN PRN Reason: Insomnia Naloxone HCl (Naloxone Hcl 0.4 Mg/Ml Vial) 0.04 mg IVPUSH Q5M PRN PRN Reason: Excessive sedation or RR < 8 Olanzapine (Olanzapine 10 Mg Tablet) 20 mg PO BEDTIME [facility] Last Admin: 07/27/25 19:56 Dose: 20 mg Documented By: JAE Ondansetron HCl (Ondansetron Hcl 4 Mg/2 Ml Vial) 4 mg IVPUSH Q8H PRN PRN Reason: Nausea and Vomiting Last Admin: 07/28/25 03:49 Dose: 4 mg Documented By: JAE Oxycodone HCl (Oxycodone Hcl Immed Release 5 Mg Tablet) 5 mg PO Q6H PRN PRN Reason: Pain, Severe (Pain Scale 7-10) Last Admin: 07/28/25 10:33 Dose: 5 mg Documented By: LAURA Pantoprazole Sodium (Pantoprazole Sodium 40 Mg/10 Ml Vial) 40 mg IVPUSH BID@0630,1630 [facility] Last Admin: 07/28/25 05:24 Dose: 40 mg Documented By: JAE Pravastatin Sodium (Pravastatin Sodium 40 Mg Tablet) 40 mg PO DAILY [facility] Last Admin: 07/28/25 08:39 Dose: 40 mg Documented By: JAYJAY Sertraline HCl (Sertraline Hcl 100 Mg Tablet) 100 mg PO DAILY [facility] Last Admin: 07/28/25 08:39 Dose: 100 mg Documented By: JAYJAY Sertraline HCl (Sertraline Hcl 25 Mg Tablet) 25 mg PO DAILY [facility] Last Admin: 07/28/25 08:39 Dose: 25 mg Documented By: JAYJAY Sodium Biphosphate/Sodium Phosphate (Sodium Phosphate,[place]-Dibasic 133 Ml Enema) 133 ml [place] ONCE PRN PRN Reason: Poor Colonoscopy Prep Results Last Admin: 07/22/25 10:59 Dose: 133 ml Documented By: JAYJAY Sodium Biphosphate/Sodium Phosphate (Sodium Phosphate,[place]-Dibasic 133 Ml Enema) 133 ml [place] ONCE PRN PRN Reason: Poor Colonoscopy Prep Results Sodium Chloride (0.9 % Sodium Chloride Flush 3 Ml Syringe) 3 ml IVFLUSH QSHIFT [facility] Last Admin: 07/28/25 08:40 Dose: 3 ml Documented By: JAYJAY Tramadol HCl (Tramadol Hcl 50 Mg Tablet) 50 mg PO Q6H PRN PRN Reason: Pain, Moderate(Pain Scale 4-6) Labs 07/28/25 05:53 07/28/25 05:53 Labs: Laboratory Results - last 24 hr 07/28/25 07/28/25 05:53 08:23 MCV 88.7 MCH 27.5 MCHC 31.1 RDW 15.6 Plt Count 123 L MPV 12.1 Absolute Nucleated RBC 0.000 Nucleated RBC % (auto) 0.0 Anion Gap 10 L Estim Creat Clear Calc 81.5 Estimated GFR > 60 Random Glucose 101 Calcium 8.2 L Blood Type A Positive Antibody Screen NEGATIVE Assessment and Plan (1) Rectal mass: Status: Acute Assessment and Plan: 70M PMH intellectual disability, hyperlipidemia, schizophrenia, anxiety, diabetes status post right toe amputation, hypertension presented with fall, bright red blood per rectum, found to have severe anemia Acute on chronic blood loss anemia with bright red blood per rectum Hemoglobin improved after 3 units from 4.3 to 7, last h/h 7.9 Plan for colonoscopy 07/22/2025 had no bleeding after prep h/h stable Continue PPI surgery eval noted:Suspicious for rectal adenocarcinoma However path report shows tubulovillous adenoma Patient will need another biopsy earlier next week. Right hydronephrosis due to obstructing stone Appears asymptomatic, planning on eventual cysto Acute kidney injury Due to hypoperfusion from anemia Monitored Schizophrenia Olanzapine Diabetes Insulin sliding scale DVT prophylaxis-mechanical due to severe anemia and bright red blood per rectum DNR/DNI reason for continued hospitalization: Working up GI bleed/hemonc eval ,awaiting repeat biopsy Quality Stroke Does the patient have a stroke diagnosis?: No VTE Prior VTE?: No VTE Risk Level:: Medical - moderate - high VTE Device Contraindication: N/A - Device Ordered VTE Drug Contraindication: Treatment Not Indicated
--- NOTE | 2025-07-28 14:56 | P.CDIM_ITS ---
PROVIDER RESPONSE TEXT: To clarify, the appropriate diagnosis supported by the clinical indicators: Pancytopenia: possible pancytopenia QUERY TEXT: PHYSICIAN'S DOCUMENTATION REQUEST Date of Query: 07/28/2025 11:58 AM EST Patient Name: Joe Morris Admit Date: 07/21/2025 Dear Hanane Turner MD, A review of the medical record indicates additional documentation may be needed. Please review below and update the documentation accordingly. Clinical Indicators: LABS: Hematology - WBC 4.4 RBC 2.65 PLT 123 L Surgery eval noted Suspicious for rectal adenocarcinoma. Path report show tubulovillous adenoma. Another biopsy next week. Based on the above, could you clarify if there is a diagnosis that correlates with these lab findings: Pancytopenia possible, suspected, cannot rule out etc. Other specified Other (explain) Clinically unable to determine (explain) Thank you, Lissett Ontiveros, CCS, CDIS Use of terms such as suspected, likely, concern for, or probable (associated with a specific diagnosis that is being evaluated, monitored, or treated as if it exists) are acceptable and can be coded in the inpatient setting, when documented at the time of discharge. Please use your independent medical judgment in providing your response. THIS QUERY IS PART OF THE PERMANENT MEDICAL RECORD
--- NOTE | 2025-07-28 15:22 | MHC.CM.PN ---
Addendum entered by Jessika Patel 07/29/25 10:41: Biopsy was not performed as scheduled 07/28/25. Original Note: Patient is not medically clear to dc today. He is scheduled for a rectal mass biopsy. DP Return to [facility]. They may assist with transport at discharge.
[2025-07-28 22:07] LABS: CDiff Gene PCR NEGATIVE (Negative)
[2025-07-29] MEDS: oxyCODONE HCl Immed Release 5 MG TABLET PO ×3 (03:00→18:44)
[2025-07-29 03:24] VITALS: BP 111/55; PULSE 81; RESP 18; TEMP 36.3; O2SAT 99
--- NOTE | 2025-07-29 07:29 | PM.PNGS ---
Subjective Subjective Date of Service: 07/30/25 Interval history: No reported bleeding Denies any pain Says he feels well Physical Exam Vital Signs: Vital Signs: Last Vital Signs Temp 97.3 F 07/29/25 03:24 Pulse 81 07/29/25 03:24 Resp 18 07/29/25 03:24 BP 111/55 L 07/29/25 03:24 Pulse Ox 99 07/29/25 03:24 O2 Del Method Room Air 07/29/25 03:24 BMI result Body Mass Index 24.8 Const: General: comfortable and no acute distress Resp: Effort & Inspection: normal respiratory effort Cardio: Rate: regular rate GI: Other: Rectal exam done - palpable mass in the rectum within of the index finger, firm, and indurated Palpation (GI): Soft to palpation, not firm and nontender Objective Data Active Medications Acetaminophen (Acetaminophen 325 Mg Tablet) 975 mg PO Q6H PRN PRN Reason: Pain, Mild 1-3,fever,headache Last Admin: 07/27/25 08:01 Dose: 975 mg Documented By: ROBEL Calcium Carbonate (Calcium Carbonate 750 Mg Tab.Chew) 750 mg PO Q4H PRN PRN Reason: Heartburn Fenofibrate (Fenofibrate 54 Mg Tablet) 54 mg PO DAILY [facility] Last Admin: 07/28/25 08:39 Dose: 54 mg Documented By: JAYJAY Magnesium Hydroxide (Milk Of Magnesia 30 Ml Oral.Susp) 30 ml PO DAILY PRN PRN Reason: Constipation Melatonin (Melatonin 3 Mg Tablet) 6 mg PO BEDTIME PRN PRN Reason: Insomnia Naloxone HCl (Naloxone Hcl 0.4 Mg/Ml Vial) 0.04 mg IVPUSH Q5M PRN PRN Reason: Excessive sedation or RR < 8 Olanzapine (Olanzapine 10 Mg Tablet) 20 mg PO BEDTIME [facility] Last Admin: 07/28/25 19:43 Dose: 20 mg Documented By: ALEXANDER Ondansetron HCl (Ondansetron Hcl 4 Mg/2 Ml Vial) 4 mg IVPUSH Q8H PRN PRN Reason: Nausea and Vomiting Last Admin: 07/28/25 03:49 Dose: 4 mg Documented By: JAE Oxycodone HCl (Oxycodone Hcl Immed Release 5 Mg Tablet) 5 mg PO Q6H PRN PRN Reason: Pain, Severe (Pain Scale 7-10) Last Admin: 07/29/25 03:00 Dose: 5 mg Documented By: ARETHA Pantoprazole Sodium (Pantoprazole Sodium 40 Mg/10 Ml Vial) 40 mg IVPUSH BID@0630,1630 [facility] Last Admin: 07/29/25 05:42 Dose: 40 mg Documented By: ARETHA Pravastatin Sodium (Pravastatin Sodium 40 Mg Tablet) 40 mg PO DAILY [facility] Last Admin: 07/28/25 08:39 Dose: 40 mg Documented By: JAYJAY Sertraline HCl (Sertraline Hcl 100 Mg Tablet) 100 mg PO DAILY [facility] Last Admin: 07/28/25 08:39 Dose: 100 mg Documented By: JAYJAY Sertraline HCl (Sertraline Hcl 25 Mg Tablet) 25 mg PO DAILY [facility] Last Admin: 07/28/25 08:39 Dose: 25 mg Documented By: JAYJAY Sodium Biphosphate/Sodium Phosphate (Sodium Phosphate,[place]-Dibasic 133 Ml Enema) 133 ml [place] ONCE PRN PRN Reason: Poor Colonoscopy Prep Results Last Admin: 07/22/25 10:59 Dose: 133 ml Documented By: JAYJAY Sodium Biphosphate/Sodium Phosphate (Sodium Phosphate,[place]-Dibasic 133 Ml Enema) 133 ml [place] ONCE PRN PRN Reason: Poor Colonoscopy Prep Results Sodium Chloride (0.9 % Sodium Chloride Flush 3 Ml Syringe) 3 ml IVFLUSH QSHIFT [facility] Last Admin: 07/28/25 19:43 Dose: 3 ml Documented By: ALEXANDER Tramadol HCl (Tramadol Hcl 50 Mg Tablet) 50 mg PO Q6H PRN PRN Reason: Pain, Moderate(Pain Scale 4-6) Last Admin: 07/28/25 15:17 Dose: 50 mg Documented By: JAYJAY Labs 07/29/25 10:00 07/28/25 05:53 Labs: Laboratory Results - last 24 hr 07/28/25 07/28/25 08:23 17:43 C. difficile Tox B Gene NEGATIVE Blood Type A Positive Antibody Screen NEGATIVE Procedures Date of Service Date of Service: 07/30/25 Progress Note: A&P Assessment and plan (1) Rectal mass: Status: Acute Assessment and Plan: He allowed me to do a digital rectal exam morning - mass is palpable within the reach of the index finger, firm, indurated and nonmobile He does not want any procedure today I offered that we can proceed with exam under anesthesia tomorrow and he says that he may go ahead with this tomorrow No further bleeding noted Time Spent With Patient Time: Total time managing care of this patient today ____ minutes. Quality Stroke Does the patient have a stroke diagnosis?: No VTE Prior VTE?: No VTE Risk Level:: Medical - moderate - high VTE Device Contraindication: N/A - Device Ordered VTE Drug Contraindication: Treatment Not Indicated
[2025-07-29 08:00] VITALS: BP 117/57; PULSE 65; RESP 18; TEMP 36.1; O2SAT 98
[2025-07-29] MEDS: 0.9 % Sodium Chloride Flush 3 ML SYRINGE IVFLUSH ×3 (09:29→23:24)
[2025-07-29 10:12] LABS: Hematocrit 26.8 % (42.0-52.0); Hemoglobin 8.4 g/dl (14.0-18.0)
[2025-07-29 12:00] VITALS: BP 115/65; PULSE 66; RESP 18; TEMP 36.4; O2SAT 98
[2025-07-29 12:54] LABS: E. coli EAEC Not Detected (Not Detect.); E. coli EPEC Not Detected (Not Detect.); E. coli ETEC Not Detected (Not Detect.); E. coli STEC Not Detected (Not Detect.); Shigella sp./EIEC Not Detected (Not Detect.)
--- NOTE | 2025-07-29 13:39 | PC.NURSE ---
Patient already had contact precaution protocol in place pending stool sample. Contact precautions remain in place and education provided to patient regarding contact precautions.
--- NOTE | 2025-07-29 14:59 | PC.NURSE ---
Patient's sister and niece came and visited, contact precautions educated to family and proper hand hygiene educated to family with appropriate compliance. Family discussed with patient about biopsy, at this time patient is compliant and wants to have biopsy tomorrow.
[2025-07-29 15:42] VITALS: BP 124/64; PULSE 88; RESP 18; TEMP 36.4; O2SAT 95
--- NOTE | 2025-07-29 15:50 | HO.PM.IMPN ---
Subjective Subjective Date of Service: 07/29/25 Interval History: Rectal mass Review of Systems Diarrhea improving Review of Systems: Yes all other systems are reviewed and are negative Physical Exam Exam: Exam: Appearance: Alert.? Oriented X3.? cvs: rrr, [id number]. res: clear to auscultation ,no rhonchii or wheezing abd: no rebound or guarding ,nt, bs present. ext pulses present , no cyanosis. neuro: axo3 , nonfocal. Vital Signs: Vital Signs: Last Vital Signs Temp 97.5 F 07/29/25 15:42 Pulse 88 07/29/25 15:42 Resp 18 07/29/25 15:42 BP 124/64 07/29/25 15:42 Pulse Ox 95 07/29/25 15:42 O2 Del Method Room Air 07/29/25 15:42 BMI result Body Mass Index 24.8 Objective Data Active Medications Acetaminophen (Acetaminophen 325 Mg Tablet) 975 mg PO Q6H PRN PRN Reason: Pain, Mild 1-3,fever,headache Last Admin: 07/27/25 08:01 Dose: 975 mg Documented By: ROBEL Calcium Carbonate (Calcium Carbonate 750 Mg Tab.Chew) 750 mg PO Q4H PRN PRN Reason: Heartburn Fenofibrate (Fenofibrate 54 Mg Tablet) 54 mg PO DAILY [facility] Last Admin: 07/29/25 09:29 Dose: 54 mg Documented By: GIUSEPPE Lactated Ringer's (Lr) 1,000 mls @ 80 mls/hr IVCONT .[id number] [facility] Loperamide HCl (Loperamide Hcl 2 Mg Capsule) 2 mg PO Q6H PRN PRN Reason: Diarrhea Magnesium Hydroxide (Milk Of Magnesia 30 Ml Oral.Susp) 30 ml PO DAILY PRN PRN Reason: Constipation Melatonin (Melatonin 3 Mg Tablet) 6 mg PO BEDTIME PRN PRN Reason: Insomnia Naloxone HCl (Naloxone Hcl 0.4 Mg/Ml Vial) 0.04 mg IVPUSH Q5M PRN PRN Reason: Excessive sedation or RR < 8 Olanzapine (Olanzapine 10 Mg Tablet) 20 mg PO BEDTIME [facility] Last Admin: 07/28/25 19:43 Dose: 20 mg Documented By: ALEXANDER Ondansetron HCl (Ondansetron Hcl 4 Mg/2 Ml Vial) 4 mg IVPUSH Q8H PRN PRN Reason: Nausea and Vomiting Last Admin: 07/28/25 03:49 Dose: 4 mg Documented By: JAE Oxycodone HCl (Oxycodone Hcl Immed Release 5 Mg Tablet) 5 mg PO Q6H PRN PRN Reason: Pain, Severe (Pain Scale 7-10) Last Admin: 07/29/25 09:32 Dose: 5 mg Documented By: GIUSEPPE Pantoprazole Sodium (Pantoprazole Sodium 40 Mg/10 Ml Vial) 40 mg IVPUSH BID@0630,1630 [facility] Last Admin: 07/29/25 05:42 Dose: 40 mg Documented By: ODRISElieser Pravastatin Sodium (Pravastatin Sodium 40 Mg Tablet) 40 mg PO DAILY [facility] Last Admin: 07/29/25 09:29 Dose: 40 mg Documented By: GIUSEPPE Sertraline HCl (Sertraline Hcl 100 Mg Tablet) 100 mg PO DAILY [facility] Last Admin: 07/29/25 09:29 Dose: 100 mg Documented By: GIUSEPPE Sertraline HCl (Sertraline Hcl 25 Mg Tablet) 25 mg PO DAILY [facility] Last Admin: 07/29/25 09:29 Dose: 25 mg Documented By: GIUSEPPE Sodium Biphosphate/Sodium Phosphate (Sodium Phosphate,[place]-Dibasic 133 Ml Enema) 133 ml [place] ONCE PRN PRN Reason: Poor Colonoscopy Prep Results Last Admin: 07/22/25 10:59 Dose: 133 ml Documented By: JAYJAY Sodium Biphosphate/Sodium Phosphate (Sodium Phosphate,[place]-Dibasic 133 Ml Enema) 133 ml [place] ONCE PRN PRN Reason: Poor Colonoscopy Prep Results Sodium Chloride (0.9 % Sodium Chloride Flush 3 Ml Syringe) 3 ml IVFLUSH [facility] Last Admin: 07/29/25 09:29 Dose: 3 ml Documented By: GIUSEPPE Tramadol HCl (Tramadol Hcl 50 Mg Tablet) 50 mg PO Q6H PRN PRN Reason: Pain, Moderate(Pain Scale 4-6) Last Admin: 07/29/25 13:49 Dose: 50 mg Documented By: COLBURK Labs 07/29/25 10:00 07/28/25 05:53 Labs: Laboratory Results - last 24 hr 07/28/25 07/29/25 17:43 10:28 Stl C. cayetanensis PCR Not Detected Stool Rotavirus A PCR Not Detected Stl Adenov F 40/41 PCR Not Detected Stool Astrovirus (PCR) Not Detected Stool Campylobacter PCR Not Detected Stool Cryptosporidium PCR Not Detected Stl Sh Tox Pr E STEC PCR Not Detected Stool E coli O157 PCR Not applicable Stl Enterotoxigenic E PCR Not Detected Stool EPEC (PCR) Not Detected Stool EAEC (PCR) Not Detected Stl E. histolytica PCR Not Detected Stool Giardia Lamblia PCR Not Detected Stl P. shigelloides PCR Not Detected Stool Salmonella PCR Not Detected Stool Sapovirus (PCR) Not Detected Stl Shigella/EIEC PCR Not Detected St Y.enterocolitica PCR Not Detected Stool Vibrio (PCR) Not Detected Stl Vibrio cholerae PCR Not Detected Stl Norovirus GI/GII PCR Detected A C. difficile Tox B Gene NEGATIVE Assessment and Plan (1) Rectal mass: Status: Acute Assessment and Plan: 70M PMH intellectual disability, hyperlipidemia, schizophrenia, anxiety, diabetes status post right toe amputation, hypertension presented with fall, bright red blood per rectum, found to have severe anemia Acute on chronic blood loss anemia with bright red blood per rectum Hemoglobin improved after 3 units from 4.3 to 7, last h/h 7.9 Plan for colonoscopy 07/22/2025 had no bleeding after prep h/h stable Continue PPI surgery eval noted:Suspicious for rectal adenocarcinoma However path report shows tubulovillous adenoma Patient will need another biopsy Diarrhea: Improving C diff negative, GI P panel pending Right hydronephrosis due to obstructing stone Appears asymptomatic, planning on eventual cysto Acute kidney injury Due to hypoperfusion from anemia Monitored Schizophrenia Olanzapine Diabetes Insulin sliding scale DVT prophylaxis-mechanical due to severe anemia and bright red blood per rectum DNR/DNI reason for continued hospitalization: Working up GI bleed/hemonc eval ,awaiting repeat biopsy Quality Stroke Does the patient have a stroke diagnosis?: No VTE Prior VTE?: No VTE Risk Level:: Medical - moderate - high VTE Device Contraindication: N/A - Device Ordered VTE Drug Contraindication: Treatment Not Indicated
[2025-07-29 19:11] VITALS: BP 103/57; PULSE 77; RESP 18; TEMP 36.1; O2SAT 97
[2025-07-29] MEDS: Lactated Ringers 1,000 ML 80 ML IVCONT (23:24)
[2025-07-29 23:44] VITALS: BP 110/60; PULSE 76; RESP 16; TEMP 36.1; O2SAT 98
[2025-07-30] VITALS (8 sets, daily range): BP systolic 97–122; BP diastolic 52–69; PULSE 66–83; RESP 14–18; TEMP 36–36.9; O2SAT 96–100
--- NOTE | 2025-07-30 08:40 | P.PNGS_ITS ---
Subjective Subjective Date of Service: 07/30/25 Interval history: Denies complaints currently No reported bleeding Physical Exam 2 Vital Signs: Vital Signs: Last Vital Signs Temp 96.9 F 07/30/25 07:46 Pulse 72 07/30/25 07:46 Resp 18 07/30/25 07:46 BP 117/57 L 07/30/25 07:46 Pulse Ox 96 07/30/25 07:46 O2 Del Method Room Air 07/30/25 07:46 BMI result Body Mass Index 24.8 Const: General: comfortable and no acute distress Resp: Effort & Inspection: normal respiratory effort Cardio: Rate: regular rate GI: Palpation (GI): Soft to palpation, not firm and nontender Objective Data Active Medications Acetaminophen (Acetaminophen 325 Mg Tablet) 975 mg PO Q6H PRN PRN Reason: Pain, Mild 1-3,fever,headache Last Admin: 07/27/25 08:01 Dose: 975 mg Documented By: ROBEL Calcium Carbonate (Calcium Carbonate 750 Mg Tab.Chew) 750 mg PO Q4H PRN PRN Reason: Heartburn Fenofibrate (Fenofibrate 54 Mg Tablet) 54 mg PO DAILY [facility] Last Admin: 07/29/25 09:29 Dose: 54 mg Documented By: GIUSEPPE Lactated Ringer's (Lr) 1,000 mls @ 80 mls/hr IVCONT .[id number] [facility] Last Admin: 07/29/25 23:24 Dose: 80 mls/hr Documented By: JOBY Loperamide HCl (Loperamide Hcl 2 Mg Capsule) 2 mg PO Q6H PRN PRN Reason: Diarrhea Magnesium Hydroxide (Milk Of Magnesia 30 Ml Oral.Susp) 30 ml PO DAILY PRN PRN Reason: Constipation Melatonin (Melatonin 3 Mg Tablet) 6 mg PO BEDTIME PRN PRN Reason: Insomnia Last Admin: 07/29/25 20:17 Dose: 6 mg Documented By: JOBY Naloxone HCl (Naloxone Hcl 0.4 Mg/Ml Vial) 0.04 mg IVPUSH Q5M PRN PRN Reason: Excessive sedation or RR < 8 Olanzapine (Olanzapine 10 Mg Tablet) 20 mg PO BEDTIME [facility] Last Admin: 07/29/25 20:17 Dose: 20 mg Documented By: JOBY Ondansetron HCl (Ondansetron Hcl 4 Mg/2 Ml Vial) 4 mg IVPUSH Q8H PRN PRN Reason: Nausea and Vomiting Last Admin: 07/28/25 03:49 Dose: 4 mg Documented By: JAE Oxycodone HCl (Oxycodone Hcl Immed Release 5 Mg Tablet) 5 mg PO Q6H PRN PRN Reason: Pain, Severe (Pain Scale 7-10) Last Admin: 07/29/25 18:44 Dose: 5 mg Documented By: ROLDAN Pantoprazole Sodium (Pantoprazole Sodium 40 Mg/10 Ml Vial) 40 mg IVPUSH BID@0630,1630 [facility] Last Admin: 07/30/25 05:50 Dose: 40 mg Documented By: JOBY Pravastatin Sodium (Pravastatin Sodium 40 Mg Tablet) 40 mg PO DAILY [facility] Last Admin: 07/29/25 09:29 Dose: 40 mg Documented By: BRONamrata Sertraline HCl (Sertraline Hcl 100 Mg Tablet) 100 mg PO DAILY [facility] Last Admin: 07/29/25 09:29 Dose: 100 mg Documented By: GIUSEPPE Sertraline HCl (Sertraline Hcl 25 Mg Tablet) 25 mg PO DAILY [facility] Last Admin: 07/29/25 09:29 Dose: 25 mg Documented By: GIUSEPPE Sodium Biphosphate/Sodium Phosphate (Sodium Phosphate,[place]-Dibasic 133 Ml Enema) 133 ml [place] ONCE PRN PRN Reason: Poor Colonoscopy Prep Results Last Admin: 07/22/25 10:59 Dose: 133 ml Documented By: JAYJAY Sodium Biphosphate/Sodium Phosphate (Sodium Phosphate,[place]-Dibasic 133 Ml Enema) 133 ml [place] ONCE PRN PRN Reason: Poor Colonoscopy Prep Results Sodium Chloride (0.9 % Sodium Chloride Flush 3 Ml Syringe) 3 ml IVFLUSH QSHIFT [facility] Last Admin: 07/29/25 23:24 Dose: 3 ml Documented By: JOBY Tramadol HCl (Tramadol Hcl 50 Mg Tablet) 50 mg PO Q6H PRN PRN Reason: Pain, Moderate(Pain Scale 4-6) Last Admin: 07/29/25 13:49 Dose: 50 mg Documented By: COLBURK Labs 07/29/25 10:00 07/28/25 05:53 Labs: Laboratory Results - last 24 hr 07/29/25 10:28 Stl C. cayetanensis PCR Not Detected Stool Rotavirus A PCR Not Detected Stl Adenov F 40/41 PCR Not Detected Stool Astrovirus (PCR) Not Detected Stool Campylobacter PCR Not Detected Stool Cryptosporidium PCR Not Detected Stl Sh Tox Pr E STEC PCR Not Detected Stool E coli O157 PCR Not applicable Stl Enterotoxigenic E PCR Not Detected Stool EPEC (PCR) Not Detected Stool EAEC (PCR) Not Detected Stl E. histolytica PCR Not Detected Stool Giardia Lamblia PCR Not Detected Stl P. shigelloides PCR Not Detected Stool Salmonella PCR Not Detected Stool Sapovirus (PCR) Not Detected Stl Shigella/EIEC PCR Not Detected St Y.enterocolitica PCR Not Detected Stool Vibrio (PCR) Not Detected Stl Vibrio cholerae PCR Not Detected Stl Norovirus GI/GII PCR Detected A Procedures Date of Service Date of Service: 07/30/25 Progress Note: A&P Assessment and plan (1) Rectal mass: Status: Acute Assessment and Plan: For exam under anesthesia, biopsy of the rectal mass today He understands the technique of the planned procedure He understands the risks including but not limited to bleeding, infections and pain He has given consent I have discussed the plan with his sister Josi who is also the healthcare proxy Time Spent With Patient Time: Total time managing care of this patient today ____ minutes. Quality Stroke Does the patient have a stroke diagnosis?: No VTE Prior VTE?: No VTE Risk Level:: Medical - moderate - high VTE Device Contraindication: N/A - Device Ordered VTE Drug Contraindication: Treatment Not Indicated
--- NOTE | 2025-07-30 10:55 | P.PNIM_ITS ---
Subjective Subjective Date of Service: 07/30/25 Interval History: Rectal mass Review of Systems Diarrhea improving Review of Systems: Yes all other systems are reviewed and are negative Physical Exam 2 Vital Signs: Vital Signs: Last Vital Signs Temp 96.9 F 07/30/25 07:46 Pulse 72 07/30/25 07:46 Resp 18 07/30/25 07:46 BP 117/57 L 07/30/25 07:46 Pulse Ox 96 07/30/25 07:46 O2 Del Method Room Air 07/30/25 07:46 BMI result Body Mass Index 24.8 Const: General: comfortable and no acute distress Resp: Effort & Inspection: normal respiratory effort Cardio: Rate: regular rate GI: Palpation (GI): Soft to palpation, not firm and nontender Objective Data Active Medications Acetaminophen (Acetaminophen 325 Mg Tablet) 975 mg PO Q6H PRN PRN Reason: Pain, Mild 1-3,fever,headache Last Admin: 07/27/25 08:01 Dose: 975 mg Documented By: ROBEL Calcium Carbonate (Calcium Carbonate 750 Mg Tab.Chew) 750 mg PO Q4H PRN PRN Reason: Heartburn Fenofibrate (Fenofibrate 54 Mg Tablet) 54 mg PO DAILY [facility] Last Admin: 07/30/25 09:10 Dose: 54 mg Documented By: LEEROY Lactated Ringer's (Lr) 1,000 mls @ 80 mls/hr IVCONT .[id number] [facility] Last Admin: 07/29/25 23:24 Dose: 80 mls/hr Documented By: JOBY Loperamide HCl (Loperamide Hcl 2 Mg Capsule) 2 mg PO Q6H PRN PRN Reason: Diarrhea Magnesium Hydroxide (Milk Of Magnesia 30 Ml Oral.Susp) 30 ml PO DAILY PRN PRN Reason: Constipation Melatonin (Melatonin 3 Mg Tablet) 6 mg PO BEDTIME PRN PRN Reason: Insomnia Last Admin: 07/29/25 20:17 Dose: 6 mg Documented By: JOBY Naloxone HCl (Naloxone Hcl 0.4 Mg/Ml Vial) 0.04 mg IVPUSH Q5M PRN PRN Reason: Excessive sedation or RR < 8 Olanzapine (Olanzapine 10 Mg Tablet) 20 mg PO BEDTIME [facility] Last Admin: 07/29/25 20:17 Dose: 20 mg Documented By: JOBY Ondansetron HCl (Ondansetron Hcl 4 Mg/2 Ml Vial) 4 mg IVPUSH Q8H PRN PRN Reason: Nausea and Vomiting Last Admin: 07/28/25 03:49 Dose: 4 mg Documented By: JAE Oxycodone HCl (Oxycodone Hcl Immed Release 5 Mg Tablet) 5 mg PO Q6H PRN PRN Reason: Pain, Severe (Pain Scale 7-10) Last Admin: 07/29/25 18:44 Dose: 5 mg Documented By: ROLDAN Pantoprazole Sodium (Pantoprazole Sodium 40 Mg/10 Ml Vial) 40 mg IVPUSH BID@0630,1630 [facility] Last Admin: 07/30/25 05:50 Dose: 40 mg Documented By: JOBY Pravastatin Sodium (Pravastatin Sodium 40 Mg Tablet) 40 mg PO DAILY [facility] Last Admin: 07/30/25 09:10 Dose: 40 mg Documented By: LEEROY Sertraline HCl (Sertraline Hcl 100 Mg Tablet) 100 mg PO DAILY [facility] Last Admin: 07/30/25 09:10 Dose: 100 mg Documented By: LEEROY Sertraline HCl (Sertraline Hcl 25 Mg Tablet) 25 mg PO DAILY [facility] Last Admin: 07/30/25 09:10 Dose: 25 mg Documented By: LEEROY Sodium Biphosphate/Sodium Phosphate (Sodium Phosphate,[place]-Dibasic 133 Ml Enema) 133 ml [place] ONCE PRN PRN Reason: Poor Colonoscopy Prep Results Last Admin: 07/22/25 10:59 Dose: 133 ml Documented By: JAYJAY Sodium Biphosphate/Sodium Phosphate (Sodium Phosphate,[place]-Dibasic 133 Ml Enema) 133 ml [place] ONCE PRN PRN Reason: Poor Colonoscopy Prep Results Sodium Chloride (0.9 % Sodium Chloride Flush 3 Ml Syringe) 3 ml IVFLUSH QSHIFT [facility] Last Admin: 07/30/25 09:05 Dose: Not Given Documented By: LEEROY Non-Admin Reason: IV Running Tramadol HCl (Tramadol Hcl 50 Mg Tablet) 50 mg PO Q6H PRN PRN Reason: Pain, Moderate(Pain Scale 4-6) Last Admin: 07/29/25 13:49 Dose: 50 mg Documented By: COLBURK Labs 07/29/25 10:00 07/28/25 05:53 Labs: Laboratory Results - last 24 hr 07/29/25 10:28 Stl C. cayetanensis PCR Not Detected Stool Rotavirus A PCR Not Detected Stl Adenov F 40/41 PCR Not Detected Stool Astrovirus (PCR) Not Detected Stool Campylobacter PCR Not Detected Stool Cryptosporidium PCR Not Detected Stl Sh Tox Pr E STEC PCR Not Detected Stool E coli O157 PCR Not applicable Stl Enterotoxigenic E PCR Not Detected Stool EPEC (PCR) Not Detected Stool EAEC (PCR) Not Detected Stl E. histolytica PCR Not Detected Stool Giardia Lamblia PCR Not Detected Stl P. shigelloides PCR Not Detected Stool Salmonella PCR Not Detected Stool Sapovirus (PCR) Not Detected Stl Shigella/EIEC PCR Not Detected St Y.enterocolitica PCR Not Detected Stool Vibrio (PCR) Not Detected Stl Vibrio cholerae PCR Not Detected Stl Norovirus GI/GII PCR Detected A Assessment and Plan (1) Rectal mass: Status: Acute Assessment and Plan: 70M PMH intellectual disability, hyperlipidemia, schizophrenia, anxiety, diabetes status post right toe amputation, hypertension presented with fall, bright red blood per rectum, found to have severe anemia Acute on chronic blood loss anemia with bright red blood per rectum Hemoglobin improved after 3 units from 4.3 to 7, last hgb 8.4 s/p colonoscopy 07/22/2025 suspicious for rectal mass, biopsy was negative, but high suspicion so plan for repeat biopsy 07/30/25 Diarrhea: Improving C diff negative, GI P norovirus Right hydronephrosis due to obstructing stone Appears asymptomatic, planning on eventual cysto Acute kidney injury Due to hypoperfusion from anemia resolved Schizophrenia Olanzapine Diabetes Insulin sliding scale DVT prophylaxis-mechanical due to severe anemia and bright red blood per rectum DNR/DNI reason for continued hospitalization: awaiting repeat biopsy Quality Stroke Does the patient have a stroke diagnosis?: No VTE Prior VTE?: No VTE Risk Level:: Medical - moderate - high VTE Device Contraindication: N/A - Device Ordered VTE Drug Contraindication: Treatment Not Indicated
[2025-07-30] MEDS: Lactated Ringers 1,000 ML 100 ML IVCONT (12:07)
--- NOTE | 2025-07-30 12:10 | HO.ANESPROP2 ---
Documented by User: Kaylin Blanca NP 07/29/25 12:26 HPI - Anesthesia Eval Consult details Narrative: 70 yr old male for biopsy of rectal mass Acute anemia 2/2 rectal bleeding: came to [facility] ED 07/20/25 after fall, H/H 4.3/14.0; s/p 4 units PRBCs -Updated labs 07/29/25: H/H 8.4/26.8, platelets 123 -Pt denies further bleeding Intellectual disability PMF Active Problems Active Problems: All Active Problems Rectal mass (Acute) MIGUEL (acute kidney injury) (Acute) ABLA (acute blood loss anemia) (Acute) Hydroureteronephrosis (Acute) Anemia requiring transfusions (Acute) Bright red rectal bleeding (Acute) OAB (overactive bladder) (Acute) HTN (hypertension) (Acute) Status post amputation of toe of right foot (Acute) Type 2 diabetes mellitus without complications (Acute) Anxiety (Acute) Schizophrenia (Acute) HLD (hyperlipidemia) (Acute) Intellectual disability (Acute) Past Medical History Medical History OAB (overactive bladder) HTN (hypertension) Type 2 diabetes mellitus without complications Anxiety Schizophrenia HLD (hyperlipidemia) Intellectual disability Functional capacity: independent ambulation Family History Family history of problems with anesthesia: No Surgical History Surgical History Hx of cholecystectomy Status post amputation of toe of right foot History of Problems with Anesthesia: No Social History Social History Household Members: Other Household Members Other:: [facility] Housing: Retirement Housing Other:: [facility] Patient Tobacco Use Status: Never used Tobacco service: No Meds Allergies Allergy/AdvReac Type Severity Reaction Status Date / Time fluphenazine (From PROLIXIN) Allergy Severe SEIZURES Verified 07/20/25 14:58 proxlin AdvReac Unknown seizures Uncoded 07/20/25 14:58 Active Medications: Current Medications Acetaminophen (Acetaminophen 325 Mg Tablet) 975 mg PO Q6H PRN PRN Reason: Pain, Mild 1-3,fever,headache Last Admin: 07/27/25 08:01 Dose: 975 mg Calcium Carbonate (Calcium Carbonate 750 Mg Tab.Chew) 750 mg PO Q4H PRN PRN Reason: Heartburn Fenofibrate (Fenofibrate 54 Mg Tablet) 54 mg PO DAILY [facility] Last Admin: 07/29/25 09:29 Dose: 54 mg Lactated Ringer's (Lr) 1,000 mls @ 80 mls/hr IVCONT .[id number] [facility] Loperamide HCl (Loperamide Hcl 2 Mg Capsule) 2 mg PO Q6H PRN PRN Reason: Diarrhea Magnesium Hydroxide (Milk Of Magnesia 30 Ml Oral.Susp) 30 ml PO DAILY PRN PRN Reason: Constipation Melatonin (Melatonin 3 Mg Tablet) 6 mg PO BEDTIME PRN PRN Reason: Insomnia Naloxone HCl (Naloxone Hcl 0.4 Mg/Ml Vial) 0.04 mg IVPUSH Q5M PRN PRN Reason: Excessive sedation or RR < 8 Olanzapine (Olanzapine 10 Mg Tablet) 20 mg PO BEDTIME [facility] Last Admin: 07/28/25 19:43 Dose: 20 mg Ondansetron HCl (Ondansetron Hcl 4 Mg/2 Ml Vial) 4 mg IVPUSH Q8H PRN PRN Reason: Nausea and Vomiting Last Admin: 07/28/25 03:49 Dose: 4 mg Oxycodone HCl (Oxycodone Hcl Immed Release 5 Mg Tablet) 5 mg PO Q6H PRN PRN Reason: Pain, Severe (Pain Scale 7-10) Last Admin: 07/29/25 09:32 Dose: 5 mg Pantoprazole Sodium (Pantoprazole Sodium 40 Mg/10 Ml Vial) 40 mg IVPUSH BID@0630,1630 [facility] Last Admin: 07/29/25 05:42 Dose: 40 mg Pravastatin Sodium (Pravastatin Sodium 40 Mg Tablet) 40 mg PO DAILY [facility] Last Admin: 07/29/25 09:29 Dose: 40 mg Sertraline HCl (Sertraline Hcl 100 Mg Tablet) 100 mg PO DAILY [facility] Last Admin: 07/29/25 09:29 Dose: 100 mg Sertraline HCl (Sertraline Hcl 25 Mg Tablet) 25 mg PO DAILY [facility] Last Admin: 07/29/25 09:29 Dose: 25 mg Sodium Biphosphate/Sodium Phosphate (Sodium Phosphate,[place]-Dibasic 133 Ml Enema) 133 ml [place] ONCE PRN PRN Reason: Poor Colonoscopy Prep Results Last Admin: 07/22/25 10:59 Dose: 133 ml Sodium Biphosphate/Sodium Phosphate (Sodium Phosphate,[place]-Dibasic 133 Ml Enema) 133 ml [place] ONCE PRN PRN Reason: Poor Colonoscopy Prep Results Sodium Chloride (0.9 % Sodium Chloride Flush 3 Ml Syringe) 3 ml IVFLUSH QSHIFT [facility] Last Admin: 07/29/25 09:29 Dose: 3 ml Tramadol HCl (Tramadol Hcl 50 Mg Tablet) 50 mg PO Q6H PRN PRN Reason: Pain, Moderate(Pain Scale 4-6) Last Admin: 07/28/25 15:17 Dose: 50 mg Home Medications ?Medication ?Instructions ?Recorded ?Confirmed ?Last Taken ?Type acetaminophen 500 mg tablet 500 mg PO Q6H PRN Pain 07/21/25 07/21/25 Unknown History aluminum-mag hydroxide-simethicone 30 ml PO Q4H PRN GI DISTRESS 07/21/25 07/21/25 Unknown History 200 mg-200 mg-20 mg/5 mL oral susp aspirin 81 mg tablet,delayed 81 mg PO DAILY 07/21/25 07/21/25 Unknown History release fenofibrate 54 mg tablet 54 mg PO DAILY 07/21/25 07/21/25 Unknown History icosapent ethyl 1 gram capsule 1 g PO DAILY 07/21/25 07/21/25 Unknown History (Vascepa) lisinopril 5 mg tablet 5 mg PO DAILY 07/21/25 07/21/25 Unknown History loperamide 2 mg tablet 2 mg PO Q4H PRN Diarrhea 07/21/25 07/21/25 Unknown History lovastatin 40 mg tablet 40 mg PO DAILY 07/21/25 07/21/25 Unknown History magnesium hydroxide 400 mg/5 mL 30 ml PO DAILY PRN Constipation 07/21/25 07/21/25 Unknown History oral suspension (Milk of Magnesia) olanzapine 20 mg tablet 20 mg PO BEDTIME 07/21/25 07/21/25 Unknown History oxybutynin chloride 5 mg tablet 5 mg PO BID 07/21/25 07/21/25 Unknown History sertraline 100 mg tablet 100 mg PO DAILY 07/21/25 07/21/25 Unknown History sertraline 50 mg tablet 25 mg PO DAILY 07/21/25 07/21/25 Unknown History Exam Height,Weight and Vital Signs: Height 6 ft 2 in Weight 87.7 kg Last Vital Signs Temp 96.9 F 07/29/25 08:00 Pulse 65 07/29/25 08:00 Resp 18 07/29/25 08:00 BP 117/57 L 07/29/25 08:00 Pulse Ox 98 07/29/25 08:00 O2 Del Method Room Air 07/29/25 08:00 Pertinent Lab Results Pertinent Lab Results: Laboratory Tests 07/20/25 07/20/25 07/20/25 16:14 17:00 17:06 WBC 6.0 RBC 1.68 L Hgb 4.3 L* Hct 14.0 L* MCV 83.3 MCH 25.6 L MCHC 30.7 L RDW 15.1 Plt Count 169 MPV 11.4 Immature Gran % (Auto) 0.8 H Neut % (Auto) 79.1 H Lymph % (Auto) 13.1 L [place] % (Auto) 6.8 Eos % (Auto) 0.0 Baso % (Auto) 0.2 Lymph # (Auto) 0.8 L [place] # (Auto) 0.4 Eos # (Auto) 0.0 Baso # (Auto) 0.0 Abs Immat Gran (auto) 0.05 H Absolute Neuts (auto) 4.8 Absolute Nucleated RBC 0.000 Nucleated RBC % (auto) 0.0 Smear Path Review SEE NOTE PT INR Sodium 144 Potassium 3.9 Chloride 116 H Carbon Dioxide 21 L Anion Gap 11 L BUN 22 H Creatinine 1.53 H Estim Creat Clear Calc 52.2 Estimated GFR 45 Random Glucose 119 H Estimat Average Glucose Hemoglobin A1c % Calcium 8.2 L Magnesium 2.1 Iron 13 L TIBC 323 % Saturation 4 L Unsat Iron Binding 310 Ferritin 6 L Total Bilirubin 0.1 AST 23 ALT 16 Alkaline Phosphatase 35 L Lactate Dehydrogenase Total Protein 5.9 L Albumin 4.0 Carcinoembryonic Ag Urine Color Yellow Urine Appearance Clear Urine pH 7.0 Ur Specific [place] 1.015 Urine Protein Negative Urine Glucose (UA) Negative Urine Ketones Negative Urine Blood Negative Urine Nitrite Negative Ur Leukocyte Esterase Trace H Urine RBC 0-2 Urine WBC 0-5 Ur Squamous Epith Cells 0-2 Urine Bacteria None Seen Hyaline Casts 0-2 Stool Occult Blood POSITIVE C. difficile Tox B Gene Influenza Type A (PCR) NEGATIVE Influenza Type B (PCR) NEGATIVE RSV RNA Qual (PCR) NEGATIVE SARS-CoV-2 RNA (RT-PCR) NEGATIVE Blood Type A Negative Antibody Screen NEGATIVE Crossmatch See Detail 07/20/25 07/21/25 07/21/25 20:36 00:58 04:58 WBC 5.5 6.6 7.3 RBC 1.77 L 2.15 L D 2.47 L Hgb 4.7 L* 5.9 L* D 7.0 L* Hct 15.2 L* 18.9 L* D 21.8 L MCV 85.9 87.9 88.3 MCH 26.6 L 27.4 28.3 MCHC 30.9 L 31.2 32.1 RDW 15.5 16.2 H 15.5 Plt Count 132 L 140 L 146 L MPV 11.2 11.6 11.4 Immature Gran % (Auto) 0.4 0.3 Neut % (Auto) 76.5 H 76.1 H Lymph % (Auto) 14.1 L 13.9 L [place] % (Auto) 8.8 9.4 Eos % (Auto) 0.0 0.0 Baso % (Auto) 0.2 0.3 Lymph # (Auto) 0.8 L 0.9 L [place] # (Auto) 0.5 0.6 Eos # (Auto) 0.0 0.0 Baso # (Auto) 0.0 0.0 Abs Immat Gran (auto) 0.02 0.02 Absolute Neuts (auto) 4.2 5.0 Absolute Nucleated RBC 0.000 0.000 0.000 Nucleated RBC % (auto) 0.0 0.0 0.0 Smear Path Review PT 14.1 H INR 1.2 H Sodium 143 Potassium 4.2 Chloride 118 H Carbon Dioxide 20 L Anion Gap 9 L BUN 20 H Creatinine 1.24 Estim Creat Clear Calc 64.4 Estimated GFR 58 Random Glucose 106 Estimat Average Glucose TNP Hemoglobin A1c % TNP Calcium 8.1 L Magnesium Iron TIBC % Saturation Unsat Iron Binding Ferritin Total Bilirubin AST ALT Alkaline Phosphatase Lactate Dehydrogenase Total Protein Albumin Carcinoembryonic Ag Urine Color Urine Appearance Urine pH Ur Specific [place] Urine Protein Urine Glucose (UA) Urine Ketones Urine Blood Urine Nitrite Ur Leukocyte Esterase Urine RBC Urine WBC Ur Squamous Epith Cells Urine Bacteria Hyaline Casts Stool Occult Blood C. difficile Tox B Gene Influenza Type A (PCR) Influenza Type B (PCR) RSV RNA Qual (PCR) SARS-CoV-2 RNA (RT-PCR) Blood Type Antibody Screen Crossmatch 07/21/25 07/22/25 07/23/25 09:33 06:40 06:27 WBC 4.7 L 4.4 L RBC 2.71 L 2.72 L Hgb 7.5 L 7.9 L 7.9 L Hct 23.3 L 24.1 L 24.1 L MCV 88.9 88.6 MCH 29.2 29.0 MCHC 32.8 32.8 RDW 15.9 16.2 H Plt Count 141 L 135 L MPV 11.2 11.3 Immature Gran % (Auto) Neut % (Auto) Lymph % (Auto) [place] % (Auto) Eos % (Auto) Baso % (Auto) Lymph # (Auto) [place] # (Auto) Eos # (Auto) Baso # (Auto) Abs Immat Gran (auto) Absolute Neuts (auto) Absolute Nucleated RBC 0.000 0.000 Nucleated RBC % (auto) 0.0 0.0 Smear Path Review PT INR Sodium 144 142 Potassium 3.8 3.7 Chloride 116 H 115 H Carbon Dioxide 21 L 22 Anion Gap 11 L 9 L BUN 17 H 15 Creatinine 0.99 1.01 Estim Creat Clear Calc 80.7 79.1 Estimated GFR > 60 > 60 Random Glucose 92 90 Estimat Average Glucose Hemoglobin A1c % Calcium 7.9 L 7.9 L Magnesium Iron TIBC % Saturation Unsat Iron Binding Ferritin Total Bilirubin AST ALT Alkaline Phosphatase Lactate Dehydrogenase 132 Total Protein Albumin Carcinoembryonic Ag 10.90 Urine Color Urine Appearance Urine pH Ur Specific [place] Urine Protein Urine Glucose (UA) Urine Ketones Urine Blood Urine Nitrite Ur Leukocyte Esterase Urine RBC Urine WBC Ur Squamous Epith Cells Urine Bacteria Hyaline Casts Stool Occult Blood C. difficile Tox B Gene Influenza Type A (PCR) Influenza Type B (PCR) RSV RNA Qual (PCR) SARS-CoV-2 RNA (RT-PCR) Blood Type Antibody Screen Crossmatch 07/28/25 07/28/25 07/28/25 05:53 08:23 17:43 WBC 4.5 L RBC 2.65 L Hgb 7.3 L Hct 23.5 L MCV 88.7 MCH 27.5 MCHC 31.1 RDW 15.6 Plt Count 123 L MPV 12.1 Immature Gran % (Auto) Neut % (Auto) Lymph % (Auto) [place] % (Auto) Eos % (Auto) Baso % (Auto) Lymph # (Auto) [place] # (Auto) Eos # (Auto) Baso # (Auto) Abs Immat Gran (auto) Absolute Neuts (auto) Absolute Nucleated RBC 0.000 Nucleated RBC % (auto) 0.0 Smear Path Review PT INR Sodium 142 Potassium 4.0 Chloride 114 H Carbon Dioxide 22 Anion Gap 10 L BUN 12 Creatinine 0.98 Estim Creat Clear Calc 81.5 Estimated GFR > 60 Random Glucose 101 Estimat Average Glucose Hemoglobin A1c % Calcium 8.2 L Magnesium Iron TIBC % Saturation Unsat Iron Binding Ferritin Total Bilirubin AST ALT Alkaline Phosphatase Lactate Dehydrogenase Total Protein Albumin Carcinoembryonic Ag Urine Color Urine Appearance Urine pH Ur Specific [place] Urine Protein Urine Glucose (UA) Urine Ketones Urine Blood Urine Nitrite Ur Leukocyte Esterase Urine RBC Urine WBC Ur Squamous Epith Cells Urine Bacteria Hyaline Casts Stool Occult Blood C. difficile Tox B Gene NEGATIVE Influenza Type A (PCR) Influenza Type B (PCR) RSV RNA Qual (PCR) SARS-CoV-2 RNA (RT-PCR) Blood Type A Positive Antibody Screen NEGATIVE Crossmatch 07/29/25 10:00 WBC RBC Hgb 8.4 L Hct 26.8 L MCV MCH MCHC RDW Plt Count MPV Immature Gran % (Auto) Neut % (Auto) Lymph % (Auto) [place] % (Auto) Eos % (Auto) Baso % (Auto) Lymph # (Auto) [place] # (Auto) Eos # (Auto) Baso # (Auto) Abs Immat Gran (auto) Absolute Neuts (auto) Absolute Nucleated RBC Nucleated RBC % (auto) Smear Path Review PT INR Sodium Potassium Chloride Carbon Dioxide Anion Gap BUN Creatinine Estim Creat Clear Calc Estimated GFR Random Glucose Estimat Average Glucose Hemoglobin A1c % Calcium Magnesium Iron TIBC % Saturation Unsat Iron Binding Ferritin Total Bilirubin AST ALT Alkaline Phosphatase Lactate Dehydrogenase Total Protein Albumin Carcinoembryonic Ag Urine Color Urine Appearance Urine pH Ur Specific [place] Urine Protein Urine Glucose (UA) Urine Ketones Urine Blood Urine Nitrite Ur Leukocyte Esterase Urine RBC Urine WBC Ur Squamous Epith Cells Urine Bacteria Hyaline Casts Stool Occult Blood C. difficile Tox B Gene Influenza Type A (PCR) Influenza Type B (PCR) RSV RNA Qual (PCR) SARS-CoV-2 RNA (RT-PCR) Blood Type Antibody Screen Crossmatch Narrative Narrative: EKG 07/2025 Vent. Rate : 89 BPM Atrial Rate : 89 BPM P-R Int : 140 ms QRS Dur : 96 ms QT Int : 368 ms P-R-T Axes : 50 27 43 degrees QTcB Int : 447 ms Normal sinus rhythm Normal ECG When compared with ECG of 19-Jan-2014 09:49, No significant change was found Assessment and Plan Final Anesthetic Review Family History of Problems with Anesthesia: No History of Problems with Anesthesia: No Documented by User: Maddy Tinsley, 07/30/25 12:12 [facility] Past Medical History Medical History OAB (overactive bladder) HTN (hypertension) Type 2 diabetes mellitus without complications Anxiety Schizophrenia HLD (hyperlipidemia) Intellectual disability Family History Family history of problems with anesthesia: No Surgical History Surgical History Hx of cholecystectomy Status post amputation of toe of right foot History of Problems with Anesthesia: No Social History Social History Household Members: Other Household Members Other:: [facility] Housing: Retirement Housing Other:: [facility] Patient Tobacco Use Status: Never used Tobacco service: No Meds Allergies Allergy/AdvReac Type Severity Reaction Status Date / Time fluphenazine (From PROLIXIN) Allergy Severe SEIZURES Verified 07/20/25 14:58 proxlin AdvReac Unknown seizures Uncoded 07/20/25 14:58 Home Medications ?Medication ?Instructions ?Recorded ?Confirmed ?Last Taken ?Type acetaminophen 500 mg tablet 500 mg PO Q6H PRN Pain 07/21/25 07/21/25 Unknown History aluminum-mag hydroxide-simethicone 30 ml PO Q4H PRN GI DISTRESS 07/21/25 07/21/25 Unknown History 200 mg-200 mg-20 mg/5 mL oral susp aspirin 81 mg tablet,delayed 81 mg PO DAILY 07/21/25 07/21/25 Unknown History release fenofibrate 54 mg tablet 54 mg PO DAILY 07/21/25 07/21/25 Unknown History icosapent ethyl 1 gram capsule 1 g PO DAILY 07/21/25 07/21/25 Unknown History (Vascepa) lisinopril 5 mg tablet 5 mg PO DAILY 07/21/25 07/21/25 Unknown History loperamide 2 mg tablet 2 mg PO Q4H PRN Diarrhea 07/21/25 07/21/25 Unknown History lovastatin 40 mg tablet 40 mg PO DAILY 07/21/25 07/21/25 Unknown History magnesium hydroxide 400 mg/5 mL 30 ml PO DAILY PRN Constipation 07/21/25 07/21/25 Unknown History oral suspension (Milk of Magnesia) olanzapine 20 mg tablet 20 mg PO BEDTIME 07/21/25 07/21/25 Unknown History oxybutynin chloride 5 mg tablet 5 mg PO BID 07/21/25 07/21/25 Unknown History sertraline 100 mg tablet 100 mg PO DAILY 07/21/25 07/21/25 Unknown History sertraline 50 mg tablet 25 mg PO DAILY 07/21/25 07/21/25 Unknown History Exam Exam Date and Time: 07/30/25 1200 Height,Weight and Vital Signs: Height 6 ft 2 in Weight 87.7 kg Last Vital Signs Temp 96.9 F 07/29/25 08:00 Pulse 65 07/29/25 08:00 Resp 18 07/29/25 08:00 BP 117/57 L 07/29/25 08:00 Pulse Ox 98 07/29/25 08:00 O2 Del Method Room Air 07/29/25 08:00 Vital Signs Temperature 97.8 F 07/20/25 14:50 Pulse Rate 97 07/20/25 14:50 Respiratory Rate 18 07/20/25 14:50 Blood Pressure 122/62 07/20/25 14:50 Pulse Oximetry 94 07/20/25 14:50 Oxygen Delivery Method Room Air 07/20/25 14:50 Temperature 98.5 F 07/30/25 11:52 Pulse Rate 71 07/30/25 11:52 Respiratory Rate 18 07/30/25 11:52 Blood Pressure 120/69 07/30/25 11:52 Pulse Oximetry 96 07/30/25 11:52 Oxygen Delivery Method Room Air 07/30/25 11:52 Airway Mallampati Class: II TM Dist: >3cm Neck ROM: Full Loose/Missing/Broken Teeth: Yes (poor dentition - multiple missing and broken teeth) Heart: S1S2 Lungs: CTAB Assessment and Plan Assessment Anesthesia Assessment: Anesthesia Plan Discussed and Chart Reviewed Final Anesthetic Review Family History of Problems with Anesthesia: No History of Problems with Anesthesia: No NPO: Yes ASA Class: III Final Preanesthetic Review: No Changes in Pt Med Stat, Meds/Allgs Chart Reviewed, Consent Obtained/Reviewed (phone consent with Josi Juares - sister and HCP), Anes Risks/Benef Reviewed and DNR Form (If Appl.) (DNR/DNI suspended until discharge from PACU) Patient Risk: Intermediate Procedure Risk: Low Anesthetic Plan Anesthetic Plan: MAC: and Agree w/ Assess. and Plan Disposition: Standard PACU
--- NOTE | 2025-07-30 12:36 | W.PM.OPN ---
Operative Note Operative Note Date of Service: 07/30/25 Narrative: Preop diagnosis: Rectal mass Postop diagnosis: The same Procedure: Exam under anesthesia, biopsy of rectal mass Surgeon: Jefferson Anderson MD The patient is a 70-year-old male who had a colonoscopy showing a large rectal mass near the anal canal. Biopsy showed tubulovillous adenoma. However the overall appearance was suspicious for an invasive adenocarcinoma so I was asked to repeat the biopsy. He understood the technique of the planned procedure. He was aware of the risks, benefits, and alternatives He was brought to the operating room. He was placed in left lateral decubitus position under monitored anesthesia care. A surgical time-out was done Examination of the anal orifice showed external hemorrhoids. I inserted the anoscope gently and examined the anal canal. Right at the distal rectum in the proximal anal canal was note of a large mass appeared to be very friable. This seemed to be on the left side and left procedure areas. Biopsies of these were done using forceps and Metzenbaum scissors. We then applied Gelfoam packing into the anal canal for hemostasis. The procedure was completed He tolerated procedure well. He was then transferred to the recovery room with stable vital signs. There was minimal blood loss.
[2025-07-30] MEDS: Lactated Ringers 1,000 ML 80 ML IVCONT ×2 (13:56→23:01)
--- NOTE | 2025-07-30 15:18 | MHC.CM.PN ---
Patient went to the OR today for a rectal mass biopsy. Patient is not cleared to discharge. DP return home to [facility]. Transportation will be provided by the patients sister.
[2025-07-31] VITALS: BP 130/60; PULSE 79; RESP 18; TEMP 36.5; O2SAT 98
[2025-07-31 04:00] VITALS: BP 107/52; PULSE 72; RESP 17; TEMP 36.2; O2SAT 97
[2025-07-31 06:14] LABS: Hematocrit 24.7 % (42.0-52.0); Hemoglobin 7.8 g/dl (14.0-18.0); Mean Corpuscular HGB Conc 31.6 g/dl (31.0-36.0); Mean Corpuscular Hemoglobin 26.8 pg (27.0-33.0); Mean Corpuscular Volume 84.9 fL (80.0-98.0); NRBC Abs Auto 0.000 X10*3/uL (0.0-0.012); NRBC Pct Auto 0.0 /100WBC (0.0-0.2); Platelet Count 133 X10*3/uL (160-400); Red Blood Count 2.91 X10*6/uL (4.60-5.80); White Blood Count 4.9 X10*3/uL (4.8-10.8)
[2025-07-31 06:27] LABS: Anion Gap 11 (12-20); Blood Urea Nitrogen 13 mg/dL (9-16); Calcium 8.2 mg/dL (8.4-10.2); Carbon Dioxide 21 mmol/L (22-29); Chloride 115 mmol/L (96-108); Creatinine Clr Calc Pharmacy 79.1; Estimated Glomerular Filt Rate > 60; Potassium 4.0 mmol/L (3.3-5.1); Sodium 143 mmol/L (135-145)
[2025-07-31 07:34] VITALS: BP 141/70; PULSE 74; RESP 18; TEMP 36.1; O2SAT 98
--- NOTE | 2025-07-31 09:37 | HO.PM.IMPN ---
Subjective Subjective Date of Service: 07/31/25 Interval History: Rectal mass Review of Systems Diarrhea improving Review of Systems: Yes all other systems are reviewed and are negative Physical Exam Vital Signs: Vital Signs: Last Vital Signs Temp 96.9 F 07/31/25 07:34 Pulse 74 07/31/25 07:34 Resp 18 07/31/25 07:34 BP 141/70 H 07/31/25 07:34 Pulse Ox 98 07/31/25 07:34 O2 Del Method Room Air 07/31/25 07:34 O2 Flow Rate 6 07/30/25 12:41 BMI result Body Mass Index 24.8 Const: General: comfortable and no acute distress Resp: Effort & Inspection: normal respiratory effort Cardio: Rate: regular rate GI: Palpation (GI): Soft to palpation, not firm and nontender Objective Data Active Medications Acetaminophen (Acetaminophen 325 Mg Tablet) 975 mg PO Q6H PRN PRN Reason: Pain, Mild 1-3,fever,headache Last Admin: 07/27/25 08:01 Dose: 975 mg Documented By: ROBEL Calcium Carbonate (Calcium Carbonate 750 Mg Tab.Chew) 750 mg PO Q4H PRN PRN Reason: Heartburn Fenofibrate (Fenofibrate 54 Mg Tablet) 54 mg PO DAILY [facility] Last Admin: 07/30/25 09:10 Dose: 54 mg Documented By: LEEROY Lactated Ringer's (Lr) 1,000 mls @ 80 mls/hr IVCONT .[id number] [facility] Last Admin: 07/30/25 23:01 Dose: 80 mls/hr Documented By: EVERARDO Loperamide HCl (Loperamide Hcl 2 Mg Capsule) 2 mg PO Q6H PRN PRN Reason: Diarrhea Magnesium Hydroxide (Milk Of Magnesia 30 Ml Oral.Susp) 30 ml PO DAILY PRN PRN Reason: Constipation Melatonin (Melatonin 3 Mg Tablet) 6 mg PO BEDTIME PRN PRN Reason: Insomnia Last Admin: 07/29/25 20:17 Dose: 6 mg Documented By: JOBY Naloxone HCl (Naloxone Hcl 0.4 Mg/Ml Vial) 0.04 mg IVPUSH Q5M PRN PRN Reason: Excessive sedation or RR < 8 Naloxone HCl (Naloxone Hcl 0.4 Mg/Ml Vial) 0.04 mg IVPUSH Q5M PRN PRN Reason: Excessive sedation or RR < 8 Olanzapine (Olanzapine 10 Mg Tablet) 20 mg PO BEDTIME [facility] Last Admin: 07/30/25 20:42 Dose: 20 mg Documented By: EVERARDO Ondansetron HCl (Ondansetron Hcl 4 Mg/2 Ml Vial) 4 mg IVPUSH Q8H PRN PRN Reason: Nausea and Vomiting Last Admin: 07/28/25 03:49 Dose: 4 mg Documented By: JAE Oxycodone HCl (Oxycodone Hcl Immed Release 5 Mg Tablet) 5 mg PO Q6H PRN PRN Reason: Pain, Severe (Pain Scale 7-10) Last Admin: 07/29/25 18:44 Dose: 5 mg Documented By: ROLDAN Pantoprazole Sodium (Pantoprazole Sodium 40 Mg/10 Ml Vial) 40 mg IVPUSH BID@0630,1630 [facility] Last Admin: 07/31/25 05:24 Dose: 40 mg Documented By: EVERARDO Pravastatin Sodium (Pravastatin Sodium 40 Mg Tablet) 40 mg PO DAILY [facility] Last Admin: 07/30/25 09:10 Dose: 40 mg Documented By: LEEROY Sertraline HCl (Sertraline Hcl 100 Mg Tablet) 100 mg PO DAILY [facility] Last Admin: 07/30/25 09:10 Dose: 100 mg Documented By: LEEROY Sertraline HCl (Sertraline Hcl 25 Mg Tablet) 25 mg PO DAILY [facility] Last Admin: 07/30/25 09:10 Dose: 25 mg Documented By: LEEROY Sodium Biphosphate/Sodium Phosphate (Sodium Phosphate,[place]-Dibasic 133 Ml Enema) 133 ml [place] ONCE PRN PRN Reason: Poor Colonoscopy Prep Results Last Admin: 07/22/25 10:59 Dose: 133 ml Documented By: JAYJAY Sodium Biphosphate/Sodium Phosphate (Sodium Phosphate,[place]-Dibasic 133 Ml Enema) 133 ml [place] ONCE PRN PRN Reason: Poor Colonoscopy Prep Results Sodium Chloride (0.9 % Sodium Chloride Flush 3 Ml Syringe) 3 ml IVFLUSH QSHIFT [facility] Last Admin: 07/30/25 20:42 Dose: Not Given Documented By: EVERARDO Non-Admin Reason: IV Running Tramadol HCl (Tramadol Hcl 50 Mg Tablet) 50 mg PO Q6H PRN PRN Reason: Pain, Moderate(Pain Scale 4-6) Last Admin: 07/29/25 13:49 Dose: 50 mg Documented By: JEFF Labs 07/31/25 06:03 07/31/25 06:03 Labs: Laboratory Results - last 24 hr 07/31/25 06:03 MCV 84.9 MCH 26.8 L MCHC 31.6 RDW 15.5 Plt Count 133 L MPV 11.8 Absolute Nucleated RBC 0.000 Nucleated RBC % (auto) 0.0 Anion Gap 11 L Estim Creat Clear Calc 79.1 Estimated GFR > 60 Random Glucose 106 Calcium 8.2 L Assessment and Plan (1) Rectal mass: Status: Acute Assessment and Plan: 70M PMH intellectual disability, hyperlipidemia, schizophrenia, anxiety, diabetes status post right toe amputation, hypertension presented with fall, bright red blood per rectum, found to have severe anemia Acute on chronic blood loss anemia with bright red blood per rectum Hemoglobin improved after 3 units from 4.3 to 7, last hgb 8.4 s/p colonoscopy 07/22/2025 suspicious for rectal mass, biopsy was negative, but high suspicion underwent repeat biopsy 07/30/25 Diarrhea: Improving C diff negative, GI P norovirus Right hydronephrosis due to obstructing stone Appears asymptomatic, planning on eventual cysto Acute kidney injury Due to hypoperfusion from anemia resolved Schizophrenia Olanzapine Diabetes Insulin sliding scale DVT prophylaxis-mechanical due to severe anemia and bright red blood per rectum DNR/DNI reason for continued hospitalization: ?cysto prior to discharge Quality Stroke Does the patient have a stroke diagnosis?: No VTE Prior VTE?: No VTE Risk Level:: Medical - moderate - high VTE Device Contraindication: N/A - Device Ordered VTE Drug Contraindication: Treatment Not Indicated
[2025-07-31] MEDS: Lactated Ringers 1,000 ML 80 ML IVCONT (10:18)
[2025-07-31 11:58] VITALS: BP 117/73; PULSE 76; RESP 18; TEMP 36.4; O2SAT 96
--- NOTE | 2025-07-31 15:11 | PM.EVENT ---
Event Note Date of Service: 08/01/25 Event Note: No further bleeding Good pain control Tolerating diet Passing flatus The rest of care as per the hospitalist service Await path report Time Spent With Patient Time: Total time managing care of this patient today ____ minutes.
[2025-07-31 15:25] VITALS: BP 136/59; PULSE 89; RESP 16; TEMP 36.3; O2SAT 99
[2025-07-31] MEDS: oxyCODONE HCl Immed Release 5 MG TABLET PO (17:44)
[2025-07-31] MEDS: 0.9 % Sodium Chloride Flush 3 ML SYRINGE IVFLUSH ×2 (17:52→21:45)
[2025-07-31 20:00] VITALS: BP 112/53; PULSE 81; RESP 18; TEMP 36.7; O2SAT 97
[2025-08-01] VITALS (7 sets, daily range): BP systolic 98–127; BP diastolic 55–67; PULSE 68–93; RESP 18; TEMP 36.1–36.8; O2SAT 94–100
[2025-08-01] MEDS: 0.9 % Sodium Chloride Flush 3 ML SYRINGE IVFLUSH ×3 (08:17→20:38)
[2025-08-01] MEDS: oxyCODONE HCl Immed Release 5 MG TABLET PO ×2 (08:25→14:44)
--- NOTE | 2025-08-01 09:26 | P.PNIM_ITS ---
Subjective Subjective Date of Service: 08/01/25 Interval History: no new complaints Physical Exam 2 Vital Signs: Vital Signs: Last Vital Signs Temp 97.3 F 08/01/25 07:40 Pulse 68 08/01/25 07:40 Resp 18 08/01/25 07:40 BP 124/64 08/01/25 07:40 Pulse Ox 98 08/01/25 07:40 O2 Del Method Room Air 08/01/25 07:40 O2 Flow Rate 6 07/30/25 12:41 BMI result Body Mass Index 24.8 Const: General: comfortable and no acute distress Resp: Effort & Inspection: normal respiratory effort Cardio: Rate: regular rate GI: Palpation (GI): Soft to palpation, not firm and nontender Objective Data Active Medications Acetaminophen (Acetaminophen 325 Mg Tablet) 975 mg PO Q6H PRN PRN Reason: Pain, Mild 1-3,fever,headache Last Admin: 07/27/25 08:01 Dose: 975 mg Documented By: ROBEL Calcium Carbonate (Calcium Carbonate 750 Mg Tab.Chew) 750 mg PO Q4H PRN PRN Reason: Heartburn Fenofibrate (Fenofibrate 54 Mg Tablet) 54 mg PO DAILY [facility] Last Admin: 08/01/25 08:17 Dose: 54 mg Documented By: DEVIN Loperamide HCl (Loperamide Hcl 2 Mg Capsule) 2 mg PO Q6H PRN PRN Reason: Diarrhea Magnesium Hydroxide (Milk Of Magnesia 30 Ml Oral.Susp) 30 ml PO DAILY PRN PRN Reason: Constipation Melatonin (Melatonin 3 Mg Tablet) 6 mg PO BEDTIME PRN PRN Reason: Insomnia Last Admin: 07/29/25 20:17 Dose: 6 mg Documented By: JOBY Naloxone HCl (Naloxone Hcl 0.4 Mg/Ml Vial) 0.04 mg IVPUSH Q5M PRN PRN Reason: Excessive sedation or RR < 8 Naloxone HCl (Naloxone Hcl 0.4 Mg/Ml Vial) 0.04 mg IVPUSH Q5M PRN PRN Reason: Excessive sedation or RR < 8 Olanzapine (Olanzapine 10 Mg Tablet) 20 mg PO BEDTIME [facility] Last Admin: 07/31/25 21:44 Dose: 20 mg Documented By: EVERARDO Ondansetron HCl (Ondansetron Hcl 4 Mg/2 Ml Vial) 4 mg IVPUSH Q8H PRN PRN Reason: Nausea and Vomiting Last Admin: 07/28/25 03:49 Dose: 4 mg Documented By: JAE Oxycodone HCl (Oxycodone Hcl Immed Release 5 Mg Tablet) 5 mg PO Q6H PRN PRN Reason: Pain, Severe (Pain Scale 7-10) Last Admin: 08/01/25 08:25 Dose: 5 mg Documented By: DEVIN Pantoprazole Sodium (Pantoprazole Sodium 40 Mg/10 Ml Vial) 40 mg IVPUSH BID@0630,1630 [facility] Last Admin: 08/01/25 05:53 Dose: 40 mg Documented By: EVERARDO Pravastatin Sodium (Pravastatin Sodium 40 Mg Tablet) 40 mg PO DAILY [facility] Last Admin: 08/01/25 08:17 Dose: 40 mg Documented By: DEVIN Sertraline HCl (Sertraline Hcl 100 Mg Tablet) 100 mg PO DAILY [facility] Last Admin: 08/01/25 08:17 Dose: 100 mg Documented By: DEVIN Sertraline HCl (Sertraline Hcl 25 Mg Tablet) 25 mg PO DAILY [facility] Last Admin: 08/01/25 08:17 Dose: 25 mg Documented By: DEVIN Sodium Biphosphate/Sodium Phosphate (Sodium Phosphate,[place]-Dibasic 133 Ml Enema) 133 ml [place] ONCE PRN PRN Reason: Poor Colonoscopy Prep Results Last Admin: 07/22/25 10:59 Dose: 133 ml Documented By: JAYJAY Sodium Biphosphate/Sodium Phosphate (Sodium Phosphate,[place]-Dibasic 133 Ml Enema) 133 ml [place] ONCE PRN PRN Reason: Poor Colonoscopy Prep Results Sodium Chloride (0.9 % Sodium Chloride Flush 3 Ml Syringe) [address] [facility] Last Admin: 08/01/25 08:17 Dose: 3 ml Documented By: DEVIN Tramadol HCl (Tramadol Hcl 50 Mg Tablet) 50 mg PO Q6H PRN PRN Reason: Pain, Moderate(Pain Scale 4-6) Last Admin: 07/29/25 13:49 Dose: 50 mg Documented By: COLBURK Labs 07/31/25 06:03 07/31/25 06:03 Assessment and Plan (1) Rectal mass: Status: Acute Assessment and Plan: 70M PMH intellectual disability, hyperlipidemia, schizophrenia, anxiety, diabetes status post right toe amputation, hypertension presented with fall, bright red blood per rectum, found to have severe anemia Acute on chronic blood loss anemia with bright red blood per rectum Hemoglobin improved after 3 units from 4.3 to 7, last hgb 8.4 s/p colonoscopy 07/22/2025 suspicious for rectal mass, biopsy was negative, but high suspicion underwent repeat biopsy 07/30/25 Diarrhea: Improving C diff negative, GI P norovirus Right hydronephrosis due to obstructing stone Appears asymptomatic, planning on inpatient cysto Acute kidney injury Due to hypoperfusion from anemia resolved Schizophrenia Olanzapine Diabetes Insulin sliding scale DVT prophylaxis-mechanical due to severe anemia and bright red blood per rectum DNR/DNI reason for continued hospitalization: cysto prior to discharge Quality Stroke Does the patient have a stroke diagnosis?: No VTE Prior VTE?: No VTE Risk Level:: Medical - moderate - high VTE Device Contraindication: N/A - Device Ordered VTE Drug Contraindication: Treatment Not Indicated
--- NOTE | 2025-08-01 15:20 | MHC.CM.PN ---
Per MD rounds No discharge today. Patient is planned for a Cystoscopy. DP return to [facility]. May need assist with transport.
[2025-08-02 03:52] VITALS: BP 124/58; PULSE 78; RESP 16; TEMP 36.4; O2SAT 96
[2025-08-02 07:58] VITALS: BP 134/63; PULSE 75; RESP 16; TEMP 36.3; O2SAT 99
[2025-08-02] MEDS: 0.9 % Sodium Chloride Flush 3 ML SYRINGE IVFLUSH ×3 (08:58→20:24)
[2025-08-02] MEDS: oxyCODONE HCl Immed Release 5 MG TABLET PO ×2 (08:59→15:20)
--- NOTE | 2025-08-02 09:34 | P.PNIM_ITS ---
Subjective Subjective Date of Service: 08/02/25 Interval History: no new complaints Physical Exam 2 Vital Signs: Vital Signs: Last Vital Signs Temp 97.4 F 08/02/25 07:58 Pulse 75 08/02/25 07:58 Resp 16 08/02/25 07:58 BP 134/63 08/02/25 07:58 Pulse Ox 99 08/02/25 07:58 O2 Del Method Room Air 08/02/25 07:58 O2 Flow Rate 6 07/30/25 12:41 BMI result Body Mass Index 24.8 Const: General: comfortable and no acute distress Resp: Effort & Inspection: normal respiratory effort Cardio: Rate: regular rate GI: Palpation (GI): Soft to palpation, not firm and nontender Objective Data Active Medications Acetaminophen (Acetaminophen 325 Mg Tablet) 975 mg PO Q6H PRN PRN Reason: Pain, Mild 1-3,fever,headache Last Admin: 07/27/25 08:01 Dose: 975 mg Documented By: ROBEL Calcium Carbonate (Calcium Carbonate 750 Mg Tab.Chew) 750 mg PO Q4H PRN PRN Reason: Heartburn Fenofibrate (Fenofibrate 54 Mg Tablet) 54 mg PO DAILY [facility] Last Admin: 08/02/25 08:57 Dose: 54 mg Documented By: GEOVANNA Loperamide HCl (Loperamide Hcl 2 Mg Capsule) 2 mg PO Q6H PRN PRN Reason: Diarrhea Magnesium Hydroxide (Milk Of Magnesia 30 Ml Oral.Susp) 30 ml PO DAILY PRN PRN Reason: Constipation Melatonin (Melatonin 3 Mg Tablet) 6 mg PO BEDTIME PRN PRN Reason: Insomnia Last Admin: 07/29/25 20:17 Dose: 6 mg Documented By: JOBY Naloxone HCl (Naloxone Hcl 0.4 Mg/Ml Vial) 0.04 mg IVPUSH Q5M PRN PRN Reason: Excessive sedation or RR < 8 Naloxone HCl (Naloxone Hcl 0.4 Mg/Ml Vial) 0.04 mg IVPUSH Q5M PRN PRN Reason: Excessive sedation or RR < 8 Olanzapine (Olanzapine 10 Mg Tablet) 20 mg PO BEDTIME [facility] Last Admin: 08/01/25 20:38 Dose: 20 mg Documented By: GENOVEVA Ondansetron HCl (Ondansetron Hcl 4 Mg/2 Ml Vial) 4 mg IVPUSH Q8H PRN PRN Reason: Nausea and Vomiting Last Admin: 07/28/25 03:49 Dose: 4 mg Documented By: JAE Oxycodone HCl (Oxycodone Hcl Immed Release 5 Mg Tablet) 5 mg PO Q6H PRN PRN Reason: Pain, Severe (Pain Scale 7-10) Last Admin: 08/02/25 08:59 Dose: 5 mg Documented By: GEOVANNA Pantoprazole Sodium (Pantoprazole Sodium 40 Mg/10 Ml Vial) 40 mg IVPUSH BID@0630,1630 [facility] Last Admin: 08/02/25 05:07 Dose: 40 mg Documented By: ANTOIC Pravastatin Sodium (Pravastatin Sodium 40 Mg Tablet) 40 mg PO DAILY [facility] Last Admin: 08/02/25 08:57 Dose: 40 mg Documented By: GEOVANNA Sertraline HCl (Sertraline Hcl 100 Mg Tablet) 100 mg PO DAILY [facility] Last Admin: 08/02/25 08:56 Dose: 100 mg Documented By: GEOVANNA Sertraline HCl (Sertraline Hcl 25 Mg Tablet) 25 mg PO DAILY [facility] Last Admin: 08/02/25 08:57 Dose: 25 mg Documented By: GEOVANNA Sodium Biphosphate/Sodium Phosphate (Sodium Phosphate,[place]-Dibasic 133 Ml Enema) 133 ml [place] ONCE PRN PRN Reason: Poor Colonoscopy Prep Results Last Admin: 07/22/25 10:59 Dose: 133 ml Documented By: JAYJAY Sodium Biphosphate/Sodium Phosphate (Sodium Phosphate,[place]-Dibasic 133 Ml Enema) 133 ml [place] ONCE PRN PRN Reason: Poor Colonoscopy Prep Results Sodium Chloride (0.9 % Sodium Chloride Flush 3 Ml Syringe) 3 ml IVFLUSH QSHIFT [facility] Last Admin: 08/02/25 08:58 Dose: 3 ml Documented By: GEOVANNA Tramadol HCl (Tramadol Hcl 50 Mg Tablet) 50 mg PO Q6H PRN PRN Reason: Pain, Moderate(Pain Scale 4-6) Last Admin: 07/29/25 13:49 Dose: 50 mg Documented By: COLBURK Labs 07/31/25 06:03 07/31/25 06:03 Assessment and Plan (1) Rectal mass: Status: Acute Assessment and Plan: 70M PMH intellectual disability, hyperlipidemia, schizophrenia, anxiety, diabetes status post right toe amputation, hypertension presented with fall, bright red blood per rectum, found to have severe anemia Acute on chronic blood loss anemia with bright red blood per rectum Hemoglobin improved after 3 units from 4.3 to 7, now stable, no further bleed s/p colonoscopy 07/22/2025 suspicious for rectal mass, biopsy was negative, but high suspicion underwent repeat biopsy 07/30/25 Diarrhea: Improving C diff negative, GI P norovirus Right hydronephrosis due to obstructing stone Appears asymptomatic, planning on inpatient cysto Acute kidney injury Due to hypoperfusion from anemia resolved Schizophrenia Olanzapine Diabetes Insulin sliding scale DVT prophylaxis-mechanical due to severe anemia and bright red blood per rectum DNR/DNI reason for continued hospitalization: cysto prior to discharge Quality Stroke Does the patient have a stroke diagnosis?: No VTE Prior VTE?: No VTE Risk Level:: Medical - moderate - high VTE Device Contraindication: N/A - Device Ordered VTE Drug Contraindication: Treatment Not Indicated
[2025-08-02 12:00] VITALS: BP 108/60; PULSE 77; RESP 16; TEMP 36.6; O2SAT 97
[2025-08-02 15:42] VITALS: BP 117/56; PULSE 92; RESP 19; TEMP 37.3; O2SAT 99
[2025-08-02 20:00] VITALS: BP 133/62; PULSE 80; RESP 19; TEMP 36.8; O2SAT 98
[2025-08-02 23:27] VITALS: BP 117/60; PULSE 89; RESP 18; TEMP 36.6; O2SAT 98
[2025-08-03 03:49] VITALS: BP 106/54; PULSE 68; RESP 18; TEMP 37.2; O2SAT 97
[2025-08-03 07:57] VITALS: BP 109/57; PULSE 68; RESP 18; TEMP 36.8; O2SAT 100
[2025-08-03] MEDS: 0.9 % Sodium Chloride Flush 3 ML SYRINGE IVFLUSH ×3 (08:41→20:23)
--- NOTE | 2025-08-03 10:17 | HO.PM.IMPN ---
Subjective Subjective Date of Service: 08/03/25 Interval History: no new complaints Physical Exam Vital Signs: Vital Signs: Last Vital Signs Temp 98.3 F 08/03/25 07:57 Pulse 68 08/03/25 07:57 Resp 18 08/03/25 07:57 BP 109/57 L 08/03/25 07:57 Pulse Ox 100 08/03/25 07:57 O2 Del Method Room Air 08/03/25 07:57 O2 Flow Rate 6 07/30/25 12:41 BMI result Body Mass Index 24.8 Const: General: comfortable and no acute distress Resp: Effort & Inspection: normal respiratory effort Cardio: Rate: regular rate GI: Palpation (GI): Soft to palpation, not firm and nontender Objective Data Active Medications Acetaminophen (Acetaminophen 325 Mg Tablet) 975 mg PO Q6H PRN PRN Reason: Pain, Mild 1-3,fever,headache Last Admin: 07/27/25 08:01 Dose: 975 mg Documented By: ROBEL Calcium Carbonate (Calcium Carbonate 750 Mg Tab.Chew) 750 mg PO Q4H PRN PRN Reason: Heartburn Fenofibrate (Fenofibrate 54 Mg Tablet) 54 mg PO DAILY [facility] Last Admin: 08/03/25 08:40 Dose: 54 mg Documented By: GEOVANNA Loperamide HCl (Loperamide Hcl 2 Mg Capsule) 2 mg PO Q6H PRN PRN Reason: Diarrhea Magnesium Hydroxide (Milk Of Magnesia 30 Ml Oral.Susp) 30 ml PO DAILY PRN PRN Reason: Constipation Melatonin (Melatonin 3 Mg Tablet) 6 mg PO BEDTIME PRN PRN Reason: Insomnia Last Admin: 07/29/25 20:17 Dose: 6 mg Documented By: JOBY Naloxone HCl (Naloxone Hcl 0.4 Mg/Ml Vial) 0.04 mg IVPUSH Q5M PRN PRN Reason: Excessive sedation or RR < 8 Naloxone HCl (Naloxone Hcl 0.4 Mg/Ml Vial) 0.04 mg IVPUSH Q5M PRN PRN Reason: Excessive sedation or RR < 8 Olanzapine (Olanzapine 10 Mg Tablet) 20 mg PO BEDTIME [facility] Last Admin: 08/02/25 20:23 Dose: 20 mg Documented By: DOMINICK Ondansetron HCl (Ondansetron Hcl 4 Mg/2 Ml Vial) 4 mg IVPUSH Q8H PRN PRN Reason: Nausea and Vomiting Last Admin: 07/28/25 03:49 Dose: 4 mg Documented By: JAE Oxycodone HCl (Oxycodone Hcl Immed Release 5 Mg Tablet) 5 mg PO Q6H PRN PRN Reason: Pain, Severe (Pain Scale 7-10) Last Admin: 08/02/25 15:20 Dose: 5 mg Documented By: GEOVANNA Pantoprazole Sodium (Pantoprazole Sodium 40 Mg/10 Ml Vial) 40 mg IVPUSH BID@0630,1630 [facility] Last Admin: 08/03/25 05:32 Dose: 40 mg Documented By: DOMINICK Pravastatin Sodium (Pravastatin Sodium 40 Mg Tablet) 40 mg PO DAILY [facility] Last Admin: 08/03/25 08:40 Dose: 40 mg Documented By: GEOVANNA Sertraline HCl (Sertraline Hcl 100 Mg Tablet) 100 mg PO DAILY [facility] Last Admin: 08/03/25 08:40 Dose: 100 mg Documented By: GEOVANNA Sertraline HCl (Sertraline Hcl 25 Mg Tablet) 25 mg PO DAILY [facility] Last Admin: 08/03/25 08:40 Dose: 25 mg Documented By: GEOVANNA Sodium Biphosphate/Sodium Phosphate (Sodium Phosphate,[place]-Dibasic 133 Ml Enema) 133 ml [place] ONCE PRN PRN Reason: Poor Colonoscopy Prep Results Last Admin: 07/22/25 10:59 Dose: 133 ml Documented By: JAYJAY Sodium Biphosphate/Sodium Phosphate (Sodium Phosphate,[place]-Dibasic 133 Ml Enema) 133 ml [place] ONCE PRN PRN Reason: Poor Colonoscopy Prep Results Sodium Chloride (0.9 % Sodium Chloride Flush 3 Ml Syringe) 3 ml IVFLUSH QSHIFT [facility] Last Admin: 08/03/25 08:41 Dose: 3 ml Documented By: GEOVANNA Tramadol HCl (Tramadol Hcl 50 Mg Tablet) 50 mg PO Q6H PRN PRN Reason: Pain, Moderate(Pain Scale 4-6) Last Admin: 08/02/25 20:22 Dose: 50 mg Documented By: DOMINICK Labs 07/31/25 06:03 07/31/25 06:03 Assessment and Plan (1) Rectal mass: Status: Acute Assessment and Plan: 70M PMH intellectual disability, hyperlipidemia, schizophrenia, anxiety, diabetes status post right toe amputation, hypertension presented with fall, bright red blood per rectum, found to have severe anemia Acute on chronic blood loss anemia with bright red blood per rectum Hemoglobin improved after 3 units from 4.3 to 7, now stable, no further bleed s/p colonoscopy 07/22/2025 suspicious for rectal mass, biopsy was negative, but high suspicion underwent repeat biopsy 07/30/25 Diarrhea: Improving C diff negative, GI P norovirus Right hydronephrosis due to obstructing stone Appears asymptomatic, planning on inpatient cysto 08/04/25 Acute kidney injury Due to hypoperfusion from anemia resolved Schizophrenia Olanzapine Diabetes Insulin sliding scale DVT prophylaxis-mechanical due to severe anemia and bright red blood per rectum DNR/DNI reason for continued hospitalization: cysto prior to discharge Quality Stroke Does the patient have a stroke diagnosis?: No VTE Prior VTE?: No VTE Risk Level:: Medical - moderate - high VTE Device Contraindication: N/A - Device Ordered VTE Drug Contraindication: Treatment Not Indicated
[2025-08-03 11:34] VITALS: BP 128/60; PULSE 79; RESP 18; TEMP 36.8; O2SAT 97
[2025-08-03 16:00] VITALS: BP 126/71; PULSE 91; RESP 19; TEMP 36.8; O2SAT 97
[2025-08-03 20:00] VITALS: BP 109/57; PULSE 100; RESP 19; TEMP 36.9; O2SAT 96
[2025-08-04] VITALS (9 sets, daily range): BP systolic 112–136; BP diastolic 60–71; PULSE 73–87; RESP 16–18; TEMP 36.2–36.9; O2SAT 96–100
[2025-08-04] MEDS: 0.9 % Sodium Chloride Flush 3 ML SYRINGE IVFLUSH ×3 (07:42→20:56)
--- NOTE | 2025-08-04 09:14 | HO.ANESPROP2 ---
Documented by User: Kaylin Blanca NP 08/04/25 09:15 HPI - Anesthesia Eval Consult details Narrative: 70 yr old male for right ?Cystoscopy, Ureteroroscopy, Retro, Laser,with stent placement Acute blood loss anemia: H/H stable, 7.8 [facility] Active Problems Active Problems: All Active Problems Rectal mass (Acute) MIGUEL (acute kidney injury) (Acute) ABLA (acute blood loss anemia) (Acute) Hydroureteronephrosis (Acute) Anemia requiring transfusions (Acute) Bright red rectal bleeding (Acute) OAB (overactive bladder) (Acute) HTN (hypertension) (Acute) Status post amputation of toe of right foot (Acute) Type 2 diabetes mellitus without complications (Acute) Anxiety (Acute) Schizophrenia (Acute) HLD (hyperlipidemia) (Acute) Intellectual disability (Acute) Past Medical History Medical History OAB (overactive bladder) HTN (hypertension) Type 2 diabetes mellitus without complications Anxiety Schizophrenia HLD (hyperlipidemia) Intellectual disability Functional capacity: independent ambulation Family History Family history of problems with anesthesia: No Surgical History Surgical History Hx of cholecystectomy Status post amputation of toe of right foot History of Problems with Anesthesia: No Social History Social History Household Members: Other Household Members Other:: [facility] Housing: [facility] Other:: [facility] Patient Tobacco Use Status: Never used Tobacco service: No Meds Allergies Allergy/AdvReac Type Severity Reaction Status Date / Time fluphenazine (From PROLIXIN) Allergy Severe SEIZURES Verified 07/20/25 14:58 proxlin AdvReac Unknown seizures Uncoded 07/20/25 14:58 Active Medications: Current Medications Acetaminophen (Acetaminophen 325 Mg Tablet) 975 mg PO Q6H PRN PRN Reason: Pain, Mild 1-3,fever,headache Last Admin: 07/27/25 08:01 Dose: 975 mg Calcium Carbonate (Calcium Carbonate 750 Mg Tab.Chew) 750 mg PO Q4H PRN PRN Reason: Heartburn Fenofibrate (Fenofibrate 54 Mg Tablet) 54 mg PO DAILY [facility] Last Admin: 08/04/25 07:41 Dose: 54 mg Loperamide HCl (Loperamide Hcl 2 Mg Capsule) 2 mg PO Q6H PRN PRN Reason: Diarrhea Magnesium Hydroxide (Milk Of Magnesia 30 Ml Oral.Susp) 30 ml PO DAILY PRN PRN Reason: Constipation Melatonin (Melatonin 3 Mg Tablet) 6 mg PO BEDTIME PRN PRN Reason: Insomnia Last Admin: 07/29/25 20:17 Dose: 6 mg Naloxone HCl (Naloxone Hcl 0.4 Mg/Ml Vial) 0.04 mg IVPUSH Q5M PRN PRN Reason: Excessive sedation or RR < 8 Naloxone HCl (Naloxone Hcl 0.4 Mg/Ml Vial) 0.04 mg IVPUSH Q5M PRN PRN Reason: Excessive sedation or RR < 8 Olanzapine (Olanzapine 10 Mg Tablet) 20 mg PO BEDTIME [facility] Last Admin: 08/03/25 20:21 Dose: 20 mg Ondansetron HCl (Ondansetron Hcl 4 Mg/2 Ml Vial) 4 mg IVPUSH Q8H PRN PRN Reason: Nausea and Vomiting Last Admin: 07/28/25 03:49 Dose: 4 mg Oxycodone HCl (Oxycodone Hcl Immed Release 5 Mg Tablet) 5 mg PO Q6H PRN PRN Reason: Pain, Severe (Pain Scale 7-10) Last Admin: 08/02/25 15:20 Dose: 5 mg Pantoprazole Sodium (Pantoprazole Sodium 40 Mg/10 Ml Vial) 40 mg IVPUSH BID@0630,1630 [facility] Last Admin: 08/04/25 05:40 Dose: 40 mg Pravastatin Sodium (Pravastatin Sodium 40 Mg Tablet) 40 mg PO DAILY [facility] Last Admin: 08/04/25 07:41 Dose: 40 mg Sertraline HCl (Sertraline Hcl 100 Mg Tablet) 100 mg PO DAILY [facility] Last Admin: 08/04/25 07:41 Dose: 100 mg Sertraline HCl (Sertraline Hcl 25 Mg Tablet) 25 mg PO DAILY [facility] Last Admin: 08/04/25 07:41 Dose: 25 mg Sodium Biphosphate/Sodium Phosphate (Sodium Phosphate,[place]-Dibasic 133 Ml Enema) 133 ml TX ONCE PRN PRN Reason: Poor Colonoscopy Prep Results Last Admin: 07/22/25 10:59 Dose: 133 ml Sodium Biphosphate/Sodium Phosphate (Sodium Phosphate,[place]-Dibasic 133 Ml Enema) 133 ml TX ONCE PRN PRN Reason: Poor Colonoscopy Prep Results Sodium Chloride (0.9 % Sodium Chloride Flush 3 Ml Syringe) 3 ml IVFLUSH QSHIFT [facility] Last Admin: 08/04/25 07:42 Dose: 3 ml Tramadol HCl (Tramadol Hcl 50 Mg Tablet) 50 mg PO Q6H PRN PRN Reason: Pain, Moderate(Pain Scale 4-6) Last Admin: 08/03/25 20:21 Dose: 50 mg Home Medications ?Medication ?Instructions ?Recorded ?Confirmed ?Last Taken ?Type acetaminophen 500 mg tablet 500 mg PO Q6H PRN Pain 07/21/25 07/21/25 Unknown History aluminum-mag hydroxide-simethicone 30 ml PO Q4H PRN GI DISTRESS 07/21/25 07/21/25 Unknown History 200 mg-200 mg-20 mg/5 mL oral susp aspirin 81 mg tablet,delayed 81 mg PO DAILY 07/21/25 07/21/25 Unknown History release fenofibrate 54 mg tablet 54 mg PO DAILY 07/21/25 07/21/25 Unknown History icosapent ethyl 1 gram capsule 1 g PO DAILY 07/21/25 07/21/25 Unknown History (Vascepa) lisinopril 5 mg tablet 5 mg PO DAILY 07/21/25 07/21/25 Unknown History loperamide 2 mg tablet 2 mg PO Q4H PRN Diarrhea 07/21/25 07/21/25 Unknown History lovastatin 40 mg tablet 40 mg PO DAILY 07/21/25 07/21/25 Unknown History magnesium hydroxide 400 mg/5 mL 30 ml PO DAILY PRN Constipation 07/21/25 07/21/25 Unknown History oral suspension (Milk of Magnesia) olanzapine 20 mg tablet 20 mg PO BEDTIME 07/21/25 07/21/25 Unknown History oxybutynin chloride 5 mg tablet 5 mg PO BID 07/21/25 07/21/25 Unknown History sertraline 100 mg tablet 100 mg PO DAILY 07/21/25 07/21/25 Unknown History sertraline 50 mg tablet 25 mg PO DAILY 07/21/25 07/21/25 Unknown History Exam Height,Weight and Vital Signs: Height 6 ft 2 in Weight 87.7 kg Last Vital Signs Temp 97.7 F 08/04/25 08:00 Pulse 79 08/04/25 08:00 Resp 18 08/04/25 08:00 BP 112/60 08/04/25 08:00 Pulse Ox 97 08/04/25 08:00 O2 Del Method Room Air 08/04/25 08:00 O2 Flow Rate 6 07/30/25 12:41 Pertinent Lab Results Pertinent Lab Results: Laboratory Tests 07/20/25 07/20/25 07/20/25 16:14 17:00 17:06 WBC 6.0 RBC 1.68 L Hgb 4.3 L* Hct 14.0 L* MCV 83.3 MCH 25.6 L MCHC 30.7 L RDW 15.1 Plt Count 169 MPV 11.4 Immature Gran % (Auto) 0.8 H Neut % (Auto) 79.1 H Lymph % (Auto) 13.1 L [place] % (Auto) 6.8 Eos % (Auto) 0.0 Baso % (Auto) 0.2 Lymph # (Auto) 0.8 L [place] # (Auto) 0.4 Eos # (Auto) 0.0 Baso # (Auto) 0.0 Abs Immat Gran (auto) 0.05 H Absolute Neuts (auto) 4.8 Absolute Nucleated RBC 0.000 Nucleated RBC % (auto) 0.0 Smear Path Review SEE NOTE PT INR Sodium 144 Potassium 3.9 Chloride 116 H Carbon Dioxide 21 L Anion Gap 11 L BUN 22 H Creatinine 1.53 H Estim Creat Clear Calc 52.2 Estimated GFR 45 Random Glucose 119 H Estimat Average Glucose Hemoglobin A1c % Calcium 8.2 L Magnesium 2.1 Iron 13 L TIBC 323 % Saturation 4 L Unsat Iron Binding 310 Ferritin 6 L Total Bilirubin 0.1 AST 23 ALT 16 Alkaline Phosphatase 35 L Lactate Dehydrogenase Total Protein 5.9 L Albumin 4.0 Carcinoembryonic Ag Urine Color Yellow Urine Appearance Clear Urine pH 7.0 Ur Specific [place] 1.015 Urine Protein Negative Urine Glucose (UA) Negative Urine Ketones Negative Urine Blood Negative Urine Nitrite Negative Ur Leukocyte Esterase Trace H Urine RBC 0-2 Urine WBC 0-5 Ur Squamous Epith Cells 0-2 Urine Bacteria None Seen Hyaline Casts 0-2 Stool Occult Blood POSITIVE Stl C. cayetanensis PCR Stool Rotavirus A PCR Stl Adenov F 40/41 PCR Stool Astrovirus (PCR) Stool Campylobacter PCR Stool Cryptosporidium PCR Stl Sh Tox Pr E STEC PCR Stool E coli O157 PCR Stl Enterotoxigenic E PCR Stool EPEC (PCR) Stool EAEC (PCR) Stl E. histolytica PCR Stool Giardia Lamblia PCR Stl P. shigelloides PCR Stool Salmonella PCR Stool Sapovirus (PCR) Stl Shigella/EIEC PCR St Y.enterocolitica PCR Stool Vibrio (PCR) Stl Vibrio cholerae PCR Stl Norovirus GI/GII PCR C. difficile Tox B Gene Influenza Type A (PCR) NEGATIVE Influenza Type B (PCR) NEGATIVE RSV RNA Qual (PCR) NEGATIVE SARS-CoV-2 RNA (RT-PCR) NEGATIVE Blood Type A Negative Antibody Screen NEGATIVE Crossmatch See Detail 07/20/25 07/21/25 07/21/25 20:36 00:58 04:58 WBC 5.5 6.6 7.3 RBC 1.77 L 2.15 L D 2.47 L Hgb 4.7 L* 5.9 L* D 7.0 L* Hct 15.2 L* 18.9 L* D 21.8 L MCV 85.9 87.9 88.3 MCH 26.6 L 27.4 28.3 MCHC 30.9 L 31.2 32.1 RDW 15.5 16.2 H 15.5 Plt Count 132 L 140 L 146 L MPV 11.2 11.6 11.4 Immature Gran % (Auto) 0.4 0.3 Neut % (Auto) 76.5 H 76.1 H Lymph % (Auto) 14.1 L 13.9 L [place] % (Auto) 8.8 9.4 Eos % (Auto) 0.0 0.0 Baso % (Auto) 0.2 0.3 Lymph # (Auto) 0.8 L 0.9 L [place] # (Auto) 0.5 0.6 Eos # (Auto) 0.0 0.0 Baso # (Auto) 0.0 0.0 Abs Immat Gran (auto) 0.02 0.02 Absolute Neuts (auto) 4.2 5.0 Absolute Nucleated RBC 0.000 0.000 0.000 Nucleated RBC % (auto) 0.0 0.0 0.0 Smear Path Review PT 14.1 H INR 1.2 H Sodium 143 Potassium 4.2 Chloride 118 H Carbon Dioxide 20 L Anion Gap 9 L BUN 20 H Creatinine 1.24 Estim Creat Clear Calc 64.4 Estimated GFR 58 Random Glucose 106 Estimat Average Glucose TNP Hemoglobin A1c % TNP Calcium 8.1 L Magnesium Iron TIBC % Saturation Unsat Iron Binding Ferritin Total Bilirubin AST ALT Alkaline Phosphatase Lactate Dehydrogenase Total Protein Albumin Carcinoembryonic Ag Urine Color Urine Appearance Urine pH Ur Specific [place] Urine Protein Urine Glucose (UA) Urine Ketones Urine Blood Urine Nitrite Ur Leukocyte Esterase Urine RBC Urine WBC Ur Squamous Epith Cells Urine Bacteria Hyaline Casts Stool Occult Blood Stl C. cayetanensis PCR Stool Rotavirus A PCR Stl Adenov F PCR Stool Astrovirus (PCR) Stool Campylobacter PCR Stool Cryptosporidium PCR Stl Sh Tox Pr E STEC PCR Stool E coli O157 PCR Stl Enterotoxigenic E PCR Stool EPEC (PCR) Stool EAEC (PCR) Stl E. histolytica PCR Stool Giardia Lamblia PCR Stl P. shigelloides PCR Stool Salmonella PCR Stool Sapovirus (PCR) Stl Shigella/EIEC PCR St Y.enterocolitica PCR Stool Vibrio (PCR) Stl Vibrio cholerae PCR Stl Norovirus GI/GII PCR C. difficile Tox B Gene Influenza Type A (PCR) Influenza Type B (PCR) RSV RNA Qual (PCR) SARS-CoV-2 RNA (RT-PCR) Blood Type Antibody Screen Crossmatch 07/21/25 07/22/25 07/23/25 09:33 06:40 06:27 WBC 4.7 L 4.4 L RBC 2.71 L 2.72 L Hgb 7.5 L 7.9 L 7.9 L Hct 23.3 L 24.1 L 24.1 L MCV 88.9 88.6 MCH 29.2 29.0 MCHC 32.8 32.8 RDW 15.9 16.2 H Plt Count 141 L 135 L MPV 11.2 11.3 Immature Gran % (Auto) Neut % (Auto) Lymph % (Auto) [place] % (Auto) Eos % (Auto) Baso % (Auto) Lymph # (Auto) [place] # (Auto) Eos # (Auto) Baso # (Auto) Abs Immat Gran (auto) Absolute Neuts (auto) Absolute Nucleated RBC 0.000 0.000 Nucleated RBC % (auto) 0.0 0.0 Smear Path Review PT INR Sodium 144 142 Potassium 3.8 3.7 Chloride 116 H 115 H Carbon Dioxide 21 L 22 Anion Gap 11 L 9 L BUN 17 H 15 Creatinine 0.99 1.01 Estim Creat Clear Calc 80.7 79.1 Estimated GFR > 60 > 60 Random Glucose 92 90 Estimat Average Glucose Hemoglobin A1c % Calcium 7.9 L 7.9 L Magnesium Iron TIBC % Saturation Unsat Iron Binding Ferritin Total Bilirubin AST ALT Alkaline Phosphatase Lactate Dehydrogenase 132 Total Protein Albumin Carcinoembryonic Ag 10.90 Urine Color Urine Appearance Urine pH Ur Specific [place] Urine Protein Urine Glucose (UA) Urine Ketones Urine Blood Urine Nitrite Ur Leukocyte Esterase Urine RBC Urine WBC Ur Squamous Epith Cells Urine Bacteria Hyaline Casts Stool Occult Blood Stl C. cayetanensis PCR Stool Rotavirus A PCR Stl Adenov F 40/41 PCR Stool Astrovirus (PCR) Stool Campylobacter PCR Stool Cryptosporidium PCR Stl Sh Tox Pr E STEC PCR Stool E coli O157 PCR Stl Enterotoxigenic E PCR Stool EPEC (PCR) Stool EAEC (PCR) Stl E. histolytica PCR Stool Giardia Lamblia PCR Stl P. shigelloides PCR Stool Salmonella PCR Stool Sapovirus (PCR) Stl Shigella/EIEC PCR St Y.enterocolitica PCR Stool Vibrio (PCR) Stl Vibrio cholerae PCR Stl Norovirus GI/GII PCR C. difficile Tox B Gene Influenza Type A (PCR) Influenza Type B (PCR) RSV RNA Qual (PCR) SARS-CoV-2 RNA (RT-PCR) Blood Type Antibody Screen Crossmatch 07/28/25 07/28/25 07/28/25 05:53 08:23 17:43 WBC 4.5 L RBC 2.65 L Hgb 7.3 L Hct 23.5 L MCV 88.7 MCH 27.5 MCHC 31.1 RDW 15.6 Plt Count 123 L MPV 12.1 Immature Gran % (Auto) Neut % (Auto) Lymph % (Auto) [place] % (Auto) Eos % (Auto) Baso % (Auto) Lymph # (Auto) [place] # (Auto) Eos # (Auto) Baso # (Auto) Abs Immat Gran (auto) Absolute Neuts (auto) Absolute Nucleated RBC 0.000 Nucleated RBC % (auto) 0.0 Smear Path Review PT INR Sodium 142 Potassium 4.0 Chloride 114 H Carbon Dioxide 22 Anion Gap 10 L BUN 12 Creatinine 0.98 Estim Creat Clear Calc 81.5 Estimated GFR > 60 Random Glucose 101 Estimat Average Glucose Hemoglobin A1c % Calcium 8.2 L Magnesium Iron TIBC % Saturation Unsat Iron Binding Ferritin Total Bilirubin AST ALT Alkaline Phosphatase Lactate Dehydrogenase Total Protein Albumin Carcinoembryonic Ag Urine Color Urine Appearance Urine pH Ur Specific [place] Urine Protein Urine Glucose (UA) Urine Ketones Urine Blood Urine Nitrite Ur Leukocyte Esterase Urine RBC Urine WBC Ur Squamous Epith Cells Urine Bacteria Hyaline Casts Stool Occult Blood Stl C. cayetanensis PCR Stool Rotavirus A PCR Stl Adenov F 40/41 PCR Stool Astrovirus (PCR) Stool Campylobacter PCR Stool Cryptosporidium PCR Stl Sh Tox Pr E STEC PCR Stool E coli O157 PCR Stl Enterotoxigenic E PCR Stool EPEC (PCR) Stool EAEC (PCR) Stl E. histolytica PCR Stool Giardia Lamblia PCR Stl P. shigelloides PCR Stool Salmonella PCR Stool Sapovirus (PCR) Stl Shigella/EIEC PCR St Y.enterocolitica PCR Stool Vibrio (PCR) Stl Vibrio cholerae PCR Stl Norovirus GI/GII PCR C. difficile Tox B Gene NEGATIVE Influenza Type A (PCR) Influenza Type B (PCR) RSV RNA Qual (PCR) SARS-CoV-2 RNA (RT-PCR) Blood Type A Positive Antibody Screen NEGATIVE Crossmatch 07/29/25 07/29/25 07/31/25 10:00 10:28 06:03 WBC 4.9 RBC 2.91 L Hgb 8.4 L 7.8 L Hct 26.8 L 24.7 L MCV 84.9 MCH 26.8 L MCHC 31.6 RDW 15.5 Plt Count 133 L MPV 11.8 Immature Gran % (Auto) Neut % (Auto) Lymph % (Auto) [place] % (Auto) Eos % (Auto) Baso % (Auto) Lymph # (Auto) [place] # (Auto) Eos # (Auto) Baso # (Auto) Abs Immat Gran (auto) Absolute Neuts (auto) Absolute Nucleated RBC 0.000 Nucleated RBC % (auto) 0.0 Smear Path Review PT INR Sodium 143 Potassium 4.0 Chloride 115 H Carbon Dioxide 21 L Anion Gap 11 L BUN 13 Creatinine 1.01 Estim Creat Clear Calc 79.1 Estimated GFR > 60 Random Glucose 106 Estimat Average Glucose Hemoglobin A1c % Calcium 8.2 L Magnesium Iron TIBC % Saturation Unsat Iron Binding Ferritin Total Bilirubin AST ALT Alkaline Phosphatase Lactate Dehydrogenase Total Protein Albumin Carcinoembryonic Ag Urine Color Urine Appearance Urine pH Ur Specific [place] Urine Protein Urine Glucose (UA) Urine Ketones Urine Blood Urine Nitrite Ur Leukocyte Esterase Urine RBC Urine WBC Ur Squamous Epith Cells Urine Bacteria Hyaline Casts Stool Occult Blood Stl C. cayetanensis PCR Not Detected Stool Rotavirus A PCR Not Detected Stl Adenov F 40/41 PCR Not Detected Stool Astrovirus (PCR) Not Detected Stool Campylobacter PCR Not Detected Stool Cryptosporidium PCR Not Detected Stl Sh Tox Pr E STEC PCR Not Detected Stool E coli O157 PCR Not applicable Stl Enterotoxigenic E PCR Not Detected Stool EPEC (PCR) Not Detected Stool EAEC (PCR) Not Detected Stl E. histolytica PCR Not Detected Stool Giardia Lamblia PCR Not Detected Stl P. shigelloides PCR Not Detected Stool Salmonella PCR Not Detected Stool Sapovirus (PCR) Not Detected Stl Shigella/EIEC PCR Not Detected St Y.enterocolitica PCR Not Detected Stool Vibrio (PCR) Not Detected Stl Vibrio cholerae PCR Not Detected Stl Norovirus GI/GII PCR Detected A C. difficile Tox B Gene Influenza Type A (PCR) Influenza Type B (PCR) RSV RNA Qual (PCR) SARS-CoV-2 RNA (RT-PCR) Blood Type Antibody Screen Crossmatch Assessment and Plan Final Anesthetic Review Family History of Problems with Anesthesia: No History of Problems with Anesthesia: No Documented by User: Krystal Gibson MD 08/04/25 15:13 [facility] Past Medical History Medical History OAB (overactive bladder) HTN (hypertension) Type 2 diabetes mellitus without complications Anxiety Schizophrenia HLD (hyperlipidemia) Intellectual disability Surgical History Surgical History Hx of cholecystectomy Status post amputation of toe of right foot Social History Social History Household Members: Other Household Members Other:: [facility] Housing: [facility] Housing Other:: [facility] Patient Tobacco Use Status: Never used Tobacco service: No Meds Allergies Allergy/AdvReac Type Severity Reaction Status Date / Time fluphenazine (From PROLIXIN) Allergy Severe SEIZURES Verified 07/20/25 14:58 proxlin AdvReac Unknown seizures Uncoded 07/20/25 14:58 Home Medications ?Medication ?Instructions ?Recorded ?Confirmed ?Last Taken ?Type acetaminophen 500 mg tablet 500 mg PO Q6H PRN Pain 07/21/25 07/21/25 Unknown History aluminum-mag hydroxide-simethicone 30 ml PO Q4H PRN GI DISTRESS 07/21/25 07/21/25 Unknown History 200 mg-200 mg-20 mg/5 mL oral susp aspirin 81 mg tablet,delayed 81 mg PO DAILY 07/21/25 07/21/25 Unknown History release fenofibrate 54 mg tablet 54 mg PO DAILY 07/21/25 07/21/25 Unknown History icosapent ethyl 1 gram capsule 1 g PO DAILY 07/21/25 07/21/25 Unknown History (Vascepa) lisinopril 5 mg tablet 5 mg PO DAILY 07/21/25 07/21/25 Unknown History loperamide 2 mg tablet 2 mg PO Q4H PRN Diarrhea 07/21/25 07/21/25 Unknown History lovastatin 40 mg tablet 40 mg PO DAILY 07/21/25 07/21/25 Unknown History magnesium hydroxide 400 mg/5 mL 30 ml PO DAILY PRN Constipation 07/21/25 07/21/25 Unknown History oral suspension (Milk of Magnesia) olanzapine 20 mg tablet 20 mg PO BEDTIME 07/21/25 07/21/25 Unknown History oxybutynin chloride 5 mg tablet 5 mg PO BID 07/21/25 07/21/25 Unknown History sertraline 100 mg tablet 100 mg PO DAILY 07/21/25 07/21/25 Unknown History sertraline 50 mg tablet 25 mg PO DAILY 07/21/25 07/21/25 Unknown History Exam Airway Mallampati Class: III TM Dist: >3cm Neck ROM: Full Loose/Missing/Broken Teeth: Yes, Upper and Lower Heart: RRR Lungs: CTA Assessment and Plan Assessment Anesthesia Assessment: Anesthesia Plan Discussed and Chart Reviewed Final Anesthetic Review NPO: Yes ASA Class: III Final Preanesthetic Review: Meds/Allgs Chart Reviewed, Consent Obtained/Reviewed and Anes Risks/Benef Reviewed Patient Risk: Intermediate Procedure Risk: Low Anesthetic Plan Anesthetic Plan: GA Disposition: Standard PACU
[2025-08-04 10:24] LABS: MANUAL DIFF FLAG NO
[2025-08-04 10:25] LABS: Hematocrit 25.4 % (42.0-52.0); Hemoglobin 7.8 g/dl (14.0-18.0); Imm Gran Abs Auto 0.05 X10*3/uL (0.00-0.03); Imm Gran Pct Auto 1.0 % (0.0-0.4); Lymphocytes Absolute Auto 0.8 X10*3/uL (1.2-4.9); Mean Corpuscular HGB Conc 30.7 g/dl (31.0-36.0); Mean Corpuscular Hemoglobin 25.8 pg (27.0-33.0); Mean Corpuscular Volume 84.1 fL (80.0-98.0); NRBC Abs Auto 0.000 X10*3/uL (0.0-0.012); NRBC Pct Auto 0.0 /100WBC (0.0-0.2); Platelet Count 167 X10*3/uL (160-400); Red Blood Count 3.02 X10*6/uL (4.60-5.80); White Blood Count 5.1 X10*3/uL (4.8-10.8)
[2025-08-04 10:42] LABS: Alanine Aminotransferase 20 U/L (0-40); Albumin Level 4.0 g/dL (3.5-5.0); Alkaline Phosphatase 48 U/L (39-117); Anion Gap 9 (12-20); Aspartate Amino Transferase 23 U/L (5-37); Blood Urea Nitrogen 15 mg/dL (9-16); Calcium 8.4 mg/dL (8.4-10.2); Carbon Dioxide 25 mmol/L (22-29); Chloride 114 mmol/L (96-108); Creatinine Clr Calc Pharmacy 74.6; Estimated Glomerular Filt Rate > 60; Potassium 3.8 mmol/L (3.3-5.1); Sodium 144 mmol/L (135-145); Total Protein 6.1 g/dL (6.5-8.0)
--- NOTE | 2025-08-04 11:24 | MHC.CM.PN ---
Patient not medically cleared for dc. CM will continue to follow.
[2025-08-04] MEDS: oxyCODONE HCl Immed Release 5 MG TABLET PO ×2 (11:26→21:07)
[2025-08-04 13:28] LABS: Glucose, Whole Blood 96 mg/dL (60-115)
--- NOTE | 2025-08-04 13:48 | PC.NURSE ---
iv patent voided 350ml in the urinal yellow urine
--- NOTE | 2025-08-04 14:15 | P.PNUR_ITS ---
Subjective Subjective Date of Service: 08/04/25 Interval history: Plan for stone admission procedure today Cystoscopy right retrograde, right ureteroscopy with laser lithotripsy Physical Exam 2 Vital Signs: Vital Signs: Last Vital Signs Temp 98.5 F 08/04/25 13:31 Pulse 76 08/04/25 13:31 Resp 18 08/04/25 13:31 BP 113/67 08/04/25 13:31 Pulse Ox 96 08/04/25 13:31 O2 Del Method Room Air 08/04/25 13:31 O2 Flow Rate 6 07/30/25 12:41 BMI result Body Mass Index 24.8 Const: General: cooperative, healthy appearing, comfortable and no acute distress Orientation/consciousness: patient oriented x3 HEENT: Face and sinus: Yes normal facial exam Mouth: moist mucous membranes Neck: Neck: Yes normal visual inspection, Yes full ROM and Yes trachea midline Chest: Chest palpation & inspection: normal inspection of the chest Resp: Effort & Inspection: normal respiratory effort, able to speak in complete sentences and no respiratory distress GI: Inspection: Yes normal to inspection Back/Spine/Pelvis: Cervical Spine: normal cervical lordosis Thoracic/Lumbar Spine: thoracic and lumbar spine normal to inspection Skin: General skin exam: no rashes or lesions noted Neuro: General: patient oriented x3, tone normal and moves all extremities Extrem: General: Yes normal to inspection and Yes capillary refill normal Urology Results Labs 08/04/25 10:17 08/04/25 10:17 Labs: Laboratory Results - last 24 hr 08/04/25 08/04/25 10:17 13:23 WBC 5.1 RBC 3.02 L Hgb 7.8 L Hct 25.4 L MCV 84.1 MCH 25.8 L MCHC 30.7 L RDW 15.8 Plt Count 167 D MPV 11.1 Immature Gran % (Auto) 1.0 H Neut % (Auto) 73.6 H Lymph % (Auto) 15.8 L [place] % (Auto) 9.2 Eos % (Auto) 0.2 Baso % (Auto) 0.2 Lymph # (Auto) 0.8 L [place] # (Auto) 0.5 Eos # (Auto) 0.0 Baso # (Auto) 0.0 Abs Immat Gran (auto) 0.05 H Absolute Neuts (auto) 3.8 Absolute Nucleated RBC 0.000 Nucleated RBC % (auto) 0.0 Sodium 144 Potassium 3.8 Chloride 114 H Carbon Dioxide 25 Anion Gap 9 L BUN 15 Creatinine 1.07 Estim Creat Clear Calc 74.6 Estimated GFR > 60 POC Glucose 96 Fasting Glucose 110 H Calcium 8.4 Total Bilirubin 0.2 AST 23 ALT 20 Alkaline Phosphatase 48 Total Protein 6.1 L Albumin 4.0 Progress Note: A&P Assessment and plan (1) Ureteric stone: Status: Acute (2) Hydroureteronephrosis: Status: Acute Plan Ureteroscopy We discussed the nature of the decision and reasonable alternatives for performing ureteroscopy. Options such as medical therapy were discussed. Interventions include chemical dissolution, ESWL, ureteroscopy with laser lithotripsy and stent placement, PCNL. The relative uncertainties and benefits related to each alternate procedure were adequately discussed. General surgical risks including, but not limited to - pain, bleeding, infection, myocardial infarction, pulmonary embolus, deep vein thrombosis and cerebrovascular accident which may result in further hospitalization were discussed. Full disclosure of the procedure as well as all major risks, benefits and complications were discussed including but not limited to damage to the urethra, bladder and kidney infection, damage to the ureter, stent migration or malposition, scarring to the renal pelvis, remnant stone fragments, subsequent stone passage with need for secondary procedures. The overall secondary procedure rate is approximately 10-15%. The overall clearance rate is approximately 90-95%. Success of the procedure in the short-term does not necessarily guarantee that long-term success will be maintained. Suitable follow up will need to be maintained. The patient showed understanding of discussion and wishes to proceed with - cystoscopy, retrograde, ureteroscopy, possible lithotripsy/stone basketing and stent on the right side Time Spent With Patient Time: Total time managing care of this patient today ____ minutes. Progress Note: Quality Stroke Does the patient have a stroke diagnosis?: No
--- NOTE | 2025-08-04 14:44 | MHC.SHP ---
Pre-Procedural Eval Section A - 24 Hr Update-Section A only Date of Service: 08/04/25 The patient is an INPATIENT: Yes Changes since office visit: No Cold of Flu in the past 2 weeks, No New Medical Problems, No Changes in Medication and No Patient answered all questions The patient has been examined within 24 hours of the surgical procedure. The History & Physical has been completed within 30 days and I have reviewed it.: Yes Section B - Complete if H&P > 30 days Chief Complaint: Distal right ureteric stone Details of Present Illness: Found in addition to his GI bleed. Previously discussed with his sister We are currently unable to get hold of her to verify consent for surgery and anesthesia Cases been declared emergent as this needs to be completed for the patient to be discharged from hospital Relevant Family History (Specify if Yes): No Relevant Social History: None Present Medications: see Short Stay Collaborative assessment Medical History: Significant History History of Previous Operations: No relevant previous surgery Allergies: Allergies Allergy/AdvReac Type Severity Reaction Status Date / Time fluphenazine (From PROLIXIN) Allergy Severe SEIZURES Verified 07/20/25 14:58 proxlin AdvReac Unknown seizures Uncoded 07/20/25 14:58 Review of Systems Sugical H&P ROS: Negative: Constitution, Cardiovascular, Respiratory, Neurological, Psychiatric, Hem-Onc, Allergic/Immunologic, Gastrointestinal, Genitourinary, Musculoskeletal, Integumentary, Endocrine and Eyes/Ears/Nose/Throat Exam Surgical H&P Exam: Normal: HEENT, Normal: Heart, Normal: Lungs, Normal: Extremities, Normal: Abdomen, Normal: Skin and Normal: Neurological Plan Diagnosis/Plan: Unchanged (Cystoscopy, right retrograde, right ureteroscopy with laser lithotripsy stent placed) I have reviewed the history and physical and performed a pertinent physical examination on my patient. No changes have occurred unless specified. Time Spent With Patient Time: Total time managing care of this patient today ____ minutes.
--- NOTE | 2025-08-04 14:52 | PC.NURSE ---
pt declared urgent and emergent need for surgery. unable to contact sister surgery will proceed
--- NOTE | 2025-08-04 15:00 | P.PNIM_ITS ---
Subjective Subjective Date of Service: 08/04/25 Interval History: No acute issues overnight. For cysto today Review of Systems Denies chest pain Denies shortness of breath Denies nausea vomiting diarrhea Denies fever chills Physical Exam 2 Vital Signs: Vital Signs: Last Vital Signs Temp 98.5 F 08/04/25 13:31 Pulse 76 08/04/25 13:31 Resp 18 08/04/25 13:31 BP 113/67 08/04/25 13:31 Pulse Ox 96 08/04/25 13:31 O2 Del Method Room Air 08/04/25 13:31 O2 Flow Rate 6 07/30/25 12:41 BMI result Body Mass Index 24.8 Const: Other: Awake alert no acute distress Resp: Other: Clear to auscultation bilaterally no rales rhonchi or wheezes Cardio: Other: No S4; positive S1-S2; no S3 murmurs rubs or gallops GI: Other: Soft nontender nondistended normoactive bowel sounds Extrem: Other: No edema bilaterally Objective Data Active Medications Acetaminophen (Acetaminophen 325 Mg Tablet) 975 mg PO Q6H PRN PRN Reason: Pain, Mild 1-3,fever,headache Last Admin: 07/27/25 08:01 Dose: 975 mg Documented By: ROBEL Calcium Carbonate (Calcium Carbonate 750 Mg Tab.Chew) 750 mg PO Q4H PRN PRN Reason: Heartburn Fenofibrate (Fenofibrate 54 Mg Tablet) 54 mg PO DAILY FLAVIA Last Admin: 08/04/25 07:41 Dose: 54 mg Documented By: JULIA Loperamide HCl (Loperamide Hcl 2 Mg Capsule) 2 mg PO Q6H PRN PRN Reason: Diarrhea Magnesium Hydroxide (Milk Of Magnesia 30 Ml Oral.Susp) 30 ml PO DAILY PRN PRN Reason: Constipation Melatonin (Melatonin 3 Mg Tablet) 6 mg PO BEDTIME PRN PRN Reason: Insomnia Last Admin: 07/29/25 20:17 Dose: 6 mg Documented By: JOBY Naloxone HCl (Naloxone Hcl 0.4 Mg/Ml Vial) 0.04 mg IVPUSH Q5M PRN PRN Reason: Excessive sedation or RR < 8 Naloxone HCl (Naloxone Hcl 0.4 Mg/Ml Vial) 0.04 mg IVPUSH Q5M PRN PRN Reason: Excessive sedation or RR < 8 Olanzapine (Olanzapine 10 Mg Tablet) 20 mg PO BEDTIME [facility] Last Admin: 08/03/25 20:21 Dose: 20 mg Documented By: DOMINICK Ondansetron HCl (Ondansetron Hcl 4 Mg/2 Ml Vial) 4 mg IVPUSH Q8H PRN PRN Reason: Nausea and Vomiting Last Admin: 07/28/25 03:49 Dose: 4 mg Documented By: JAE Oxycodone HCl (Oxycodone Hcl Immed Release 5 Mg Tablet) 5 mg PO Q6H PRN PRN Reason: Pain, Severe (Pain Scale 7-10) Last Admin: 08/04/25 11:26 Dose: 5 mg Documented By: LAURA Pantoprazole Sodium (Pantoprazole Sodium 40 Mg/10 Ml Vial) 40 mg IVPUSH BID@0630,1630 [facility] Last Admin: 08/04/25 05:40 Dose: 40 mg Documented By: DOMINICK Pravastatin Sodium (Pravastatin Sodium 40 Mg Tablet) 40 mg PO DAILY [facility] Last Admin: 08/04/25 07:41 Dose: 40 mg Documented By: JULIA Sertraline HCl (Sertraline Hcl 100 Mg Tablet) 100 mg PO DAILY [facility] Last Admin: 08/04/25 07:41 Dose: 100 mg Documented By: JULIA Sertraline HCl (Sertraline Hcl 25 Mg Tablet) 25 mg PO DAILY [facility] Last Admin: 08/04/25 07:41 Dose: 25 mg Documented By: JULIA Sodium Biphosphate/Sodium Phosphate (Sodium Phosphate,[place]-Dibasic 133 Ml Enema) 133 ml ND ONCE PRN PRN Reason: Poor Colonoscopy Prep Results Last Admin: 07/22/25 10:59 Dose: 133 ml Documented By: JAYJAY Sodium Biphosphate/Sodium Phosphate (Sodium Phosphate,[place]-Dibasic 133 Ml Enema) 133 ml ND ONCE PRN PRN Reason: Poor Colonoscopy Prep Results Sodium Chloride (0.9 % Sodium Chloride Flush 3 Ml Syringe) 3 ml IVFLUSH QSHIFT [facility] Last Admin: 08/04/25 07:42 Dose: 3 ml Documented By: JULIA Tramadol HCl (Tramadol Hcl 50 Mg Tablet) 50 mg PO Q6H PRN PRN Reason: Pain, Moderate(Pain Scale 4-6) Last Admin: 08/03/25 20:21 Dose: 50 mg Documented By: DOMINICK Labs 08/04/25 10:17 08/04/25 10:17 Labs: Laboratory Results - last 24 hr 08/04/25 08/04/25 10:17 13:23 MCV 84.1 MCH 25.8 L MCHC 30.7 L RDW 15.8 Plt Count 167 D MPV 11.1 Immature Gran % (Auto) 1.0 H Neut % (Auto) 73.6 H Lymph % (Auto) 15.8 L [place] % (Auto) 9.2 Eos % (Auto) 0.2 Baso % (Auto) 0.2 Lymph # (Auto) 0.8 L [place] # (Auto) 0.5 Eos # (Auto) 0.0 Baso # (Auto) 0.0 Abs Immat Gran (auto) 0.05 H Absolute Neuts (auto) 3.8 Absolute Nucleated RBC 0.000 Nucleated RBC % (auto) 0.0 Anion Gap 9 L Estim Creat Clear Calc 74.6 Estimated GFR > 60 POC Glucose 96 Fasting Glucose 110 H Calcium 8.4 Total Bilirubin 0.2 AST 23 ALT 20 Alkaline Phosphatase 48 Total Protein 6.1 L Albumin 4.0 Assessment and Plan (1) Rectal mass: Status: Acute Assessment and Plan: 70M PMH intellectual disability, hyperlipidemia, schizophrenia, anxiety, diabetes status post right toe amputation, hypertension presented with fall, bright red blood per rectum, found to have severe anemia 1.Acute on chronic blood loss anemia -Hemoglobin improved after 3 units from 4.3 to 7, now stable, no further bleed -s/p colonoscopy 07/22/2025 suspicious for rectal mass, biopsy was negative, but high suspicion underwent repeat biopsy 07/30/25 -follow clinically 2.Right hydronephrosis due to obstructing stone -cysto 08/04/2025 -as per your 3.Acute kidney injury -responded well to volume -follow renals/divalents 4.Schizophrenia -stable and well compensated 5.Diabetes -acceptable control on current therapies -lispro correctional scale -adjust as indicated DVT prophylaxis-mechanical due to severe anemia and bright red blood per rectum DNR/DNI reason for continued hospitalization: cysto prior to discharge (2) ABLA (acute blood loss anemia): Status: Acute (3) MIGUEL (acute kidney injury): Status: Acute Quality Stroke Does the patient have a stroke diagnosis?: No VTE Prior VTE?: No VTE Risk Level:: Medical - moderate - high VTE Device Contraindication: N/A - Device Ordered VTE Drug Contraindication: Treatment Not Indicated
--- NOTE | 2025-08-04 15:33 | P.OP_ITS ---
Operative Note Operative Note Date of Service: 08/04/25 Narrative: PreOperative Diagnosis: Right distal ureteric stone Post Operative Diagnosis: Right distal ureteric stone Procedure: - cystoscopy, right retrograde - right dilatation of ureteric orifice under fluoroscopy - right ureteroscopy, laser lithotripsy, stone basketing - right stent placement Surgeon: Dr Josué Navas Anesthesia: General Indications for procedure: Admitted to hospital with low hematocrit. Evaluated for rectal mass. On CT scan found to have distal right ureteric stone. Procedure: After informed consent was verified the patient was brought to the operating room and placed in a supine position. Anesthesia was administered per protocol. The patient was placed in a modified dorsal lithotomy position and prepped and draped in a sterile fashion. Safety pause time-out and side of surgery were confirmed. Images were available for review. Antibiotic administration confirmed. A 22 [place]vian cystoscope was inserted per urethra. The urethra was without abnormality. The bladder was normal in its entirety. Both ureteric orifices were seen in normal position. The right ureteric orifice was cannulated and a retrograde examination was performed. Filling defects seen in distal right ureter with proximal hydro uretero nephrosis . A Sensor guidewire was placed up to the level of the renal pelvis under fluoroscopy. The rigid cystoscope was removed. A [place] dilator was placed over the Sensor guidewire and used to dilate the ureteric orifice under fluoroscopy. The dilator was removed. The semi rigid ureteral scope was placed alongside the Sensor guidewire. Stone was encountered in the previously described position. Using a 365 micro holmium laser fiber the stone was broken into small pieces using a combination of hammer and dusting techiques. A decision was made to place a ureteric stent. Based on the height of the patient a 6 Fr x variable length cm stent was used. The string was left on the stent. The rigid cystoscope was backloaded over the wire and advanced into the bladder. A 6 [place] by variable length cm double-J stent was placed into the renal pelvis and bladder under a combination of fluoroscopy and direct visualization. Proximal positioning of the stent was confirmed using fluoroscopy. The bladder was emptied. The patient tolerated the procedure well and was extubated in the operating room. They were transferred in stable condition to the recovery area. Pathology: - Drains: Double J stent as described above
[2025-08-05] VITALS (11 sets, daily range): BP systolic 100–122; BP diastolic 51–78; PULSE 65–87; RESP 16–18; TEMP 36.3–37; O2SAT 95–97
[2025-08-05] MEDS: oxyCODONE HCl Immed Release 5 MG TABLET PO ×3 (03:50→18:24)
[2025-08-05 06:21] LABS: Hematocrit 24.2 % (42.0-52.0); Hemoglobin 7.4 g/dl (14.0-18.0); Imm Gran Abs Auto 0.05 X10*3/uL (0.00-0.03); Imm Gran Pct Auto 0.8 % (0.0-0.4); Lymphocytes Absolute Auto 0.6 X10*3/uL (1.2-4.9); MANUAL DIFF FLAG NO; Mean Corpuscular HGB Conc 30.6 g/dl (31.0-36.0); Mean Corpuscular Hemoglobin 25.8 pg (27.0-33.0); Mean Corpuscular Volume 84.3 fL (80.0-98.0); NRBC Abs Auto 0.000 X10*3/uL (0.0-0.012); NRBC Pct Auto 0.0 /100WBC (0.0-0.2); Platelet Count 168 X10*3/uL (160-400); Red Blood Count 2.87 X10*6/uL (4.60-5.80); White Blood Count 6.0 X10*3/uL (4.8-10.8)
[2025-08-05 06:44] LABS: Alanine Aminotransferase 17 U/L (0-40); Albumin Level 3.8 g/dL (3.5-5.0); Alkaline Phosphatase 49 U/L (39-117); Anion Gap 10 (12-20); Aspartate Amino Transferase 23 U/L (5-37); Blood Urea Nitrogen 18 mg/dL (9-16); Calcium 8.5 mg/dL (8.4-10.2); Carbon Dioxide 22 mmol/L (22-29); Chloride 113 mmol/L (96-108); Creatinine Clr Calc Pharmacy 61.9; Estimated Glomerular Filt Rate 55; Potassium 3.8 mmol/L (3.3-5.1); Sodium 141 mmol/L (135-145); Total Protein 5.8 g/dL (6.5-8.0)
[2025-08-05] MEDS: 0.9 % Sodium Chloride Flush 3 ML SYRINGE IVFLUSH (08:51)
--- NOTE | 2025-08-05 09:03 | HO.POSTANES ---
Post Anesthesia Evaluation Post Anesthesia Evaluation Date of Service: 08/05/25 Vital Signs: Vital Signs Temp Pulse Resp BP Pulse Ox O2 Del Method 08/05/25 08:00 97.4 F 70 18 115/66 95 Room Air 08/05/25 04:00 97.5 F 71 16 100/51 L 97 Room Air 08/05/25 00:17 98.2 F 71 16 100/59 L 97 Room Air Anesthesia: General Mental Status: Awake Pain Control: Satisfactory Nausea/Vomiting: None Hydration: Adequate Anesthesia-Related Issues: No Anes. Related Issues
--- NOTE | 2025-08-05 14:10 | HO.PM.IMPN ---
Subjective Subjective Date of Service: 08/05/25 Interval History: No acute issues overnight. Tolerated cysto with stenting without issue Review of Systems Denies chest pain Denies shortness of breath Denies nausea vomiting diarrhea Denies fever chills Physical Exam Vital Signs: Vital Signs: Last Vital Signs Temp 98.6 F 08/05/25 13:52 Pulse 69 08/05/25 13:52 Resp 16 08/05/25 13:52 BP 117/69 08/05/25 13:52 Pulse Ox 95 08/05/25 08:00 O2 Del Method Room Air 08/05/25 08:00 O2 Flow Rate 6 07/30/25 12:41 BMI result Body Mass Index 24.8 Const: Other: Awake alert no acute distress Resp: Other: Clear to auscultation bilaterally no rales rhonchi or wheezes Cardio: Other: No S4; positive S1-S2; no S3 murmurs rubs or gallops GI: Other: Soft nontender nondistended normoactive bowel sounds Extrem: Other: No edema bilaterally Objective Data Active Medications Acetaminophen (Acetaminophen 325 Mg Tablet) 975 mg PO Q6H PRN PRN Reason: Pain, Mild 1-3,fever,headache Last Admin: 07/27/25 08:01 Dose: 975 mg Documented By: ROBEL Calcium Carbonate (Calcium Carbonate 750 Mg Tab.Chew) 750 mg PO Q4H PRN PRN Reason: Heartburn Fenofibrate (Fenofibrate 54 Mg Tablet) 54 mg PO DAILY [facility]LAVIA Last Admin: 08/05/25 08:50 Dose: 54 mg Documented By: ELISA Loperamide HCl (Loperamide Hcl 2 Mg Capsule) 2 mg PO Q6H PRN PRN Reason: Diarrhea Magnesium Hydroxide (Milk Of Magnesia 30 Ml Oral.Susp) 30 ml PO DAILY PRN PRN Reason: Constipation Melatonin (Melatonin 3 Mg Tablet) 6 mg PO BEDTIME PRN PRN Reason: Insomnia Last Admin: 08/04/25 20:55 Dose: 6 mg Documented By: ANA Naloxone HCl (Naloxone Hcl 0.4 Mg/Ml Vial) 0.04 mg IVPUSH Q5M PRN PRN Reason: Excessive sedation or RR < 8 Naloxone HCl (Naloxone Hcl 0.4 Mg/Ml Vial) 0.04 mg IVPUSH Q5M PRN PRN Reason: Excessive sedation or RR < 8 Naloxone HCl (Naloxone Hcl 0.4 Mg/Ml Vial) 0.04 mg IVPUSH Q5M PRN PRN Reason: Excessive sedation or RR < 8 Olanzapine (Olanzapine 10 Mg Tablet) 20 mg PO BEDTIME [facility] Last Admin: 08/04/25 20:55 Dose: 20 mg Documented By: ANA Ondansetron HCl (Ondansetron Hcl 4 Mg/2 Ml Vial) 4 mg IVPUSH Q8H PRN PRN Reason: Nausea and Vomiting Last Admin: 07/28/25 03:49 Dose: 4 mg Documented By: JAE Oxycodone HCl (Oxycodone Hcl Immed Release 5 Mg Tablet) 5 mg PO Q6H PRN PRN Reason: Pain, Severe (Pain Scale 7-10) Last Admin: 08/05/25 10:06 Dose: 5 mg Documented By: LAURA Pantoprazole Sodium (Pantoprazole Sodium 40 Mg/10 Ml Vial) 40 mg IVPUSH BID@0630,1630 [facility] Last Admin: 08/05/25 06:14 Dose: 40 mg Documented By: ANA Pravastatin Sodium (Pravastatin Sodium 40 Mg Tablet) 40 mg PO DAILY [facility] Last Admin: 08/05/25 08:50 Dose: 40 mg Documented By: ELISA Sertraline HCl (Sertraline Hcl 100 Mg Tablet) 100 mg PO DAILY [facility] Last Admin: 08/05/25 08:50 Dose: 100 mg Documented By: ELISA Sertraline HCl (Sertraline Hcl 25 Mg Tablet) 25 mg PO DAILY [facility] Last Admin: 08/05/25 08:51 Dose: 25 mg Documented By: ELISA Sodium Biphosphate/Sodium Phosphate (Sodium Phosphate,[place]-Dibasic 133 Ml Enema) 133 ml MT ONCE PRN PRN Reason: Poor Colonoscopy Prep Results Last Admin: 07/22/25 10:59 Dose: 133 ml Documented By: JAYJAY Sodium Biphosphate/Sodium Phosphate (Sodium Phosphate,[place]-Dibasic 133 Ml Enema) 133 ml MT ONCE PRN PRN Reason: Poor Colonoscopy Prep Results Sodium Chloride (0.9 % Sodium Chloride Flush 3 Ml Syringe) 3 ml IVFLUSH QSHIFT [facility] Last Admin: 08/05/25 08:51 Dose: 3 ml Documented By: ELISA Tramadol HCl (Tramadol Hcl 50 Mg Tablet) 50 mg PO Q6H PRN PRN Reason: Pain, Moderate(Pain Scale 4-6) Last Admin: 08/05/25 13:47 Dose: 50 mg Documented By: ELISA Labs 08/05/25 05:55 08/05/25 05:55 Labs: Laboratory Results - last 24 hr 08/05/25 08/05/25 05:55 08:26 MCV 84.3 MCH 25.8 L MCHC 30.6 L RDW 16.0 Plt Count 168 MPV 12.4 Immature Gran % (Auto) 0.8 H Neut % (Auto) 80.8 H Lymph % (Auto) 10.8 L [place] % (Auto) 7.1 Eos % (Auto) 0.2 Baso % (Auto) 0.3 Lymph # (Auto) 0.6 L [place] # (Auto) 0.4 Eos # (Auto) 0.0 Baso # (Auto) 0.0 Abs Immat Gran (auto) 0.05 H Absolute Neuts (auto) 4.8 Absolute Nucleated RBC 0.000 Nucleated RBC % (auto) 0.0 Anion Gap 10 L Estim Creat Clear Calc 61.9 Estimated GFR 55 Fasting Glucose 192 H Calcium 8.5 Total Bilirubin 0.2 AST 23 ALT 17 Alkaline Phosphatase 49 Total Protein 5.8 L Albumin 3.8 Blood Type A Positive Antibody Screen NEGATIVE Crossmatch See Detail Assessment and Plan (1) Rectal mass: Status: Acute Assessment and Plan: 70M PMH intellectual disability, hyperlipidemia, schizophrenia, anxiety, diabetes status post right toe amputation, hypertension presented with fall, bright red blood per rectum, found to have severe anemia 1.Acute on chronic blood loss anemia -Hemoglobin trending downward; we will transfuse 2 additional units -s/p colonoscopy 07/22/2025 suspicious for rectal mass, biopsy was negative, but high suspicion underwent repeat biopsy 07/30/25 -follow clinically 2.Right hydronephrosis due to obstructing stone -cysto 08/04/2025 tolerated well 3.Acute kidney injury -responded well to volume -follow renals/divalents 4.Schizophrenia -stable and well compensated 5.Diabetes -acceptable control on current therapies -lispro correctional scale -adjust as indicated DVT prophylaxis-mechanical due to severe anemia and bright red blood per rectum DNR/DNI reason for continued hospitalization: cysto prior to discharge (2) ABLA (acute blood loss anemia): Status: Acute Quality Stroke Does the patient have a stroke diagnosis?: No VTE Prior VTE?: No VTE Risk Level:: Medical - moderate - high VTE Device Contraindication: N/A - Device Ordered VTE Drug Contraindication: Treatment Not Indicated
[2025-08-06] MEDS: 0.9 % Sodium Chloride Flush 3 ML SYRINGE IVFLUSH ×3 (01:33→16:00)
[2025-08-06 03:24] VITALS: BP 105/56; PULSE 78; RESP 16; TEMP 36.3; O2SAT 94
[2025-08-06] MEDS: oxyCODONE HCl Immed Release 5 MG TABLET PO ×2 (03:29→14:54)
[2025-08-06 05:48] LABS: Hematocrit 31.4 % (42.0-52.0); Hemoglobin 9.9 g/dl (14.0-18.0); Imm Gran Abs Auto 0.06 X10*3/uL (0.00-0.03); Imm Gran Pct Auto 0.8 % (0.0-0.4); Lymphocytes Absolute Auto 1.1 X10*3/uL (1.2-4.9); MANUAL DIFF FLAG NO; Mean Corpuscular HGB Conc 31.5 g/dl (31.0-36.0); Mean Corpuscular Hemoglobin 26.8 pg (27.0-33.0); Mean Corpuscular Volume 84.9 fL (80.0-98.0); NRBC Abs Auto 0.000 X10*3/uL (0.0-0.012); NRBC Pct Auto 0.0 /100WBC (0.0-0.2); Platelet Count 186 X10*3/uL (160-400); Red Blood Count 3.70 X10*6/uL (4.60-5.80); White Blood Count 7.2 X10*3/uL (4.8-10.8)
[2025-08-06 06:04] LABS: Alanine Aminotransferase 16 U/L (0-40); Albumin Level 3.8 g/dL (3.5-5.0); Alkaline Phosphatase 50 U/L (39-117); Anion Gap 10 (12-20); Aspartate Amino Transferase 18 U/L (5-37); Blood Urea Nitrogen 15 mg/dL (9-16); Calcium 8.5 mg/dL (8.4-10.2); Carbon Dioxide 23 mmol/L (22-29); Chloride 114 mmol/L (96-108); Creatinine Clr Calc Pharmacy 66.0; Estimated Glomerular Filt Rate 59; Potassium 4.0 mmol/L (3.3-5.1); Sodium 143 mmol/L (135-145); Total Protein 5.9 g/dL (6.5-8.0)
[2025-08-06 08:00] VITALS: BP 117/71; PULSE 78; RESP 18; TEMP 36.6; O2SAT 96
--- NOTE | 2025-08-06 12:21 | P.PNUR_ITS ---
Subjective Subjective Date of Service: 08/06/25 Interval history: Seen this morning String stent removed from penis No need for immediate follow-up appointment with Urology Physical Exam 2 Vital Signs: Vital Signs: Last Vital Signs Temp 97.9 F 08/06/25 08:00 Pulse 78 08/06/25 08:00 Resp 18 08/06/25 08:00 BP 117/71 08/06/25 08:00 Pulse Ox 96 08/06/25 08:00 O2 Del Method Room Air 08/06/25 08:00 O2 Flow Rate 6 07/30/25 12:41 BMI result Body Mass Index 24.8 Const: General: cooperative, healthy appearing, comfortable and no acute distress Orientation/consciousness: patient oriented x3 HEENT: Face and sinus: Yes normal facial exam Mouth: moist mucous membranes Neck: Neck: Yes normal visual inspection, Yes full ROM and Yes trachea midline Chest: Chest palpation & inspection: normal inspection of the chest Resp: Effort & Inspection: normal respiratory effort, able to speak in complete sentences and no respiratory distress GI: Inspection: Yes normal to inspection Back/Spine/Pelvis: Cervical Spine: normal cervical lordosis Thoracic/Lumbar Spine: thoracic and lumbar spine normal to inspection Skin: General skin exam: no rashes or lesions noted Neuro: General: patient oriented x3, gait normal, tone normal and moves all extremities Extrem: General: Yes normal to inspection and Yes capillary refill normal Urology Results Labs 08/06/25 05:31 08/06/25 05:31 Labs: Laboratory Results - last 24 hr 08/05/25 08/06/25 08:26 05:31 WBC 7.2 RBC 3.70 L D Hgb 9.9 L D Hct 31.4 L D MCV 84.9 MCH 26.8 L MCHC 31.5 RDW 16.1 H Plt Count 186 MPV 11.6 Immature Gran % (Auto) 0.8 H Neut % (Auto) 72.7 Lymph % (Auto) 14.6 L [place] % (Auto) 11.0 Eos % (Auto) 0.3 Baso % (Auto) 0.6 Lymph # (Auto) 1.1 L [place] # (Auto) 0.8 Eos # (Auto) 0.0 Baso # (Auto) 0.0 Abs Immat Gran (auto) 0.06 H Absolute Neuts (auto) 5.2 Absolute Nucleated RBC 0.000 Nucleated RBC % (auto) 0.0 Sodium 143 Potassium 4.0 Chloride 114 H Carbon Dioxide 23 Anion Gap 10 L BUN 15 Creatinine 1.21 Estim Creat Clear Calc 66.0 Estimated GFR 59 Fasting Glucose 123 H Calcium 8.5 Total Bilirubin 0.2 AST 18 ALT 16 Alkaline Phosphatase 50 Total Protein 5.9 L Albumin 3.8 Blood Type A Positive Antibody Screen NEGATIVE Crossmatch See Detail Progress Note: A&P Assessment and plan (1) Ureteric stone: Status: Acute Plan Plan outpatient follow-up six-month urology Time Spent With Patient Time: Total time managing care of this patient today ____ minutes. Progress Note: Quality Stroke Does the patient have a stroke diagnosis?: No
--- NOTE | 2025-08-06 12:21 | MHC.CM.PN ---
Patient medically cleared for dc back to [facility] home, no services. Sister to transport. [facility] delivered. Plan reviewed w/ patient and sister. Lizzie Babcock aware of dc.
--- NOTE | 2025-08-06 12:28 | P.PNGS_ITS ---
Subjective Subjective Date of Service: 08/06/25 Interval history: Denies abdominal pain Says he has had some diarrhea but this has improved He underwent cystoscopy yesterday for ureteral stone with hydronephrosis No rectal bleeding recently Physical Exam 2 Vital Signs: Vital Signs: Last Vital Signs Temp 97.9 F 08/06/25 08:00 Pulse 78 08/06/25 08:00 Resp 18 08/06/25 08:00 BP 117/71 08/06/25 08:00 Pulse Ox 96 08/06/25 08:00 O2 Del Method Room Air 08/06/25 08:00 O2 Flow Rate 6 07/30/25 12:41 BMI result Body Mass Index 24.8 Const: General: comfortable and no acute distress Resp: Effort & Inspection: normal respiratory effort GI: Palpation (GI): Soft to palpation, not firm, nontender and no guarding Objective Data Active Medications Acetaminophen (Acetaminophen 325 Mg Tablet) 975 mg PO Q6H PRN PRN Reason: Pain, Mild 1-3,fever,headache Last Admin: 07/27/25 08:01 Dose: 975 mg Documented By: ROBEL Calcium Carbonate (Calcium Carbonate 750 Mg Tab.Chew) 750 mg PO Q4H PRN PRN Reason: Heartburn Fenofibrate (Fenofibrate 54 Mg Tablet) 54 mg PO DAILY [facility]LA[facility]IA Last Admin: 08/06/25 07:29 Dose: 54 mg Documented By: DULCE Loperamide HCl (Loperamide Hcl 2 Mg Capsule) 2 mg PO Q6H PRN PRN Reason: Diarrhea Magnesium Hydroxide (Milk Of Magnesia 30 Ml Oral.Susp) 30 ml PO DAILY PRN PRN Reason: Constipation Melatonin (Melatonin 3 Mg Tablet) 6 mg PO BEDTIME PRN PRN Reason: Insomnia Last Admin: 08/04/25 20:55 Dose: 6 mg Documented By: ANA Naloxone HCl (Naloxone Hcl 0.4 Mg/Ml Vial) 0.04 mg IVPUSH Q5M PRN PRN Reason: Excessive sedation or RR < 8 Naloxone HCl (Naloxone Hcl 0.4 Mg/Ml Vial) 0.04 mg IVPUSH Q5M PRN PRN Reason: Excessive sedation or RR < 8 Naloxone HCl (Naloxone Hcl 0.4 Mg/Ml Vial) 0.04 mg IVPUSH Q5M PRN PRN Reason: Excessive sedation or RR < 8 Olanzapine (Olanzapine 10 Mg Tablet) 20 mg PO BEDTIME [facility] Last Admin: 08/05/25 20:14 Dose: 20 mg Documented By: WINTER Ondansetron HCl (Ondansetron Hcl 4 Mg/2 Ml Vial) 4 mg IVPUSH Q8H PRN PRN Reason: Nausea and Vomiting Last Admin: 07/28/25 03:49 Dose: 4 mg Documented By: JAE Oxycodone HCl (Oxycodone Hcl Immed Release 5 Mg Tablet) 5 mg PO Q6H PRN PRN Reason: Pain, Severe (Pain Scale 7-10) Last Admin: 08/06/25 03:29 Dose: 5 mg Documented By: WINTER Pravastatin Sodium (Pravastatin Sodium 40 Mg Tablet) 40 mg PO DAILY [facility] Last Admin: 08/06/25 07:28 Dose: 40 mg Documented By: DULCE Sertraline HCl (Sertraline Hcl 100 Mg Tablet) 100 mg PO DAILY [facility] Last Admin: 08/06/25 07:29 Dose: 100 mg Documented By: DULCE Sertraline HCl (Sertraline Hcl 25 Mg Tablet) 25 mg PO DAILY [facility] Last Admin: 08/06/25 07:29 Dose: 25 mg Documented By: DULCE Sodium Biphosphate/Sodium Phosphate (Sodium Phosphate,[place]-Dibasic 133 Ml Enema) 133 ml NM ONCE PRN PRN Reason: Poor Colonoscopy Prep Results Last Admin: 07/22/25 10:59 Dose: 133 ml Documented By: JAYJAY Sodium Biphosphate/Sodium Phosphate (Sodium Phosphate,[place]-Dibasic 133 Ml Enema) 133 ml NM ONCE PRN PRN Reason: Poor Colonoscopy Prep Results Sodium Chloride (0.9 % Sodium Chloride Flush 3 Ml Syringe) 3 ml IVFLUSH QSHIFT [facility] Last Admin: 08/06/25 07:29 Dose: 3 ml Documented By: DULCE Tramadol HCl (Tramadol Hcl 50 Mg Tablet) 50 mg PO Q6H PRN PRN Reason: Pain, Moderate(Pain Scale 4-6) Last Admin: 08/05/25 20:14 Dose: 50 mg Documented By: WINTER Labs 08/06/25 05:31 08/06/25 05:31 Labs: Laboratory Results - last 24 hr 08/05/25 08/06/25 08:26 05:31 MCV 84.9 MCH 26.8 L MCHC 31.5 RDW 16.1 H Plt Count 186 MPV 11.6 Immature Gran % (Auto) 0.8 H Neut % (Auto) 72.7 Lymph % (Auto) 14.6 L [place] % (Auto) 11.0 Eos % (Auto) 0.3 Baso % (Auto) 0.6 Lymph # (Auto) 1.1 L [place] # (Auto) 0.8 Eos # (Auto) 0.0 Baso # (Auto) 0.0 Abs Immat Gran (auto) 0.06 H Absolute Neuts (auto) 5.2 Absolute Nucleated RBC 0.000 Nucleated RBC % (auto) 0.0 Anion Gap 10 L Estim Creat Clear Calc 66.0 Estimated GFR 59 Fasting Glucose 123 H Calcium 8.5 Total Bilirubin 0.2 AST 18 ALT 16 Alkaline Phosphatase 50 Total Protein 5.9 L Albumin 3.8 Blood Type A Positive Antibody Screen NEGATIVE Crossmatch See Detail Procedures Date of Service Date of Service: 08/06/25 Progress Note: A&P Assessment and plan (1) Rectal mass: Status: Acute Assessment and Plan: Repeat biopsy of rectal mass done with exam under anesthesia 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 Quality Stroke Does the patient have a stroke diagnosis?: No VTE Prior VTE?: No VTE Risk Level:: Medical - moderate - high VTE Device Contraindication: N/A - Device Ordered VTE Drug Contraindication: Treatment Not Indicated
--- NOTE | 2025-08-06 13:51 | P.DS_ITS ---
DS: Providers Provider Date of Service: 08/06/25 Date of admission: 07/20/25 20:07 Date of discharge: 08/06/25 Primary care physician: Jacek Atwood MD Consults: 07/21/25 07:22 Consult to Gastroenterology Routine Consulting Provider: [facility] Reason for consultation: brbpr, anemia 07/22/25 13:03 Consult to General Surgery Routine Consulting Provider: [facility] Reason for consultation: bleeding rectal mass 07/22/25 15:25 Consult to Hematology / Oncology Routine Consulting Provider: [facility] Reason for consultation: rectal mass DS: Diagnosis Discharge Diagnosis (1) Rectal mass: Status: Acute (2) Hydroureteronephrosis: Status: Acute (3) Ureteric stone: Status: Acute DS: Summary Hospital Course Hospital Course: 70 yo male with a pmhx significant for intellectual disability, HLD, schizophrenia, anxiety, T2DM s/p right toe amputation, HTN and OAB, who presented to the ED due to fall and altered mental status. the pt reportedly slid down the stairs and caught himself, no head strike. he has not been altered since arriving to the ED. the pt reports weakness and a fall 1 week ago as well. he did not mention rectal bleeding initially, but was found to be profoundly anemic and have active bright red rectal bleeding on exam in the ED. the pt then reported rectal bleeding with BMs for the past month. no abd pain, nausea or vomiting. Hospital course Patient admitted to general medical floor. Received total of 4 units of packed red cells initially for a hemoglobin of 4.3. He was seen in consultation by GI; on 07/22/2025 patient underwent colonoscopy which demonstrated a villous appearing friable ulcerated mass with spontaneous bleeding. 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 Questionable specimens prompted a repeat exam under anesthesia with repeat biopsies. Pathology again demonstrated tubulovillous adenoma. He required 2 additional units of blood after this procedure and his hemoglobin has remained stable. His additional presenting complaint was right hydronephrosis secondary to ureteral calculus. On 08/04/2025 patient underwent cystoscopy with right retrograde and stenting. Patient tolerated this procedure well. On 08/06/2025 Dr. Navas (urology) remove the stent at bedside. At this point he is medically acceptable for discharge. He will need to follow up with [facility] colorectal surgery for likely excision of that rectal mass. Time Attestation Discharge Coordination Time (in mins): 35 Quality: Safe Use of Opioids Does Pt have an Active Cancer Diagnosis on the Problem List?: No Quality: Stroke Does the patient have a stroke diagnosis?: No Physical Exam Vital Signs: Vital Signs: Last Vital Signs Temp 97.9 F 08/06/25 08:00 Pulse 78 08/06/25 08:00 Resp 18 08/06/25 08:00 BP 117/71 08/06/25 08:00 Pulse Ox 96 08/06/25 08:00 O2 Del Method Room Air 08/06/25 08:00 O2 Flow Rate 6 07/30/25 12:41 BMI result Body Mass Index 24.8 Const: Other: Awake alert no acute distress Resp: Other: Clear to auscultation bilaterally no rales rhonchi or wheezes Cardio: Other: No S4; positive S1-S2; no S3 murmurs rubs or gallops GI: Other: Soft nontender nondistended normoactive bowel sounds Extrem: Other: No edema bilaterally DS: Data Data Completed and Pending Completed studies during hospitalization [Text1]: Pending at discharge 07/22/25 12:47 Surgical [PTH] Routine 07/30/25 12:48 Surgical [PTH] Routine Labs on day of discharge: Laboratory Results - last 24 hr 08/05/25 08/06/25 08:26 05:31 WBC 7.2 RBC 3.70 L D Hgb 9.9 L D Hct 31.4 L D MCV 84.9 MCH 26.8 L MCHC 31.5 RDW 16.1 H Plt Count 186 MPV 11.6 Immature Gran % (Auto) 0.8 H Neut % (Auto) 72.7 Lymph % (Auto) 14.6 L [place] % (Auto) 11.0 Eos % (Auto) 0.3 Baso % (Auto) 0.6 Lymph # (Auto) 1.1 L [place] # (Auto) 0.8 Eos # (Auto) 0.0 Baso # (Auto) 0.0 Abs Immat Gran (auto) 0.06 H Absolute Neuts (auto) 5.2 Absolute Nucleated RBC 0.000 Nucleated RBC % (auto) 0.0 Sodium 143 Potassium 4.0 Chloride 114 H Carbon Dioxide 23 Anion Gap 10 L BUN 15 Creatinine 1.21 Estim Creat Clear Calc 66.0 Estimated GFR 59 Fasting Glucose 123 H Calcium 8.5 Total Bilirubin 0.2 AST 18 ALT 16 Alkaline Phosphatase 50 Total Protein 5.9 L Albumin 3.8 Blood Type A Positive Antibody Screen NEGATIVE Crossmatch See Detail Discharge Plan Discharge Anticipated Discharge Date/Time: 08/06/25 13:44 Patient Disposition: Xfer [facility] Discharge Diagnosis: Right hydronephrosis Referrals: Jacek Atwood MD [Primary Care Provider, Internal Medicine] - 1 Week Discharge Medications: New oxycodone 5 mg Tablet 5 mg PO Q6H PRN (Reason: Pain, Severe (Pain Scale 7-10)) Qty: 20 0RF Rx Instructions: Partial Fill upon patient request. Continued lovastatin 40 mg tablet 40 mg PO DAILY sertraline 100 mg tablet 100 mg PO DAILY Rx Instructions: TOTAL DOSE 125MG DAILY loperamide 2 mg Tablet 2 mg PO Q4H PRN (Reason: Diarrhea) Rx Instructions: administer after each loose stool until symptoms controlled; do not exceed 8 mg per 24 hrs acetaminophen 500 mg tablet 500 mg PO Q6H PRN (Reason: Pain) magnesium hydroxide [Milk of Magnesia] 400 mg/5 mL Suspension 30 ml PO DAILY PRN (Reason: Constipation) lisinopril 5 mg tablet 5 mg PO DAILY alum-mag hydroxide-simeth 200-200-20 mg/5 mL Suspension 30 ml PO Q4H PRN (Reason: GI DISTRESS) Rx Instructions: administer between meals and at bedtime oxybutynin chloride 5 mg tablet 5 mg PO BID sertraline 50 mg tablet 25 mg PO DAILY Rx Instructions: TOTAL DOSE 125MG DAILY olanzapine 20 mg tablet 20 mg PO BEDTIME fenofibrate 54 mg tablet 54 mg PO DAILY icosapent ethyl [Vascepa] 1 gram capsule 1 g PO DAILY Discontinued aspirin 81 mg tablet,delayed release (DR/EC) 81 mg PO DAILY Discharge Orders: Discharge Order (Routine); Ordered 08/06/25 Ordered By: Roc Morales Diet: Advance to usual diet Activity on Discharge: As tolerated Stand Alone Forms: Patient Portal Discharge page Print Language: [place]i Care Plan Goals: Resume meds as taken prior to hospitalization Health Concerns: An appointment needs to be made for [facility] colorectal surgeons for excision of large rectal polyp Plan of Treatment: As per receiving facility Assessment: See discharge summary
[2025-08-06 15:15] VITALS: BP 111/68; PULSE 93; RESP 17; TEMP 36.3; O2SAT 96
== END 2025-08-06 16:40 | DRG 660 ==
LOC: HO.ED 20:27 → HO.EDOVER 20:39 → HO.IMC 07-21 16:32 → HO.EDOVER 07-21 16:36 → HO.IMC 07-21 16:55 → HO.S3 07-25 23:03
PROVIDERS: Internal Medicine; Physician Assistant Medical; Surgery; Urology; Admitting Provider Physician Assistant; Emergency Provider Emergency Medicine; PCP Internal Medicine; Visit Provider Hospitalist
PROC: 0DJD8ZZ Inspection of Lower Intestinal Tract, Via Natural or Artificial Opening Endoscopic (ICD-10-PCS; CPT 45378; principal; 2025-07-22 14:20)
PROC: 0DBP7ZX Excision of Rectum, Via Natural or Artificial Opening, Diagnostic (ICD-10-PCS; principal; 2025-07-30 12:30)
PROC: 0T768DZ Dilation of Right Ureter with Intraluminal Device, Via Natural or Artificial Opening Endoscopic (ICD-10-PCS; principal; 2025-08-04 15:20)
DX: N13.2 Hydronephrosis with renal and ureteral calculous obstruction (principal); A08.11 Acute gastroenteropathy due to Norwalk agent; K62.5 Hemorrhage of anus and rectum; D62 Acute posthemorrhagic anemia; D61.818 Other pancytopenia; N17.9 Acute kidney failure, unspecified; F20.9 Schizophrenia, unspecified; D12.8 Benign neoplasm of rectum; K63.5 Polyp of colon; Z66 Do not resuscitate; K64.8 Other hemorrhoids; F79 Unspecified intellectual disabilities; E78.5 Hyperlipidemia, unspecified; K62.9 Disease of anus and rectum, unspecified; F41.9 Anxiety disorder, unspecified; N32.81 Overactive bladder; Z20.822 Contact with and (suspected) exposure to COVID-19; Z79.899 Other long term (current) drug therapy
CPT/HCPCS: 36415; 74178; 80048; 80053; 81001; 82272; 82378; 82728; 82947; 83036; 83540; 83615; 83735; 85014; 85018; 85025; 85027; 85610; 86850; 86900; 86901; 86923; 87493; 87507; 87637; 88305; 93005; 99285; C1758; C1769; C2617; J1100; J1956; J2003; J2250; J2405; J2470; J2704; J2795; J3010; J7120; P9016; Q9967

== ENCOUNTER → 2025-07-20 15:18 | Outpatient (BNV) | payer MEDICARE, MEDICAID, SELFPAY | PROVIDERS: Admitting Provider Physician Assistant; Emergency Provider Emergency Medicine; PCP Internal Medicine; Visit Provider Internal Medicine Cardiovascular Disease | DX: R41.82 Altered mental status, unspecified (principal) | CPT/HCPCS: 93010 ==

== ENCOUNTER → 2025-07-20 20:07 | Outpatient (BNV) | payer MEDICARE, MEDICAID, SELFPAY | PROVIDERS: Admitting Provider Physician Assistant; Emergency Provider Emergency Medicine; PCP Internal Medicine; Visit Provider Physician Assistant Surgical | DX: K62.89 Other specified diseases of anus and rectum (principal) | CPT/HCPCS: 99222; 99231; 99232; 99499 ==

== ENCOUNTER → 2025-07-20 20:07 | Outpatient (BNV) | payer MEDICARE, MEDICAID, SELFPAY | PROVIDERS: Admitting Provider Physician Assistant; Emergency Provider Emergency Medicine; PCP Internal Medicine; Visit Provider Internal Medicine | DX: K92.2 Gastrointestinal hemorrhage, unspecified (principal); K63.3 Ulcer of intestine; D12.2 Benign neoplasm of ascending colon; K64.8 Other hemorrhoids; Z91.199 Patient's noncompliance with other medical treatment and regimen due to unspecified reason | CPT/HCPCS: 45382; 45385 ==

== ENCOUNTER → 2025-07-20 20:07 | Outpatient (BNV) | payer MEDICARE, MEDICAID, SELFPAY | PROVIDERS: Admitting Provider Physician Assistant; Emergency Provider Emergency Medicine; PCP Internal Medicine; Visit Provider Internal Medicine | DX: F20.9 Schizophrenia, unspecified (principal) | CPT/HCPCS: 99231; 99232; 99499 ==

== ENCOUNTER → 2025-07-20 20:07 | Outpatient (BNV) | payer MEDICARE, MEDICAID, SELFPAY | PROVIDERS: Admitting Provider Physician Assistant; Emergency Provider Emergency Medicine; PCP Internal Medicine; Visit Provider Internal Medicine | DX: D49.0 Neoplasm of unspecified behavior of digestive system (principal); D50.0 Iron deficiency anemia secondary to blood loss (chronic); K62.5 Hemorrhage of anus and rectum | CPT/HCPCS: 99222 ==

== ENCOUNTER → 2025-07-20 20:07 | Outpatient (BNV) | payer MEDICARE, MEDICAID, SELFPAY | PROVIDERS: Admitting Provider Physician Assistant; Emergency Provider Emergency Medicine; PCP Internal Medicine; Visit Provider Urology | DX: N13.30 Unspecified hydronephrosis (principal) | CPT/HCPCS: 99223 ==